=== PATIENT | male | born 1950 | race Caucasian/White ===

== ENCOUNTER 2017-01-09 08:24 | Inpatient (IN) | payer BC, MEDICARE ==
[~2017-01-09] VITALS: Ht 175.3 cm; Wt 58.2 kg
[2017-01-09] MEDS ORDERED: 0.9 % SODIUM CHLORIDE 10 ML DISP.SYRIN. IV PRN (08:45)
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
[2017-01-09] MEDS ORDERED: IV NORMAL SALINE 1000ML BAG 1,000 ML IV SCH (09:00)
[2017-01-09] MEDS ORDERED: FENTANYL PF 100 MCG/2 ML VIAL. IV ONE (09:00)
[2017-01-09] MEDS ORDERED: ONDANSETRON PF 4 MG/2 ML VIAL. IV ONE (09:00)
[2017-01-09 09:03] LABS: BASO # 0.1 x10^3/uL (0.0-0.2); BASO % 0 % (0-3); EOS % 0 % (0-3); HEMATOCRIT 41.6 % (39.0-53.0); LYMPH # 0.9 x10^3/uL (1.0-4.8); LYMPH % 4 % (24-48); MEAN CORPUSCULAR HEMOGLOBIN 28 pg (25-35); MEAN CORPUSCULAR HGB CONC 34 g/dL (31-37); MEAN CORPUSCULAR VOLUME 83 fL (79-100); MONO % 6 % (0-9); NEUT % 90 % (31-73); PLATELET COUNT 212 x10^3/uL (140-400); RED CELL DISTRIBUTION WIDTH 14.1 % (11.5-14.5); WHITE BLOOD COUNT 21.3 x10^3/uL (4.0-11.0)
[2017-01-09] MEDS ORDERED: CONTRAST GIVEN MC PRN (09:15)
[2017-01-09] MEDS ORDERED: IOHEXOL 300 MG/ML 75 ML VIAL IV ONE (09:15)
[2017-01-09 09:17] LABS: CALCIUM 9.3 mg/dL (8.5-10.1); CREATININE 0.8 mg/dL (0.7-1.3); GFR 96.7; INR 1.5 (0.8-1.1); POTASSIUM 3.8 mmol/L (3.5-5.1); PROTHROMBIN TIME PATIENT 16.8 SEC (11.7-14.0)
[2017-01-09 09:23] LABS: ALBUMIN 3.4 g/dL (3.4-5.0); ALBUMIN/GLOBULIN RATIO 0.8 (1.0-1.7); TOTAL BILIRUBIN 2.7 mg/dL (0.2-1.0); TOTAL PROTEIN 7.7 g/dL (6.4-8.2)
[2017-01-09 09:30] LABS: CKMB INDEX 0.7 % (0-4); CKMB MASS 1.6 ng/mL (0.0-3.6)
--- NOTE | 2017-01-09 10:06 | RAD ---
CT of the abdomen and pelvis with contrast, 01/09/2017: History: Pain, nausea and vomiting Multidetector CT imaging was performed following IV administration of contrast. There are mild streaky right basilar opacities compatible with scarring and/or atelectasis. There is a given history of previous right lung surgery. There is a small loculated appearing pleural fluid collection medially in the right base. A small 7 mm lymph node type densities noted in the epicardial fat on the right. No hepatic mass or bile duct dilatation is detected. The gallbladder is mildly distended. Its morales are slightly thickened. No radiopaque gallstones are seen. There is streaky increased density in the pericholecystic fat compatible with edema. This also surrounds a segment of the adjacent ascending colon with associated mural thickening. No discrete fluid collection is seen to suggest abscess. No pancreatic abnormality is detected. The spleen contains multiple calcified granulomas but is otherwise unremarkable. No renal abnormality is detected. There is mild calcific plaquing of the abdominal aorta and its branches without evidence of aneurysm. There are mildly prominent lymph nodes at the portacaval and celiac axis levels. The largest node at the portacaval level measures 13 mm in short axis dimension. No other abdominal or pelvic adenopathy is seen. The prostate gland is mildly enlarged and contains calcifications. Colonic diverticula are present primarily in the sigmoid region. No paracolonic inflammatory process is seen at that level. There is radiopaque material in the colonic lumen which may represent medication or contrast from a previous diagnostic study. The large and small bowel loops are not dilated. No free air is evident in the abdomen. There is a trace amount of free fluid in the pelvis. Moderate scattered degenerative changes are present in the spine. IMPRESSION: 1. Right upper quadrant pericholecystic inflammatory process also surrounding a segment of the adjacent ascending colon with associated mural thickening. A gallbladder origin is most likely. Focal colitis or colonic neoplasm with microperforation are less likely possibilities. 2. Trace amount of free fluid in the pelvis. 3. Minimal portacaval adenopathy which may be on a reactive basis. 4. Sigmoid diverticulosis. PQRS Compliance Statement: One or more of the following individualized dose reduction techniques were utilized for this examination: 1. Automated exposure control 2. Adjustment of the mA and/or kV according to patient size 3. Use of iterative reconstruction technique
--- NOTE | 2017-01-09 10:31 | EKG ---
[facility] [address] [place] [address] Test Date: 2017-01-09 Test Time: 08:53:45 Pat Name: PHILIP ABDULLAHI Department: Room: Gender: Delivery Driver/Supervisor: : [id number] Requested By: SUJEY BURNETT Order Number: [id number] Reading MD: Measurements Intervals [place] Rate: 95 P: 36 AR: 148 QRS: 48 QRSD: 90 T: 48 QT: 332 QTc: 420 Interpretive Statements SINUS RHYTHM ATRIAL PREMATURE COMPLEX(ES) QRS(T) CONTOUR ABNORMALITY CONSIDER ANTEROSEPTAL MYOCARDIAL DAMAGE CONSIDER INFERIOR MYOCARDIAL DAMAGE POSSIBLY ABNORMAL ECG RI6.01 No previous ECG available for comparison
[2017-01-09] MEDS ORDERED: PIPERACILLIN/TAZOBACTAM 3.375 GM in IV NORMAL SALINE 50ML 50 ML IV ONE (11:15)
[2017-01-09] MEDS ORDERED: PIP/TAZO PER PHARMACY MC PRN (11:15)
[2017-01-09] MEDS ORDERED: MORPHINE SULFATE 10 MG/ML VIAL. IV ONE (11:15)
[2017-01-09 11:46] LABS: BILIRUBIN,URINE NEGATIVE (NEG); GLUCOSE,URINE NEGATIVE (NEG); NITRITE,URINE NEGATIVE (NEG); PROTEIN,URINE 30 mg/dL (NEG-TRACE)
[2017-01-09 12:05] LABS: BACTERIA,URINE 0 /HPF (0-FEW); SQUAMOUS EPITHELIAL CELL,UR OCC /LPF; WBC,URINE 0 /HPF (0-4)
[2017-01-09 12:32] LABS: % BASOS 1 % (0-3); % EOS 1 % (0-5); PLT ESTIMATE ADEQUATE (ADEQUATE)
--- NOTE | 2017-01-09 14:27 | ACF ---
Admission Forms Criteria ABDOMINAL PAIN Clinical Indications for Admission to Inpatient Care (Place 'X' for any and all applicable criteria): Admission is indicated for ANY ONE of the following(1)(2)(3)(4)(5): [X]I. Inpatient admission required rather than observation care (Also use Abdominal Pain: Observation Care, as appropriate) because of ANY ONE of the following: [ ]a) Severe pain requiring acute inpatient management [X]b) Identification of etiology/finding that requires inpatient care (eg, aortic dissection, free air) [ ]c) Absent bowel sounds with complete ileus(6) [ ]d) Suspected toxic megacolon [ ]e) Severe electrolyte abnormalities requiring inpatient care [ ]f) High fever or infection requiring inpatient admission as indicated by ANY ONE of following(7)(8): [ ] i) Appropriate outpatient or observational care antimicrobial treatment unavailable, not effective, or not feasible [ ] ii) Documented bacteremia [ ] iii) Temperature > 104.9 degrees F (oral) [ ] iv) T >103.1 F (oral) or < 96.8 F(rectal) that does not respond to all emergency treatment measures [ ]g) Signs of intestinal obstruction [B] [ ]h) Hemodynamic instability [ ]i) IV fluid to replace significant ongoing losses (greater than 3 L/m2 per day) (12)(13) [ ]j) Percutaneous or open drainage (eg, abscess, biliary tract ) procedures [ ]k) Parenteral nutrition regimen that must be implemented on inpatient basis [ ]l) Other condition,treatment or monitoring requiring inpatient admission. [ ]II. Peritoneal signs present [ ]III. Surgery needed that cannot be performed on an ambulatory basis. [ ]IV. Evaluation requires patient to not eat or drink for extended period ( eg, more than 24 hours). [ ]V. Contraindications and/or Inappropriate clinical situations for Observational Care in patients with abdominal pain, when ANY ONE of the following is required: [ ]a) Thorough evaluation is required to prevent catastrophic events due to delays in diagnosing (e.g.Mesenteric ischemia) 1,3 [ ]b) Patient with severe pathology or with chronic symptoms unlikely to improve in the ED stay (3) [ ]. General contraindications and/or Inappropriate clinical situations for Observational Care in patients with abdominal pain, when ANY ONE of the following is required: [ ]a) Prediction of prolongation of LOS based on ANY ONE of the following may be considered as a contraindication for observational care 2, 3, 4, 5, 6, 7, 8, 9, 10, 11 [ ]i) Age > 65 yrs. [ ]ii) Patient arriving by ambulance [ ]iii) Patient with high acuity [ ]iv) Patient requiring vital sign monitoring [ ]v) Patient on IV medication [ ]b) Systolic blood pressures 180mmHg 3,12 [ ]c) Patient with altered mental status including delirium and other alteration of consciousness, (3) [ ]d) Patient whose discharge disposition will be to a prison home or rehabilitation home should not be managed in Emergency Department Observation Unit. CMS rule requires 3 days hospital stay before such placement.3,13 [ ]e) Patient with failure to thrive due to broad array of etiologies 3,16,17 [ ]f) Inability to ambulate 3,14 Extended stay beyond goal length of stay may be needed for(2)(3): [ ]a) Persistent abdominal pain with suspected intra-abdominal process [ ]b) Diagnosed condition requiring continued stay (e.g., pancreatitis, complicated diverticulitis) [ ]c) Surgery (e.g., colectomy) The original [facility] content created by [employer] has been revised. The portions of the content which have been revised are identified through the use of italic text or in bold, and [facility] has neither reviewed nor approved the modified material.All other unmodified content is copyright [employer]. Please see references footnoted in the original [facility] edition 2016 Admission Criteria Met?: Yes LEONARDA FERREIRA Jan 09, 2017 14:27
[2017-01-09 15:00] VITALS: BP 129/65
--- NOTE | 2017-01-09 15:31 | RAD ---
Right upper quadrant abdominal ultrasound, 01/09/2017: History: Abdominal pain, gallstones The gallbladder contains multiple echogenic foci with posterior acoustic shadowing. The appearance is that of cholelithiasis. The gallbladder morales are not clearly defined but appear to be at the upper limits of normal in thickness. The common hepatic duct measures 5 mm. No intrahepatic bile duct dilatation is seen. Limited views of the liver and right kidney show no abnormality. The pancreas was obscured by overlying bowel. IMPRESSION: Cholelithiasis
[2017-01-09] MEDS ORDERED: IPRA3AMP NEB (16:18)
[2017-01-09] MEDS ORDERED: ASPI81TA2 PO (16:18)
[2017-01-09] MEDS ORDERED: LISI1TAB3 PO (16:18)
[2017-01-09] MEDS ORDERED: MELO-156 PO (16:18)
[2017-01-09] MEDS ORDERED: CHOL10003 PO (16:18)
[2017-01-09] MEDS ORDERED: SENN1TAB70 PO (16:18)
[2017-01-09] MEDS ORDERED: MAGN250T5 PO (16:18)
[2017-01-09] MEDS ORDERED: TIZA4TAB PO (16:18)
[2017-01-09] MEDS: PIPERACILLIN/TAZOBACTAM 3.375 GM in IV NORMAL SALINE 50ML 50 ML IV SCH (17:35)
[2017-01-09] MEDS: IV NORMAL SALINE 1000ML BAG 1,000 ML IV SCH ×2 (17:36→21:04)
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
[2017-01-09 19:20] VITALS: BP 125/70
[2017-01-09] MEDS: IPRATRPIUM/ALBUTEROL 0.5/2.5MG 3 ML NEBU. NEB SCH (20:27)
[2017-01-09] MEDS ORDERED: ACETAMINOPHEN 325 MG TABLET. PO PRN (20:30)
[2017-01-09] MEDS: tiZANidine 4 MG TABLET. PO SCH (20:57)
[2017-01-09] MEDS: ONDANSETRON PF 4 MG/2 ML VIAL. IV PRN (20:58)
[2017-01-09] MEDS: MORPHINE SULFATE 10 MG/ML VIAL. IV PRN (21:01)
[2017-01-09 23:18] VITALS: BP 78/48
[2017-01-10] VITALS (11 sets, daily range): BP systolic 90–125; BP diastolic 55–74
[2017-01-10 05:13] LABS: BASO # 0.1 x10^3/uL (0.0-0.2); BASO % 1 % (0-3); EOS % 1 % (0-3); HEMATOCRIT 36.1 % (39.0-53.0); HEMOGLOBIN 11.6 g/dL (13.0-17.5); LYMPH # 1.4 x10^3/uL (1.0-4.8); LYMPH % 11 % (24-48); MEAN CORPUSCULAR HEMOGLOBIN 28 pg (25-35); MEAN CORPUSCULAR HGB CONC 32 g/dL (31-37); MEAN CORPUSCULAR VOLUME 86 fL (79-100); MONO % 8 % (0-9); NEUT % 79 % (31-73); PLATELET COUNT 166 x10^3/uL (140-400)
[2017-01-10] MEDS: IV NORMAL SALINE 1000ML BAG 1,000 ML IV SCH (05:25)
[2017-01-10] MEDS: PIPERACILLIN/TAZOBACTAM 3.375 GM in IV NORMAL SALINE 50ML 50 ML IV SCH ×6 (05:25→23:58)
[2017-01-10] MEDS: MORPHINE SULFATE 10 MG/ML VIAL. IV PRN ×3 (05:34→19:49)
[2017-01-10] MEDS: ONDANSETRON PF 4 MG/2 ML VIAL. IV PRN (05:36)
[2017-01-10] MEDS ORDERED: SURGICEL FIBRILLAR 1X2 EACH. ONE (07:12)
[2017-01-10] MEDS ORDERED: BUPIVACAINE-EPI 0.25%-1:200000 MPF 30 ML VIAL. ONE (07:12)
[2017-01-10] MEDS ORDERED: IOHEXOL 300 MG/ML 50 ML VIAL. ONE (07:12)
[2017-01-10] MEDS ORDERED: SURGICEL HEMOSTAT 4X8 EACH. ONE (07:13)
[2017-01-10] MEDS: IPRATRPIUM/ALBUTEROL 0.5/2.5MG 3 ML NEBU. NEB SCH ×5 (07:24→20:21)
[2017-01-10] MEDS ORDERED: LIDOCAINE 2% 100 MG/5 ML SYRINGE. ONE (07:25)
[2017-01-10] MEDS ORDERED: PROPOFOL 20 ML IV ONE (07:25)
[2017-01-10] MEDS ORDERED: ROCURONIUM 50 MG/5 ML VIAL. ONE (07:25)
[2017-01-10] MEDS ORDERED: DEXAMETHASONE SOD PHOS 20 MG/5 ML VIAL. ONE (07:25)
[2017-01-10] MEDS ORDERED: ONDANSETRON PF 4 MG/2 ML VIAL. ONE (07:25)
[2017-01-10] MEDS ORDERED: FENTANYL PF 250 MCG/5 ML VIAL. ONE (07:30)
[2017-01-10] MEDS ORDERED: SUCCINYLCHOLINE 200 MG/10 ML VIAL. ONE (07:49)
[2017-01-10] MEDS ORDERED: IV RINGERS,LACTATED 1000ML 1,000 ML IV ONE (08:00)
[2017-01-10] MEDS ORDERED: EPHEDRINE PF IN SALINE 50 MG/5 ML DISP.SYRIN. IV ONE (08:01)
[2017-01-10] MEDS ORDERED: NEOSTIGMINE METHYLSULFATE 5 MG/5 ML SYRINGE. ONE (08:28)
[2017-01-10] MEDS ORDERED: GLYCOPYRROLATE 1 MG/5 ML VIAL. ONE (08:28)
--- NOTE | 2017-01-10 08:41 | RAD ---
Intraoperative cholangiogram History: Cholecystectomy. Procedure: A total of 1 fluoroscopic images of the right upper quadrant were obtained. The cystic duct was cannulated with surgeon and contrast was injected. Total fluoroscopic time was 25 seconds. Findings: The common hepatic bile duct and common bile duct are patent, without evidence of intraluminal filling defect or obstruction. Contrast empties normally into the duodenum. Impression: Unremarkable intraoperative cholangiogram. No evidence of choledocholithiasis.
[2017-01-10] MEDS ORDERED: DESFLURANE 61 TO 120 MINUTES IH ONE (08:51)
[2017-01-10] MEDS ORDERED: HYDROCHLOROTHIAZIDE PO SCH (09:00)
[2017-01-10] MEDS ORDERED: [UNRECOGNIZED DRUG - OTHER] PO SCH (09:00)
[2017-01-10] MEDS ORDERED: LISINOPRIL PO SCH (09:00)
--- NOTE | 2017-01-10 09:04 | PDOC ---
BRIEF OPERATIVE NOTE Date: Jan 10, 2017 Pre-Op Diagnosis Cholecystitis Post-Op Diagnosis Same, omental masses Procedure Performed L/S Cholecystectomy with IOC and omental biopsy Surgeon Max Anesthesia Type: General Blood Loss 30ml Specimens Obtained Gallbladder and omental mass Findings as above Complications None ASCENCION SCOTT MD Jan 10, 2017 09:04
[2017-01-10] MEDS ORDERED: ESMOLOL 100 MG/10 ML VIAL. IV ONE (09:24)
[2017-01-10] MEDS ORDERED: FENTANYL PF 100 MCG/2 ML VIAL. ONE (09:27)
[2017-01-10] MEDS ORDERED: IV RINGERS,LACTATED 1000ML 1,000 ML IV SCH (09:28)
[2017-01-10] MEDS: FENTANYL PF 100 MCG/2 ML VIAL. IV PRN ×3 (09:29→09:41)
[2017-01-10] MEDS ORDERED: LIDOCAINE 1% 1 ML SYRINGE. ID PRN (09:30)
[2017-01-10] MEDS ORDERED: FENTANYL PF 100 MCG/2 ML VIAL. IV PRN (09:30)
[2017-01-10] MEDS ORDERED: PROCHLORPERAZINE 10 MG/2 ML VIAL. IV PRN (09:30)
[2017-01-10] MEDS ORDERED: ONDANSETRON PF 4 MG/2 ML VIAL. IV PRN (09:30)
[2017-01-10] MEDS: MORPHINE SULFATE 2 MG/ML DISP.SYRIN. IV PRN ×2 (09:38→09:48)
[2017-01-10] MEDS ORDERED: METOPROLOL TARTRATE 5 MG/5 ML VIAL. ONE (09:49)
[2017-01-10] MEDS ORDERED: ACETAMINOPHEN INTRAVENOUS 100 ML IV ONE ×2 (10:17→10:30)
[2017-01-10] MEDS: HYDROMORPHONE 2 MG/ML VIAL. IV PRN ×2 (10:33→10:44)
[2017-01-10] MEDS: MAGNESIUM OXIDE 400 MG TABLET PO SCH (12:35)
[2017-01-10] MEDS: LISINOPRIL 5 MG TABLET. PO SCH (12:35)
[2017-01-10] MEDS: HYDROCHLOROTHIAZIDE 25 MG TABLET PO SCH (12:35)
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
[2017-01-10] MEDS: OXYCODONE/APAP 5/325 TABLET. PO PRN ×2 (17:02→21:04)
[2017-01-10 19:31] LABS: ALBUMIN 2.6 g/dL (3.4-5.0); ALBUMIN/GLOBULIN RATIO 0.7 (1.0-1.7); CALCIUM 8.4 mg/dL (8.5-10.1); CREATININE 0.9 mg/dL (0.7-1.3); GFR 84.4; POTASSIUM 3.6 mmol/L (3.5-5.1); TOTAL BILIRUBIN 1.6 mg/dL (0.2-1.0); TOTAL PROTEIN 6.4 g/dL (6.4-8.2)
[2017-01-10] MEDS: tiZANidine 4 MG TABLET. PO SCH (21:04)
[2017-01-11] MEDS ORDERED: ALBUTEROL SULFATE 2.5 MG/3 ML NEBU. NEB PRN (00:30)
[2017-01-11] MEDS ORDERED: METOPROLOL TART IMMED RELEASE 25 MG TABLET. PO ONE (02:00)
[2017-01-11 03:00] VITALS: BP 96/63
[2017-01-11] MEDS: PIPERACILLIN/TAZOBACTAM 3.375 GM in IV NORMAL SALINE 50ML 50 ML IV SCH ×3 (05:30→17:37)
[2017-01-11 07:00] VITALS: BP 118/67
[2017-01-11] MEDS: IPRATRPIUM/ALBUTEROL 0.5/2.5MG 3 ML NEBU. NEB SCH ×4 (07:44→20:05)
[2017-01-11] MEDS: HYDROCHLOROTHIAZIDE 25 MG TABLET PO SCH (08:31)
[2017-01-11] MEDS: MAGNESIUM OXIDE 400 MG TABLET PO SCH (08:32)
[2017-01-11] MEDS: LISINOPRIL 5 MG TABLET. PO SCH (08:32)
[2017-01-11] MEDS: TAMSULOSIN 0.4 MG CAP.ER.24H. PO SCH (08:32)
[2017-01-11] MEDS: OXYCODONE/APAP 5/325 TABLET. PO PRN ×2 (08:34→17:37)
--- NOTE | 2017-01-11 09:52 | PDOC ---
SURGICAL PROGRESS NOTE Subjective Pt with c/o soreness, nikunj PO, on oxygen, required jones cath placement yesterday for urinary retention Vital Signs Vital Signs Date Time Temp Pulse Resp B/P Pulse Ox O2 Delivery O2 Flow Rate FiO2 01/11/17 08:34 Nasal Cannula 2.0 01/11/17 08:32 73 118/67 01/11/17 07:45 98 01/11/17 07:00 98.1 20 98.1 I&O Intake and Output 01/11/17 06:59 Intake Total 1100 ml Output Total 975 ml Balance 125 ml IV Total 1100 ml Output Urine Total 950 ml Estimated Blood Loss 25 ml # Voids 1 PATIENT HAS A JONES: Yes (urinary retention) Abdomen: Soft, No tenderness, No masses Labs Laboratory Tests Test 01/09/17 11:23 01/10/17 04:54 Urine Collection Type Unknown Urine Color Yellow Urine Clarity Clear Urine pH 6.0 Urine Specific [place] >=1.030 Urine Protein 30mg/dL (NEG-TRACE) Urine Glucose (UA) Negativemg/dL (NEG) Urine Ketones (Stick) >=80mg/dL (NEG) Urine Blood Moderate (NEG) Urine Nitrite Negative (NEG) Urine Bilirubin Negative (NEG) Urine Urobilinogen Dipstick 2.0mg/dL (0.2 mg/dL) Urine Leukocyte Esterase Negative (NEG) Urine RBC 3-5/HPF (0-2) Urine WBC 0/HPF (0-4) Urine Squamous Epithelial Cells Occ/LPF Urine Bacteria 0/HPF (0-FEW) White Blood Count 13.0x10^3/uL (4.0-11.0) Red Blood Count 4.20x10^6/uL (4.30-5.70) Hemoglobin 11.6g/dL (13.0-17.5) Hematocrit 36.1% (39.0-53.0) Mean Corpuscular Volume 86fL (79-100) Mean Corpuscular Hemoglobin 28pg (25-35) Mean Corpuscular Hemoglobin Concent 32g/dL (31-37) Red Cell Distribution Width 14.0% (11.5-14.5) Platelet Count 166x10^3/uL (140-400) Neutrophils (%) (Auto) 79% (31-73) Lymphocytes (%) (Auto) 11% (24-48) Monocytes (%) (Auto) 8% (0-9) Eosinophils (%) (Auto) 1% (0-3) Basophils (%) (Auto) 1% (0-3) Neutrophils # (Auto) 10.3x10^3uL (1.8-7.7) Lymphocytes # (Auto) 1.4x10^3/uL (1.0-4.8) Monocytes # (Auto) 1.1x10^3/uL (0.0-1.1) Eosinophils # (Auto) 0.1x10^3/uL (0.0-0.7) Basophils # (Auto) 0.1x10^3/uL (0.0-0.2) Sodium Level 140mmol/L (136-145) Potassium Level 3.6mmol/L (3.5-5.1) Chloride Level 106mmol/L (98-107) Carbon Dioxide Level 28mmol/L (21-32) Anion Gap 6 (6-14) Blood Urea Nitrogen 19mg/dL (8-26) Creatinine 0.9mg/dL (0.7-1.3) Estimated GFR (Cockcroft-Gault) 84.4 BUN/Creatinine Ratio 21 (6-20) Glucose Level 100mg/dL (70-99) Calcium Level 8.4mg/dL (8.5-10.1) Total Bilirubin 1.6mg/dL (0.2-1.0) Aspartate Amino Transf (AST/SGOT) 39U/L (15-37) Alanine Aminotransferase (ALT/SGPT) 62U/L (16-63) Alkaline Phosphatase 76U/L (46-116) Total Protein 6.4g/dL (6.4-8.2) Albumin 2.6g/dL (3.4-5.0) Albumin/Globulin Ratio 0.7 (1.0-1.7) Problem List Problems Medical Problems: (1) Abdominal pain Status: Acute (2) Cholecystitis Status: Acute Assessment/Plan s/p lap la nena ADAT wean oxygen urinary retention Problems: KATHY CARDENAS MD Jan 11, 2017 09:52
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
[2017-01-11 11:00] VITALS: BP 122/67
[2017-01-11] MEDS: MORPHINE SULFATE 10 MG/ML VIAL. IV PRN (11:40)
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
[2017-01-11 14:18] LABS: CALCIUM 8.3 mg/dL (8.5-10.1); CREATININE 0.8 mg/dL (0.7-1.3); GFR 96.7; MAGNESIUM 2.1 mg/dL (1.8-2.4); POTASSIUM 3.5 mmol/L (3.5-5.1)
[2017-01-11 15:00] VITALS: BP 119/61
[2017-01-11 19:00] VITALS: BP 136/70
[2017-01-11] MEDS: METOPROLOL TART IMMED RELEASE 25 MG TABLET. PO SCH (21:15)
[2017-01-11] MEDS: tiZANidine 4 MG TABLET. PO SCH (21:15)
[2017-01-11 23:00] VITALS: BP 126/62
[2017-01-12 03:00] VITALS: BP 104/65
[2017-01-12] MEDS: PIPERACILLIN/TAZOBACTAM 3.375 GM in IV NORMAL SALINE 50ML 50 ML IV SCH ×4 (05:43→12:00)
[2017-01-12] MEDS: OXYCODONE/APAP 5/325 TABLET. PO PRN ×3 (05:46→23:30)
[2017-01-12 07:00] VITALS: BP 112/68
[2017-01-12] MEDS: IPRATRPIUM/ALBUTEROL 0.5/2.5MG 3 ML NEBU. NEB SCH ×4 (07:36→19:39)
[2017-01-12] MEDS: METOPROLOL TART IMMED RELEASE 25 MG TABLET. PO SCH ×2 (08:19→20:44)
[2017-01-12] MEDS: TAMSULOSIN 0.4 MG CAP.ER.24H. PO SCH (09:21)
[2017-01-12] MEDS: MAGNESIUM OXIDE 400 MG TABLET PO SCH (09:21)
[2017-01-12] MEDS: ONDANSETRON ODT 4 MG TAB.RAPDIS. PO PRN (09:21)
[2017-01-12] MEDS: HYDROCHLOROTHIAZIDE 25 MG TABLET PO SCH (09:21)
[2017-01-12] MEDS: LISINOPRIL 5 MG TABLET. PO SCH (09:22)
[2017-01-12 11:00] VITALS: BP 120/73
--- NOTE | 2017-01-12 11:22 | PDOC ---
PROGRESS NOTES Subjective Subjective Feeling better, no new comp Objective Objective Vital Signs Date Time Temp Pulse Resp B/P Pulse Ox O2 Delivery O2 Flow Rate FiO2 01/12/17 09:22 74 112/68 01/12/17 08:10 Room Air 2.0 01/12/17 07:38 98 01/12/17 07:00 99.3 16 99.3 Intake and Output 01/12/17 07:00 Intake Total 250 ml Output Total 1550 ml Balance -1300 ml Intake Oral 200 ml IV Total 50 ml Output Urine Total 1550 ml Stool Total 0 ml Physical Exam Abdomen: Normal bowel sounds, Soft Heart: Normal S1, Normal S2, Other (no gallops clicks rubs or obvious murmurs) Extremities: No cyanosis, No edema, Normal pulses General: Alert, Oriented X3, Cooperative, No acute distress HEENT: Atraumatic, EOMI Lungs: Clear to auscultation Neuro: Normal speech, Other (left upper extremtiy weakness) Psych/Mental Status: Mental status NL, Mood NL Skin: No significant lesion Assessment Assessment 1. Cardiac arrhythmia: Tele showed few episodes of atrial tachycardia, few with aberrant conduction resulting in wide complexes. Mg level normal. Continue beta blockers. Check 2D echo to assess LV function. We will consider event monitor as outpatient 2. hypertension - controlled 3. s/p lap la nena - per surgical team Plan Plan of Care Problems Medical Problems: (1) Abdominal pain Status: Acute (2) Cholecystitis Status: Acute Comment Review of Relevant I have reviewed the following items sammie (where applicable) has been applied. Labs Laboratory Tests Test 01/11/17 13:50 Sodium Level 135mmol/L (136-145) Potassium Level 3.5mmol/L (3.5-5.1) Chloride Level 99mmol/L (98-107) Carbon Dioxide Level 29mmol/L (21-32) Anion Gap 7 (6-14) Blood Urea Nitrogen 21mg/dL (8-26) Creatinine 0.8mg/dL (0.7-1.3) Estimated GFR (Cockcroft-Gault) 96.7 Glucose Level 153mg/dL (70-99) Calcium Level 8.3mg/dL (8.5-10.1) Magnesium Level 2.1mg/dL (1.8-2.4) Medications Current Medications Metoprolol Tartrate (Lopressor) 12.5 mg BID PO Last administered on 01/12/17 08 :19; Start 01/11/17 at 21:00 Ondansetron HCl (Zofran Odt) 4 mg PRN Q4HRS PRN PO NAUSEA/VOMITING Last administered on 01/12/17 09:21; Start 01/12/17 at 09:15 Vitals/I & O Vital Sign - Last 24 Hours 01/11/17 01/11/17 01/11/17 01/11/17 11:40 12:24 15:00 17:37 Temp 98.3 98.3 Pulse 90 Resp 20 B/P 119/61 Pulse Ox 98 O2 Delivery Nasal Cannula Nasal Cannula Room Air Nasal Cannula O2 Flow Rate 2.0 2.0 2.0 01/11/17 01/11/17 01/11/17 01/11/17 18:46 19:00 20:00 20:07 Temp 98.1 98.1 Pulse 102 Resp 20 B/P 136/70 Pulse Ox 94 97 O2 Delivery Room Air Room Air Room Air O2 Flow Rate 2.0 3.0 01/11/17 01/11/17 01/12/17 01/12/17 21:15 23:00 03:00 05:46 Temp 98.4 98.4 98.4 98.4 Pulse 102 89 77 Resp 18 18 20 B/P 136/70 126/62 104/65 Pulse Ox 95 97 97 O2 Delivery Nasal Cannula Nasal Cannula Room Air O2 Flow Rate 2.0 2.0 01/12/17 01/12/17 01/12/17 01/12/17 06:46 07:00 07:38 08:10 Temp 99.3 99.3 Pulse 74 Resp 20 16 B/P 112/68 Pulse Ox 93 98 98 O2 Delivery BiPAP/CPAP Nasal Cannula Nasal Cannula Room Air O2 Flow Rate 2.0 2.0 2.0 01/12/17 01/12/17 08:19 09:22 Pulse 74 74 B/P 112/68 112/68 Intake and Output 01/11/17 01/11/17 01/12/17 15:00 23:00 07:00 Intake Total 50 ml 200 ml Output Total 1100 ml 450 ml Balance 50 ml -1100 ml -250 ml LILIAN MOSELEY MD Jan 12, 2017 11:22
--- NOTE | 2017-01-12 12:45 | PDOC ---
PROGRESS NOTES Subjective Subjective Patient with out new complaints. more episodes of svt noted cardiology started beta sukumar. Ayoub still in for urinary retention await urology eval possible voiding trial in AM and home if stable. Ayoub with leg bag and urology F/U if still in retention. Objective Objective Vital Signs Date Time Temp Pulse Resp B/P Pulse Ox O2 Delivery O2 Flow Rate FiO2 01/12/17 12:18 Nasal Cannula 2.0 01/12/17 11:00 98.1 83 20 120/73 96 98.1 Intake and Output 01/12/17 07:00 Intake Total 250 ml Output Total 1550 ml Balance -1300 ml Intake Oral 200 ml IV Total 50 ml Output Urine Total 1550 ml Stool Total 0 ml Physical Exam Abdomen: Normal bowel sounds Heart: Regular rate Extremities: No clubbing General: Alert Lungs: Clear to auscultation Assessment Assessment Problems Medical Problems: (1) Abdominal pain Status: Acute (2) Cholecystitis Status: Acute POD #2 lap cholecystectomy Urinary retention SVT with PAC and aberrant conduction Acute cholecystitis. Underlying chronic obstructive pulmonary disease. Hypertension. 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 Labs Laboratory Tests Test 01/11/17 13:50 Sodium Level 135mmol/L (136-145) Potassium Level 3.5mmol/L (3.5-5.1) Chloride Level 99mmol/L (98-107) Carbon Dioxide Level 29mmol/L (21-32) Anion Gap 7 (6-14) Blood Urea Nitrogen 21mg/dL (8-26) Creatinine 0.8mg/dL (0.7-1.3) Estimated GFR (Cockcroft-Gault) 96.7 Glucose Level 153mg/dL (70-99) Calcium Level 8.3mg/dL (8.5-10.1) Magnesium Level 2.1mg/dL (1.8-2.4) Laboratory Tests Test 01/11/17 13:50 Sodium Level 135mmol/L (136-145) Potassium Level 3.5mmol/L (3.5-5.1) Chloride Level 99mmol/L (98-107) Carbon Dioxide Level 29mmol/L (21-32) Anion Gap 7 (6-14) Blood Urea Nitrogen 21mg/dL (8-26) Creatinine 0.8mg/dL (0.7-1.3) Estimated GFR (Cockcroft-Gault) 96.7 Glucose Level 153mg/dL (70-99) Calcium Level 8.3mg/dL (8.5-10.1) Magnesium Level 2.1mg/dL (1.8-2.4) Medications Current Medications Sodium Chloride (Iv Sodium Chloride 0.9% 1000ml Bag) 1,000 ml @ 1,000 mls/hr Q1H IV Last administered on 01/09/17 09:53; Start 01/09/17 at 09:00; Stop at 09:59; Status DC Sodium Chloride (Normal Saline Flush) 10 ml QSHIFT PRN IV AFTER MEDS AND BLOOD DRAWS; Start 01/09/17 at 08:45; Stop 01/12/17 at 12:31; Status DC Fentanyl Citrate (Fentanyl 2ml Vial) 50 mcg 1X ONCE IV Last administered on 09:54; Start 01/09/17 at 09:00; Stop 01/09/17 at 09:01; Status DC Ondansetron HCl (Zofran) 4 mg 1X ONCE IV Last administered on 01/09/17 09:54; Start 01/09/17 at 09:00; Stop 01/09/17 at 09:01; Status DC Iohexol (Omnipaque 300 Mg/ml) 75 ml 1X ONCE IV Last administered on 01/09/17 09:26; Start 01/09/17 at 09:15; Stop 01/09/17 at 09:16; Status DC Info 1 each 1 each PRN DAILY PRN MC SEE COMMENTS; Start 01/09/17 at 09:15; Stop 01/11/17 at 09:14; Status DC Piperacillin Sod/ Tazobactam Sod/ Sodium Chloride (Zosyn/Iv Sodium Chloride 0.9 % 50ml) 50 ml @ 100 mls/hr 1X ONCE IV Last administered on 01/09/17 11:19; Start 01/09/17 at 11:15; Stop 01/09/17 at 11:44; Status DC Morphine Sulfate 5 mg 1X ONCE IV Last administered on 01/09/17 11:19; Start at 11:15; Stop 01/09/17 at 11:16; Status DC Ondansetron HCl 4 mg 4 mg PRN Q8HRS PRN IV NAUSEA/VOMITING Last administered on 01/10/17 05:36; Start 01/09/17 at 11:00; Stop 01/10/17 at 10:59; Status DC Sodium Chloride (Iv Sodium Chloride 0.9% 1000ml Bag) 1,000 ml @ 125 mls/hr Q8H IV Last administered on 01/10/17 05:25; Start 01/09/17 at 11:30; Stop 01/10/17 at 11:29; Status DC Morphine Sulfate 5 mg PRN Q4HRS PRN IV pain Last administered on 01/11/17 11:40 ; Start 01/09/17 at 11:00; Stop 01/12/17 at 12:31; Status DC Piperacillin Sod/ Tazobactam Sod 1 each 1 each PRN DAILY PRN MC SEE COMMENTS; Start 01/09/17 at 11:15; Stop 01/12/17 at 12:31; Status DC Piperacillin Sod/ Tazobactam Sod/ Sodium Chloride (Zosyn/Iv Sodium Chloride 0.9 % 50ml) 50 ml @ 100 mls/hr Q6HRS IV Last administered on 01/12/17 05:43; Start 01/09/17 at 18:00; Stop 01/12/17 at 12:31; Status DC Albuterol/ Ipratropium (Duoneb) 3 ml RTQID NEB Last administered on 01/12/17 12 :17; Start 01/09/17 at 20:00 Tizanidine HCl (Zanaflex) 4 mg QHS PO Last administered on 01/11/17 21:15; Start 01/09/17 at 21:00 Non-Formulary Medication 0.5 tab DAILY PO ; Start 01/10/17 at 09:00; Status UNV Magnesium Oxide (Magnesium Oxide) 200 mg DAILY PO Last administered on 09:21; Start 01/10/17 at 09:00 Lisinopril (Prinivil) 5 mg DAILY PO Last administered on 01/12/17 09:22; Start 01/10/17 at 09:00 Hydrochlorothiazide (Hydrodiuril) 6.25 mg DAILY PO Last administered on 09:21; Start 01/10/17 at 09:00; Stop 01/12/17 at 12:31; Status DC Acetaminophen (Tylenol) 650 mg PRN Q4HRS PRN PO MILD PAIN / TEMP Last administered on 01/09/17 20:57; Start 01/09/17 at 20:30 Cellulose 1 each STK-MED ONCE .ROUTE ; Start 01/10/17 at 07:12; Stop 01/10/17 at 07:13; Status DC Iohexol (Omnipaque 300 Mg/ml) 50 ml STK-MED ONCE .ROUTE Last administered on 08:07; Start 01/10/17 at 07:12; Stop 01/10/17 at 07:13; Status DC Bupivacaine HCl/ Epinephrine Bitart (Sensorcaine-Epi 0.25%-1:064998 Mpf) 30 ml STK-MED ONCE .ROUTE Last administered on 01/10/17 08:07; Start 01/10/17 at 07:12 ; Stop 01/10/17 at 07:13; Status DC Cellulose 1 each STK-MED ONCE .ROUTE ; Start 01/10/17 at 07:13; Stop 01/10/17 at 07:14; Status DC Dexamethasone Sodium Phosphate (Decadron) 20 mg STK-MED ONCE .ROUTE ; Start 01/10 at 07:25; Stop 01/10/17 at 07:26; Status DC Ondansetron HCl 4 mg 4 mg STK-MED ONCE .ROUTE ; Start 01/10/17 at 07:25; Stop 01/10/17 at 07:26; Status DC Propofol (Diprivan) 20 ml @ As Directed STK-MED ONCE IV ; Start 01/10/17 at 07:25 ; Stop 01/10/17 at 07:26; Status DC Lidocaine HCl (Lidocaine HCl 2% Abboject) 100 mg STK-MED ONCE .ROUTE ; Start 01/10/17 at 07:25; Stop 01/10/17 at 07:26; Status DC Rocuronium [place] (Zemuron) 50 mg STK-MED ONCE .ROUTE ; Start 01/10/17 at 07:25 ; Stop 01/10/17 at 07:26; Status DC Fentanyl Citrate (Fentanyl 5ml Vial) 250 mcg STK-MED ONCE .ROUTE ; Start at 07:30; Stop 01/10/17 at 07:31; Status DC Succinylcholine Chloride 200 mg 200 mg STK-MED ONCE .ROUTE ; Start 01/10/17 at 07 :49; Stop 01/10/17 at 07:50; Status DC Lactated Ringer's (Iv Lactated Ringers) 1,000 ml @ 75 mls/hr 1X ONCE IV Last administered on 01/10/17t 07:20; Start 01/10/17 at 08:00; Stop 01/10/17 at 21:19; Status DC Ephedrine Sulfate 50 mg STK-MED ONCE IV ; Start 01/10/17 at 08:01; Stop 01/10/17 at 08:02; Status DC Neostigmine Methylsulfate 5 mg STK-MED ONCE .ROUTE ; Start 01/10/17 at 08:28; Stop 01/10/17 at 08:29; Status DC Glycopyrrolate (Robinul) 1 mg STK-MED ONCE .ROUTE ; Start 01/10/17 at 08:28; Stop 01/10/17 at 08:29; Status DC Desflurane (Suprane) 60 ml STK-MED ONCE IH ; Start 01/10/17 at 08:51; Stop at 08:52; Status DC Oxycodone/ Acetaminophen (Percocet 5/325) 1 tab PRN Q4HRS PRN PO PAIN; Start at 09:15 Oxycodone/ Acetaminophen (Percocet 5/325) 2 tab PRN Q4HRS PRN PO PAIN Last administered on 01/12/17t 05:46; Start 01/10/17 at 09:15 Esmolol HCl (Brevibloc) 100 mg STK-MED ONCE IV ; Start 01/10/17 at 09:24; Stop at 09:25; Status DC Fentanyl Citrate (Fentanyl 2ml Vial) 100 mcg STK-MED ONCE .ROUTE ; Start at 09:27; Stop 01/10/17 at 09:28; Status DC Ondansetron HCl (Zofran) 4 mg PRN Q6HRS PRN IV NAUSEA/VOMITING; Start 01/10/17 at 09:30; Stop 01/11/17 at 09:29; Status DC Fentanyl Citrate (Fentanyl 2ml Vial) 25 mcg PRN Q5MIN PRN IV MILD PAIN Last administered on 01/10/17 09:41; Start 01/10/17 at 09:30; Stop 01/11/17 at 09:29; Status DC Fentanyl Citrate (Fentanyl 2ml Vial) 50 mcg PRN Q5MIN PRN IV MODERATE PAIN; Start 01/10/17 at 09:30; Stop 01/11/17 at 09:29; Status DC Morphine Sulfate 1 mg 1 mg PRN Q10MIN PRN IV SEVERE PAIN Last administered on 09:48; Start 01/10/17 at 09:30; Stop 01/11/17 at 09:29; Status DC Lactated Ringer's (Iv Lactated Ringers) 1,000 ml @ 0 mls/hr Q0M IV ; Start 01/10 at 09:28; Stop 01/10/17 at 21:27; Status DC Lidocaine HCl 2 ml PRN 1X PRN ID PRIOR TO IV START; Start 01/10/17 at 09:30; Stop 01/11/17 at 09:29; Status DC Hydromorphone HCl (Dilaudid) 0.5 mg PRN Q10MIN PRN IV SEV PAIN, Second choice Last administered on 01/10/17 10:44; Start 01/10/17 at 09:30; Stop 01/11/17 at 09: 29; Status DC Prochlorperazine Edisylate (Compazine) 5 mg PACU PRN PRN IV NAUSEA, MRX1; Start 01/10/17 at 09:30; Stop 01/11/17 at 09:29; Status DC Metoprolol Tartrate 5 mg 5 mg STK-MED ONCE .ROUTE ; Start 01/10/17 at 09:49; Stop 01/10/17 at 09:50; Status DC Acetaminophen 100 ml @ As Directed STK-MED ONCE IV ; Start 01/10/17 at 10:17; Stop 01/10/17 at 10:18; Status DC Acetaminophen (Ofirmev) 100 ml @ 400 mls/hr 1X ONCE IV Last administered on 10:21; Start 01/10/17 at 10:30; Stop 01/10/17 at 10:44; Status DC Albuterol Sulfate (Ventolin Neb Soln) 2.5 mg PRN QID PRN NEB SHORTNESS OF BREATH Last administered on 01/11/17 00:25; Start 01/11/17 at 00:30 Metoprolol Tartrate (Lopressor) 25 mg 1X ONCE PO Last administered on 02:15; Start 01/11/17 at 02:00; Stop 01/11/17 at 02:01; Status DC Tamsulosin HCl (Flomax) 0.4 mg DAILY PO Last administered on 01/12/17 09:21; Start 01/11/17 at 09:00 Metoprolol Tartrate (Lopressor) 12.5 mg BID PO Last administered on 01/12/17 08 :19; Start 01/11/17 at 21:00 Ondansetron HCl (Zofran Odt) 4 mg PRN Q4HRS PRN PO NAUSEA/VOMITING Last administered on 01/12/17 09:21; Start 01/12/17 at 09:15 Amoxicillin/ Clavulanate Potassium (Augmentin 875/ 125mg) 1 tab BID PO ; Start 01/12/17 at 21:00 Active Scripts Active Reported Aspirin 81 Mg Tab.chew 1 Tab PO DAILY Vitamin D3 (Cholecalciferol (Vitamin D3)) 1,000 Unit Tablet 1 Tab PO DAILY Magnesium (Magnesium Oxide) 250 Mg Tablet 250 Mg PO DAILY Stool Softener Tablet (Sennosides/Docusate Sodium) 1 Each Tablet 1 Each PO Meloxicam 7.5 Mg Tablet 1 Tab PO DAILY Tizanidine Hcl 4 Mg Tablet 1 Tab PO QHS Lisinopril-Hctz 10-12.5 Mg Tab (Lisinopril/Hydrochlorothiazide) 1 Each Tablet 0.5 Tab PO DAILY Duoneb 0.5-3(2.5) Mg/3 Ml (Albuterol/Ipratropium) 3 Ml Ampul.neb 3 Ml NEB QID Vitals/I & O Vital Sign - Last 24 Hours 01/11/17 01/11/17 01/11/17 01/11/17 15:00 17:37 18:46 19:00 Temp 98.3 98.1 98.3 98.1 Pulse 90 102 Resp 20 20 B/P 119/61 136/70 Pulse Ox 98 94 O2 Delivery Room Air Nasal Cannula Room Air O2 Flow Rate 2.0 2.0 01/11/17 01/11/17 01/11/17 01/11/17 20:00 20:07 21:15 23:00 Temp 98.4 98.4 Pulse 102 89 Resp 18 B/P 136/70 126/62 Pulse Ox 97 95 O2 Delivery Room Air Room Air Nasal Cannula O2 Flow Rate 3.0 2.0 01/12/17 01/12/17 01/12/17 01/12/17 03:00 05:46 06:46 07:00 Temp 98.4 99.3 98.4 99.3 Pulse 77 74 Resp 18 20 20 16 B/P 104/65 112/68 Pulse Ox 97 97 93 98 O2 Delivery Nasal Cannula Room Air BiPAP/CPAP Nasal Cannula O2 Flow Rate 2.0 2.0 01/12/17 01/12/17 01/12/17 01/12/17 07:38 08:10 08:19 09:22 Pulse 74 74 B/P 112/68 112/68 Pulse Ox 98 O2 Delivery Nasal Cannula Room Air O2 Flow Rate 2.0 2.0 01/12/17 01/12/17 11:00 12:18 Temp 98.1 98.1 Pulse 83 Resp 20 B/P 120/73 Pulse Ox 96 O2 Delivery Nasal Cannula Nasal Cannula O2 Flow Rate 2.0 2.0 Intake and Output 01/11/17 01/11/17 01/12/17 15:00 23:00 07:00 Intake Total 50 ml 200 ml Output Total 1100 ml 450 ml Balance 50 ml -1100 ml -250 ml JOSÉ MIGUEL RAINES MD Jan 12, 2017 12:44
--- NOTE | 2017-01-12 14:32 | PDOC ---
SURGICAL PROGRESS NOTE Subjective Pt reports feeling well from abd standpoint, nikunj diet, jones for retention Vital Signs Vital Signs Date Time Temp Pulse Resp B/P Pulse Ox O2 Delivery O2 Flow Rate FiO2 01/12/17 12:18 Nasal Cannula 2.0 01/12/17 11:00 98.1 83 20 120/73 96 98.1 I&O Intake and Output 01/12/17 07:00 Intake Total 250 ml Output Total 1550 ml Balance -1300 ml Intake Oral 200 ml IV Total 50 ml Output Urine Total 1550 ml Stool Total 0 ml General: Alert, Oriented X3, Cooperative, No acute distress Abdomen: Soft, No tenderness Labs Laboratory Tests Test 01/11/17 13:50 Sodium Level 135mmol/L (136-145) Potassium Level 3.5mmol/L (3.5-5.1) Chloride Level 99mmol/L (98-107) Carbon Dioxide Level 29mmol/L (21-32) Anion Gap 7 (6-14) Blood Urea Nitrogen 21mg/dL (8-26) Creatinine 0.8mg/dL (0.7-1.3) Estimated GFR (Cockcroft-Gault) 96.7 Glucose Level 153mg/dL (70-99) Calcium Level 8.3mg/dL (8.5-10.1) Magnesium Level 2.1mg/dL (1.8-2.4) Problem List Problems Medical Problems: (1) Abdominal pain Status: Acute (2) Cholecystitis Status: Acute Assessment/Plan s/p lap la nena jones per urology cards w/u ongoing ADAT wean oxygen Problems: KATHY CARDENAS MD Jan 12, 2017 14:32
[2017-01-12 15:00] VITALS: BP 137/83
[2017-01-12 19:00] VITALS: BP 115/43
[2017-01-12] MEDS: tiZANidine 4 MG TABLET. PO SCH (20:43)
[2017-01-12] MEDS: AMOXICILLIN/K CLAV 875/125MG TABLET. PO SCH (20:43)
[2017-01-12 23:26] VITALS: BP 100/51
[2017-01-13 03:00] VITALS: BP 100/59
[2017-01-13 07:00] VITALS: BP 135/66
[2017-01-13] MEDS: IPRATRPIUM/ALBUTEROL 0.5/2.5MG 3 ML NEBU. NEB SCH ×4 (07:13→20:38)
--- NOTE | 2017-01-13 08:37 | PDOC ---
PROGRESS NOTES Subjective Subjective Pt. with urinary retention Objective Objective Vital Signs Date Time Temp Pulse Resp B/P Pulse Ox O2 Delivery O2 Flow Rate FiO2 01/13/17 07:13 97 Nasal Cannula 3.0 01/13/17 03:00 99.0 74 18 100/59 99.0 Intake and Output 01/13/17 07:00 Intake Total 420 ml Output Total 2175 ml Balance -1755 ml Intake Oral 420 ml Output Urine Total 2175 ml # Voids 1 Physical Exam Physical Exam jones in place Assessment Assessment keep jones increase flomax to BID Follow up with urology PRESIDENT Reta Valdez in 1 week for voiding trial Problems Medical Problems: (1) Abdominal pain Status: Acute (2) Cholecystitis Status: Acute Comment Review of Relevant I have reviewed the following items sammie (where applicable) has been applied. Labs Laboratory Tests Test 01/11/17 13:50 01/13/17 03:08 Sodium Level 135mmol/L (136-145) Potassium Level 3.5mmol/L (3.5-5.1) Chloride Level 99mmol/L (98-107) Carbon Dioxide Level 29mmol/L (21-32) Anion Gap 7 (6-14) Blood Urea Nitrogen 21mg/dL (8-26) Creatinine 0.8mg/dL (0.7-1.3) Estimated GFR (Cockcroft-Gault) 96.7 Glucose Level 153mg/dL (70-99) Calcium Level 8.3mg/dL (8.5-10.1) Magnesium Level 2.1mg/dL (1.8-2.4) 1.9mg/dL (1.8-2.4) Laboratory Tests Test 01/13/17 03:08 Magnesium Level 1.9mg/dL (1.8-2.4) Medications Current Medications Sodium Chloride (Iv Sodium Chloride 0.9% 1000ml Bag) 1,000 ml @ 1,000 mls/hr Q1H IV Last administered on 01/09/17t 09:53; Start 01/09/17 at 09:00; Stop at 09:59; Status DC Sodium Chloride (Normal Saline Flush) 10 ml QSHIFT PRN IV AFTER MEDS AND BLOOD DRAWS; Start 01/09/17 at 08:45; Stop 01/12/17 at 12:31; Status DC Fentanyl Citrate (Fentanyl 2ml Vial) 50 mcg 1X ONCE IV Last administered on 09:54; Start 01/09/17 at 09:00; Stop 01/09/17 at 09:01; Status DC Ondansetron HCl (Zofran) 4 mg 1X ONCE IV Last administered on 01/09/17 09:54; Start 01/09/17 at 09:00; Stop 01/09/17 at 09:01; Status DC Iohexol (Omnipaque 300 Mg/ml) 75 ml 1X ONCE IV Last administered on 01/09/17 09:26; Start 01/09/17 at 09:15; Stop 01/09/17 at 09:16; Status DC Info 1 each 1 each PRN DAILY PRN MC SEE COMMENTS; Start 01/09/17 at 09:15; Stop 01/11/17 at 09:14; Status DC Piperacillin Sod/ Tazobactam Sod/ Sodium Chloride (Zosyn/Iv Sodium Chloride 0.9 % 50ml) 50 ml @ 100 mls/hr 1X ONCE IV Last administered on 01/09/17 11:19; Start 01/09/17 at 11:15; Stop 01/09/17 at 11:44; Status DC Morphine Sulfate 5 mg 1X ONCE IV Last administered on 01/09/17 11:19; Start at 11:15; Stop 01/09/17 at 11:16; Status DC Ondansetron HCl 4 mg 4 mg PRN Q8HRS PRN IV NAUSEA/VOMITING Last administered on 01/10/17 05:36; Start 01/09/17 at 11:00; Stop 01/10/17 at 10:59; Status DC Sodium Chloride (Iv Sodium Chloride 0.9% 1000ml Bag) 1,000 ml @ 125 mls/hr Q8H IV Last administered on 01/10/17 05:25; Start 01/09/17 at 11:30; Stop 01/10/17 at 11:29; Status DC Morphine Sulfate 5 mg PRN Q4HRS PRN IV pain Last administered on 01/11/17 11:40 ; Start 01/09/17 at 11:00; Stop 01/12/17 at 12:31; Status DC Piperacillin Sod/ Tazobactam Sod 1 each 1 each PRN DAILY PRN MC SEE COMMENTS; Start 01/09/17 at 11:15; Stop 01/12/17 at 12:31; Status DC Piperacillin Sod/ Tazobactam Sod/ Sodium Chloride (Zosyn/Iv Sodium Chloride 0.9 % 50ml) 50 ml @ 100 mls/hr Q6HRS IV Last administered on 01/12/17 05:43; Start 01/09/17 at 18:00; Stop 01/12/17 at 12:31; Status DC Albuterol/ Ipratropium (Duoneb) 3 ml RTQID NEB Last administered on 01/13/17 07:13; Start 01/09/17 at 20:00 Tizanidine HCl (Zanaflex) 4 mg QHS PO Last administered on 01/12/17 20:43; Start 01/09/17 at 21:00 Non-Formulary Medication 0.5 tab DAILY PO ; Start 01/10/17 at 09:00; Status UNV Magnesium Oxide (Magnesium Oxide) 200 mg DAILY PO Last administered on 09:21; Start 01/10/17 at 09:00 Lisinopril (Prinivil) 5 mg DAILY PO Last administered on 01/12/17 09:22; Start 01/10/17 at 09:00 Hydrochlorothiazide (Hydrodiuril) 6.25 mg DAILY PO Last administered on 09:21; Start 01/10/17 at 09:00; Stop 01/12/17 at 12:31; Status DC Acetaminophen (Tylenol) 650 mg PRN Q4HRS PRN PO MILD PAIN / TEMP Last administered on 01/09/17 20:57; Start 01/09/17 at 20:30 Cellulose 1 each STK-MED ONCE .ROUTE ; Start 01/10/17 at 07:12; Stop 01/10/17 at 07:13; Status DC Iohexol (Omnipaque 300 Mg/ml) 50 ml STK-MED ONCE .ROUTE Last administered on 08:07; Start 01/10/17 at 07:12; Stop 01/10/17 at 07:13; Status DC Bupivacaine HCl/ Epinephrine Bitart (Sensorcaine-Epi 0.25%-1:290667 Mpf) 30 ml STK-MED ONCE .ROUTE Last administered on 01/10/17 08:07; Start 01/10/17 at 07:12 ; Stop 01/10/17 at 07:13; Status DC Cellulose 1 each STK-MED ONCE .ROUTE ; Start 01/10/17 at 07:13; Stop 01/10/17 at 07:14; Status DC Dexamethasone Sodium Phosphate (Decadron) 20 mg STK-MED ONCE .ROUTE ; Start 01/10 at 07:25; Stop 01/10/17 at 07:26; Status DC Ondansetron HCl 4 mg 4 mg STK-MED ONCE .ROUTE ; Start 01/10/17 at 07:25; Stop 01/10/17 at 07:26; Status DC Propofol (Diprivan) 20 ml @ As Directed STK-MED ONCE IV ; Start 01/10/17 at 07:25 ; Stop 01/10/17 at 07:26; Status DC Lidocaine HCl (Lidocaine HCl 2% Abboject) 100 mg STK-MED ONCE .ROUTE ; Start 01/10/17 at 07:25; Stop 01/10/17 at 07:26; Status DC Rocuronium [place] (Zemuron) 50 mg STK-MED ONCE .ROUTE ; Start 01/10/17 at 07:25 ; Stop 01/10/17 at 07:26; Status DC Fentanyl Citrate (Fentanyl 5ml Vial) 250 mcg STK-MED ONCE .ROUTE ; Start at 07:30; Stop 01/10/17 at 07:31; Status DC Succinylcholine Chloride 200 mg 200 mg STK-MED ONCE .ROUTE ; Start 01/10/17 at 07 :49; Stop 01/10/17 at 07:50; Status DC Lactated Ringer's (Iv Lactated Ringers) 1,000 ml @ 75 mls/hr 1X ONCE IV Last administered on 01/10/17 07:20; Start 01/10/17 at 08:00; Stop 01/10/17 at 21:19; Status DC Ephedrine Sulfate 50 mg STK-MED ONCE IV ; Start 01/10/17 at 08:01; Stop 01/10/17 at 08:02; Status DC Neostigmine Methylsulfate 5 mg STK-MED ONCE .ROUTE ; Start 01/10/17 at 08:28; Stop 01/10/17 at 08:29; Status DC Glycopyrrolate (Robinul) 1 mg STK-MED ONCE .ROUTE ; Start 01/10/17 at 08:28; Stop 01/10/17 at 08:29; Status DC Desflurane (Suprane) 60 ml STK-MED ONCE IH ; Start 01/10/17 at 08:51; Stop at 08:52; Status DC Oxycodone/ Acetaminophen (Percocet 5/325) 1 tab PRN Q4HRS PRN PO PAIN Last administered on 01/12/17 23:30; Start 01/10/17 at 09:15 Oxycodone/ Acetaminophen (Percocet 5/325) 2 tab PRN Q4HRS PRN PO PAIN Last administered on 01/12/17 14:54; Start 01/10/17 at 09:15 Esmolol HCl (Brevibloc) 100 mg STK-MED ONCE IV ; Start 01/10/17 at 09:24; Stop at 09:25; Status DC Fentanyl Citrate (Fentanyl 2ml Vial) 100 mcg STK-MED ONCE .ROUTE ; Start at 09:27; Stop 01/10/17 at 09:28; Status DC Ondansetron HCl (Zofran) 4 mg PRN Q6HRS PRN IV NAUSEA/VOMITING; Start 01/10/17 at 09:30; Stop 01/11/17 at 09:29; Status DC Fentanyl Citrate (Fentanyl 2ml Vial) 25 mcg PRN Q5MIN PRN IV MILD PAIN Last administered on 01/10/17 09:41; Start 01/10/17 at 09:30; Stop 01/11/17 at 09:29; Status DC Fentanyl Citrate (Fentanyl 2ml Vial) 50 mcg PRN Q5MIN PRN IV MODERATE PAIN; Start 01/10/17 at 09:30; Stop 01/11/17 at 09:29; Status DC Morphine Sulfate 1 mg 1 mg PRN Q10MIN PRN IV SEVERE PAIN Last administered on 09:48; Start 01/10/17 at 09:30; Stop 01/11/17 at 09:29; Status DC Lactated Ringer's (Iv Lactated Ringers) 1,000 ml @ 0 mls/hr Q0M IV ; Start 01/10 at 09:28; Stop 01/10/17 at 21:27; Status DC Lidocaine HCl 2 ml PRN 1X PRN ID PRIOR TO IV START; Start 01/10/17 at 09:30; Stop 01/11/17 at 09:29; Status DC Hydromorphone HCl (Dilaudid) 0.5 mg PRN Q10MIN PRN IV SEV PAIN, Second choice Last administered on 01/10/17 10:44; Start 01/10/17 at 09:30; Stop 01/11/17 at 09: 29; Status DC Prochlorperazine Edisylate (Compazine) 5 mg PACU PRN PRN IV NAUSEA, MRX1; Start 01/10/17 at 09:30; Stop 01/11/17 at 09:29; Status DC Metoprolol Tartrate 5 mg 5 mg STK-MED ONCE .ROUTE ; Start 01/10/17 at 09:49; Stop 01/10/17 at 09:50; Status DC Acetaminophen 100 ml @ As Directed STK-MED ONCE IV ; Start 01/10/17 at 10:17; Stop 01/10/17 at 10:18; Status DC Acetaminophen (Ofirmev) 100 ml @ 400 mls/hr 1X ONCE IV Last administered on 10:21; Start 01/10/17 at 10:30; Stop 01/10/17 at 10:44; Status DC Albuterol Sulfate (Ventolin Neb Soln) 2.5 mg PRN QID PRN NEB SHORTNESS OF BREATH Last administered on 01/11/17 00:25; Start 01/11/17 at 00:30 Metoprolol Tartrate (Lopressor) 25 mg 1X ONCE PO Last administered on 02:15; Start 01/11/17 at 02:00; Stop 01/11/17 at 02:01; Status DC Tamsulosin HCl (Flomax) 0.4 mg DAILY PO Last administered on 01/12/17 09:21; Start 01/11/17 at 09:00 Metoprolol Tartrate (Lopressor) 12.5 mg BID PO Last administered on 01/12/17 20 :44; Start 01/11/17 at 21:00 Ondansetron HCl (Zofran Odt) 4 mg PRN Q4HRS PRN PO NAUSEA/VOMITING Last administered on 01/12/17 09:21; Start 01/12/17 at 09:15 Amoxicillin/ Clavulanate Potassium (Augmentin 875/ 125mg) 1 tab BID PO Last administered on 01/12/17 20:43; Start 01/12/17 at 21:00 Active Scripts Active Reported Aspirin 81 Mg Tab.chew 1 Tab PO DAILY Vitamin D3 (Cholecalciferol (Vitamin D3)) 1,000 Unit Tablet 1 Tab PO DAILY Magnesium (Magnesium Oxide) 250 Mg Tablet 250 Mg PO DAILY Stool Softener Tablet (Sennosides/Docusate Sodium) 1 Each Tablet 1 Each PO Meloxicam 7.5 Mg Tablet 1 Tab PO DAILY Tizanidine Hcl 4 Mg Tablet 1 Tab PO QHS Lisinopril-Hctz 10-12.5 Mg Tab (Lisinopril/Hydrochlorothiazide) 1 Each Tablet 0.5 Tab PO DAILY Duoneb 0.5-3(2.5) Mg/3 Ml (Albuterol/Ipratropium) 3 Ml Ampul.neb 3 Ml NEB QID Vitals/I & O Vital Sign - Last 24 Hours 01/12/17 01/12/17 01/12/17 01/12/17 09:22 11:00 12:18 14:54 Temp 98.1 98.1 Pulse 74 83 Resp 20 B/P 112/68 120/73 Pulse Ox 96 O2 Delivery Nasal Cannula Nasal Cannula Room Air O2 Flow Rate 2.0 2.0 01/12/17 01/12/17 01/12/17 01/12/17 15:00 15:50 15:58 19:00 Temp 99.3 98.0 99.3 98.0 Pulse 87 108 Resp 20 18 B/P 137/83 115/43 Pulse Ox 95 96 O2 Delivery Nasal Cannula Nasal Cannula Nasal Cannula Nasal Cannula O2 Flow Rate 2.0 2.0 2.0 2.0 01/12/17 01/12/17 01/12/17 01/12/17 19:39 20:00 20:44 23:26 Temp 99.6 99.6 Pulse 108 75 Resp 18 B/P 115/43 100/51 Pulse Ox 98 97 O2 Delivery Nasal Cannula Room Air Nasal Cannula O2 Flow Rate 3.0 2.0 2.0 4/9/17 4/10/17 4/10/17 4/10/17 23:30 00:30 03:00 07:13 Temp 99.0 99.0 Pulse 74 Resp 18 16 18 B/P 100/59 Pulse Ox 97 96 97 O2 Delivery Nasal Cannula Room Air Nasal Cannula Nasal Cannula O2 Flow Rate 2.0 2.0 3.0 Intake and Output 01/12/17 01/12/17 01/13/17 15:00 23:00 07:00 Intake Total 300 ml 120 ml Output Total 1650 ml 525 ml Balance -1350 ml -405 ml KAYLA SALAZAR MD Jan 13, 2017 08:37
[2017-01-13] MEDS: AMOXICILLIN/K CLAV 875/125MG TABLET. PO SCH ×2 (09:41→21:50)
[2017-01-13] MEDS: OXYCODONE/APAP 5/325 TABLET. PO PRN (09:41)
[2017-01-13] MEDS: MAGNESIUM OXIDE 400 MG TABLET PO SCH (09:41)
[2017-01-13] MEDS: TAMSULOSIN 0.4 MG CAP.ER.24H. PO SCH ×2 (09:41→21:51)
[2017-01-13] MEDS: LISINOPRIL 5 MG TABLET. PO SCH (09:42)
[2017-01-13] MEDS: METOPROLOL TART IMMED RELEASE 25 MG TABLET. PO SCH ×2 (09:42→21:51)
--- NOTE | 2017-01-13 10:08 | PDOC ---
CARDIO Progress Notes Date and Time Date of Service 01/13/17 Time of Evaluation 1025 Subjective Subjective: No Chest Pain, No shortness of breath, Other ("heart flutters sometimes" mild abdominal incisional tenderness) Vitals Vitals Vital Signs Date Time Temp Pulse Resp B/P Pulse Ox O2 Delivery O2 Flow Rate FiO2 01/13/17 09:42 88 135/66 01/13/17 09:41 Nasal Cannula 2.0 01/13/17 07:13 97 01/13/17 07:00 98.3 16 98.3 Weight Weight [ ] Input and Output Intake and Output Intake and Output 01/13/17 06:59 Intake Total 420 ml Output Total 2175 ml Balance -1755 ml Intake Oral 420 ml Output Urine Total 2175 ml # Voids 1 Laboratory Labs Laboratory Tests Test 01/13/17 03:08 Magnesium Level 1.9mg/dL (1.8-2.4) Physical Exam HEENT: Neck Supple W Full Motion Chest: Symmetric LUNGS: Clear to Auscultation Heart: S1S2, RRR, no murmurs Abdomen: Other (lap-la nena abdominal sites- tendernes ) Extremities: 2+ Dorsalis Pedis, No Edema, Other (RUE weakness ) Neurology: alert, oriented, follow commands Assessment Assessment 1. Cardiac arrhythmia: tele continues to show episodes of intermittent atrial tachycardia will increase BB for suppression. echo results pending. Check TSH discussed event monitor at discharge to note significance of arrhythmias- patient not interested. 2. hypertension well-controlled 3. s/p lap la nena continue post-op management per surgical team 4. urinary retention jones in place per urology LILLY OAKLEY APRN Jan 13, 2017 10:08
[2017-01-13 11:00] VITALS: BP 132/68
[2017-01-13] MEDS ORDERED: METOPROLOL TART IMMED RELEASE 25 MG TABLET. PO ONE (11:45)
[2017-01-13] MEDS ORDERED: TAMS0.4C97 PO (13:04)
[2017-01-13] MEDS ORDERED: LISI-338 PO (13:04)
[2017-01-13] MEDS ORDERED: METO25TA4 PO (13:04)
[2017-01-13] MEDS: ONDANSETRON ODT 4 MG TAB.RAPDIS. PO PRN (14:29)
[2017-01-13 15:00] VITALS: BP 129/69
--- NOTE | 2017-01-13 15:13 | PATHOLOGY ---
PATHOLOGY REPORT * * * * * * * * FINAL DIAGNOSIS: A. Gallbladder, laparoscopic cholecystectomy: - Cholelithiasis. - Acute necrotizing cholecystitis. B. Omentum biopsy: - Fibrinopurulent exudate and focal reactive mesothelial hyperplasia. (JPM:; d/t: 01/13/17) REPORT ELECTRONICALLY SIGNED BY: Williams Valdes M.D. DATE/TIME: 01/13/2017 15:12 * * * * * * * * GROSS PATHOLOGY: A. Received in formalin labeled "Philip Abdullahi, gallbladder and contents," is an 8.3 x 3.5 x 3.2 cm, previously punctured gallbladder with pink-joseph, shaggy serosal surfaces. Opening the gallbladder reveals a velvety, red-brown to smooth, light green mucosa and an average wall thickness of 0.1 cm. Calculi are present displaying a bright yellow and multinodular appearance, and no masses are noted grossly. Medical Records Field Technician sections from the body and fundus are submitted along with the proximal margin in cassette A1. B. The specimen is received in formalin labeled "Philip Hero, omentum biopsy". Received is a needle core of yellow-joseph soft tissue measuring 1.4 cm in length by 0.1 cm in diameter. The specimen is submitted entirely in cassette B1. (CAA; 01/10/2017) INITIAL CPT CODE(S): A; 65450 B; 73122 Professional services [place] [address] Technical services performed by [facility] at [address] [place] [address] [address] [address]. SPECIMEN(S) RECEIVED: A.Gallbladder and contents B.Omentum biopsy CLINICAL HISTORY: Cholecystitis PATIENT: PHILIP ABDULLAHI /AGE: 4 1950 (Age: 67) PATIENT #: [id number] ALT CASE #: SPECIMEN COLLECTION DATE: 01/10/2017 SPECIMEN RECEIVED DATE: 01/10/2017 [facility] - [address] [place] [address] - PHONE: [phone] * * * END OF REPORT * * *
--- NOTE | 2017-01-13 17:19 | CARD ---
APPROVED REPORT EXAM: Two-dimensional and M-mode echocardiogram with Doppler and color Doppler. Other Information Quality : GoodHR: 103bpm Rhythm : Tachycardia/Irregular INDICATION NSVT RISK FACTORS Hypertension Smoking 2D DIMENSIONS RVDd2.4 (2.9-3.5cm)Left Atrium(2D)2.4 (1.6-4.0cm) IVSd0.7 (0.7-1.1cm)Aortic Root(2D)3.4 (2.0-3.7cm) LVDd5.0 (3.9-5.9cm)LVOT Diameter2.2 (1.8-2.4cm) PWd0.7 (0.7-1.1cm)LVDs3.4 (2.5-4.0cm) FS (%) 32.4 %SV72.3 ml LVEF(%)60.4 (>50%) Aortic Valve AoV Peak Diogo.173.0cm/sAoV VTI31.6cm AO Peak GR.12.0mmHgLVOT Peak Diogo.128.3cm/s AO Mean GR.6mmHgAVA (VMAX)2.94cm2 Mitral Valve MV E Doerfpnh65.1cm/sMV E Peak Gr.4mmHg MV DECEL [id number] A Gaordwrh67.8cm/s E/A Ratio1.2MV A Pskbtums98tz Pulmonary Valve PV Peak Oircqmyr065.1cm/s Tricuspid Valve TR P. Hcuafhly318uq/sTR Peak Gr.52mmHg Pulmonary Vein S1 Xtwcflfv27.9cm/sD2 Yqjupsfe43.5cm/s PVa vlpceqhi40clxq LEFT VENTRICLE The left ventricle is normal size. There is normal left ventricular wall thickness. The left ventricu lar systolic function is normal and the ejection fraction is within normal range. The Ejection Fracti on is 60-65%. There is normal LV segmental wall motion. The left ventricular diastolic function and f illing is normal for age. RIGHT VENTRICLE The right ventricle is normal size. There is normal right ventricular wall thickness. The right ventr icular systolic function is normal. ATRIA The left atrium size is normal. The right atrium size is normal. The interatrial septum is intact wit h no evidence for an atrial septal defect or patent foramen ovale as noted on 2-D or Doppler imaging. AORTIC VALVE The aortic valve is mildly sclerotic. The aortic valve is trileaflet. Doppler and Color Flow revealed no significant aortic regurgitation. There is no significant aortic valvular stenosis. MITRAL VALVE The mitral valve leaflets are mildly thickened. There is no evidence of mitral valve prolapse. There is no mitral valve stenosis. Doppler and Color Flow revealed trace mitral regurgitation. TRICUSPID VALVE Doppler and Color Flow revealed mild tricuspid regurgitation. The pulmonary artery systolic pressure is estimated at 52 mmHg. PULMONIC VALVE The pulmonary valve is normal in structure and function. Doppler and Color Flow revealed no pulmonic valvular regurgitation. There is no pulmonic valvular stenosis. GREAT VESSELS The aortic root is normal in size. The ascending aorta is normal in size. The pulmonary is not well v isualized. The IVC is normal in size and collapses >50% with inspiration. PERICARDIAL EFFUSION There is no evidence of significant pericardial effusion. Critical Notification Critical Value: No <Conclusion> The left ventricle is normal size. The left ventricular systolic function is normal and the ejection fraction is within normal range. The Ejection Fraction is 60-65%. There is no significant aortic valvular stenosis. Doppler and Color Flow revealed no significant aortic regurgitation. Doppler and Color Flow revealed trace mitral regurgitation. Doppler and Color Flow revealed mild tricuspid regurgitation. The pulmonary artery systolic pressure is estimated at 52 mmHg.
[2017-01-13 19:15] VITALS: BP 133/64
[2017-01-13] MEDS: tiZANidine 4 MG TABLET. PO SCH (21:51)
[2017-01-13 23:10] VITALS: BP 128/68
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
[2017-01-14 02:56] VITALS: BP 119/70
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
[2017-01-14 07:00] VITALS: BP 141/86
[2017-01-14] MEDS: IPRATRPIUM/ALBUTEROL 0.5/2.5MG 3 ML NEBU. NEB SCH ×3 (07:24→15:47)
--- NOTE | 2017-01-14 09:13 | PDOC ---
PROGRESS NOTES Subjective Subjective Pt. feeling ok Objective Objective Vital Signs Date Time Temp Pulse Resp B/P Pulse Ox O2 Delivery O2 Flow Rate FiO2 01/14/17 07:00 97.5 85 18 141/86 90 Nasal Cannula 2.0 97.5 Intake and Output 01/14/17 07:00 Intake Total 480 ml Output Total 1230 ml Balance -750 ml Intake Oral 480 ml Output Urine Total 1230 ml # Bowel Movements 1 Physical Exam Physical Exam jones in place Assessment Assessment urine clear keep jones flomax f/u 1 week with urology EXERCISE SPECIALIST for voiding trial Problems Medical Problems: (1) Abdominal pain Status: Acute (2) Cholecystitis Status: Acute Comment Review of Relevant I have reviewed the following items sammie (where applicable) has been applied. Labs Laboratory Tests Test 01/13/17 03:08 Magnesium Level 1.9mg/dL (1.8-2.4) Thyroid Stimulating Hormone (TSH) 1.494uIU/mL (0.358-3.74) Medications Current Medications Sodium Chloride (Iv Sodium Chloride 0.9% 1000ml Bag) 1,000 ml @ 1,000 mls/hr Q1H IV Last administered on 01/09/17 09:53; Start 01/09/17 at 09:00; Stop at 09:59; Status DC Sodium Chloride (Normal Saline Flush) 10 ml QSHIFT PRN IV AFTER MEDS AND BLOOD DRAWS; Start 01/09/17 at 08:45; Stop 01/12/17 at 12:31; Status DC Fentanyl Citrate (Fentanyl 2ml Vial) 50 mcg 1X ONCE IV Last administered on 09:54; Start 01/09/17 at 09:00; Stop 01/09/17 at 09:01; Status DC Ondansetron HCl (Zofran) 4 mg 1X ONCE IV Last administered on 01/09/17 09:54; Start 01/09/17 at 09:00; Stop 01/09/17 at 09:01; Status DC Iohexol (Omnipaque 300 Mg/ml) 75 ml 1X ONCE IV Last administered on 01/09/17 09:26; Start 01/09/17 at 09:15; Stop 01/09/17 at 09:16; Status DC Info 1 each 1 each PRN DAILY PRN MC SEE COMMENTS; Start 01/09/17 at 09:15; Stop 01/11/17 at 09:14; Status DC Piperacillin Sod/ Tazobactam Sod/ Sodium Chloride (Zosyn/Iv Sodium Chloride 0.9 % 50ml) 50 ml @ 100 mls/hr 1X ONCE IV Last administered on 01/09/17 11:19; Start 01/09/17 at 11:15; Stop 01/09/17 at 11:44; Status DC Morphine Sulfate 5 mg 1X ONCE IV Last administered on 01/09/17 11:19; Start at 11:15; Stop 01/09/17 at 11:16; Status DC Ondansetron HCl 4 mg 4 mg PRN Q8HRS PRN IV NAUSEA/VOMITING Last administered on 01/10/17 05:36; Start 01/09/17 at 11:00; Stop 01/10/17 at 10:59; Status DC Sodium Chloride (Iv Sodium Chloride 0.9% 1000ml Bag) 1,000 ml @ 125 mls/hr Q8H IV Last administered on 01/10/17 05:25; Start 01/09/17 at 11:30; Stop 01/10/17 at 11:29; Status DC Morphine Sulfate 5 mg PRN Q4HRS PRN IV pain Last administered on 01/11/17 11:40 ; Start 01/09/17 at 11:00; Stop 01/12/17 at 12:31; Status DC Piperacillin Sod/ Tazobactam Sod 1 each 1 each PRN DAILY PRN MC SEE COMMENTS; Start 01/09/17 at 11:15; Stop 01/12/17 at 12:31; Status DC Piperacillin Sod/ Tazobactam Sod/ Sodium Chloride (Zosyn/Iv Sodium Chloride 0.9 % 50ml) 50 ml @ 100 mls/hr Q6HRS IV Last administered on 01/12/17 05:43; Start 01/09/17 at 18:00; Stop 01/12/17 at 12:31; Status DC Albuterol/ Ipratropium (Duoneb) 3 ml RTQID NEB Last administered on 01/14/17 07:24; Start 01/09/17 at 20:00 Tizanidine HCl (Zanaflex) 4 mg QHS PO Last administered on 01/13/17 21:51; Start 01/09/17 at 21:00 Non-Formulary Medication 0.5 tab DAILY PO ; Start 01/10/17 at 09:00; Status UNV Magnesium Oxide (Magnesium Oxide) 200 mg DAILY PO Last administered on 09:41; Start 01/10/17 at 09:00 Lisinopril (Prinivil) 5 mg DAILY PO Last administered on 01/13/17 09:42; Start 01/10/17 at 09:00 Hydrochlorothiazide (Hydrodiuril) 6.25 mg DAILY PO Last administered on 09:21; Start 01/10/17 at 09:00; Stop 01/12/17 at 12:31; Status DC Acetaminophen (Tylenol) 650 mg PRN Q4HRS PRN PO MILD PAIN / TEMP Last administered on 01/09/17 20:57; Start 01/09/17 at 20:30 Cellulose 1 each STK-MED ONCE .ROUTE ; Start 01/10/17 at 07:12; Stop 01/10/17 at 07:13; Status DC Iohexol (Omnipaque 300 Mg/ml) 50 ml STK-MED ONCE .ROUTE Last administered on 08:07; Start 01/10/17 at 07:12; Stop 01/10/17 at 07:13; Status DC Bupivacaine HCl/ Epinephrine Bitart (Sensorcaine-Epi 0.25%-1:449918 Mpf) 30 ml STK-MED ONCE .ROUTE Last administered on 01/10/17 08:07; Start 01/10/17 at 07:12 ; Stop 01/10/17 at 07:13; Status DC Cellulose 1 each STK-MED ONCE .ROUTE ; Start 01/10/17 at 07:13; Stop 01/10/17 at 07:14; Status DC Dexamethasone Sodium Phosphate (Decadron) 20 mg STK-MED ONCE .ROUTE ; Start 01/10 at 07:25; Stop 01/10/17 at 07:26; Status DC Ondansetron HCl 4 mg 4 mg STK-MED ONCE .ROUTE ; Start 01/10/17 at 07:25; Stop 01/10/17 at 07:26; Status DC Propofol (Diprivan) 20 ml @ As Directed STK-MED ONCE IV ; Start 01/10/17 at 07:25 ; Stop 01/10/17 at 07:26; Status DC Lidocaine HCl (Lidocaine HCl 2% Abboject) 100 mg STK-MED ONCE .ROUTE ; Start 01/10/17 at 07:25; Stop 01/10/17 at 07:26; Status DC Rocuronium [place] (Zemuron) 50 mg STK-MED ONCE .ROUTE ; Start 01/10/17 at 07:25 ; Stop 01/10/17 at 07:26; Status DC Fentanyl Citrate (Fentanyl 5ml Vial) 250 mcg STK-MED ONCE .ROUTE ; Start at 07:30; Stop 01/10/17 at 07:31; Status DC Succinylcholine Chloride 200 mg 200 mg STK-MED ONCE .ROUTE ; Start 01/10/17 at 07 :49; Stop 01/10/17 at 07:50; Status DC Lactated Ringer's (Iv Lactated Ringers) 1,000 ml @ 75 mls/hr 1X ONCE IV Last administered on 01/10/17 07:20; Start 01/10/17 at 08:00; Stop 01/10/17 at 21:19; Status DC Ephedrine Sulfate 50 mg STK-MED ONCE IV ; Start 01/10/17 at 08:01; Stop 01/10/17 at 08:02; Status DC Neostigmine Methylsulfate 5 mg STK-MED ONCE .ROUTE ; Start 01/10/17 at 08:28; Stop 01/10/17 at 08:29; Status DC Glycopyrrolate (Robinul) 1 mg STK-MED ONCE .ROUTE ; Start 01/10/17 at 08:28; Stop 01/10/17 at 08:29; Status DC Desflurane (Suprane) 60 ml STK-MED ONCE IH ; Start 01/10/17 at 08:51; Stop at 08:52; Status DC Oxycodone/ Acetaminophen (Percocet 5/325) 1 tab PRN Q4HRS PRN PO PAIN Last administered on 01/13/17 09:41; Start 01/10/17 at 09:15 Oxycodone/ Acetaminophen (Percocet 5/325) 2 tab PRN Q4HRS PRN PO PAIN Last administered on 01/12/17 14:54; Start 01/10/17 at 09:15 Esmolol HCl (Brevibloc) 100 mg STK-MED ONCE IV ; Start 01/10/17 at 09:24; Stop at 09:25; Status DC Fentanyl Citrate (Fentanyl 2ml Vial) 100 mcg STK-MED ONCE .ROUTE ; Start at 09:27; Stop 01/10/17 at 09:28; Status DC Ondansetron HCl (Zofran) 4 mg PRN Q6HRS PRN IV NAUSEA/VOMITING; Start 01/10/17 at 09:30; Stop 01/11/17 at 09:29; Status DC Fentanyl Citrate (Fentanyl 2ml Vial) 25 mcg PRN Q5MIN PRN IV MILD PAIN Last administered on 01/10/17 09:41; Start 01/10/17 at 09:30; Stop 01/11/17 at 09:29; Status DC Fentanyl Citrate (Fentanyl 2ml Vial) 50 mcg PRN Q5MIN PRN IV MODERATE PAIN; Start 01/10/17 at 09:30; Stop 01/11/17 at 09:29; Status DC Morphine Sulfate 1 mg 1 mg PRN Q10MIN PRN IV SEVERE PAIN Last administered on 09:48; Start 01/10/17 at 09:30; Stop 01/11/17 at 09:29; Status DC Lactated Ringer's (Iv Lactated Ringers) 1,000 ml @ 0 mls/hr Q0M IV ; Start 01/10 at 09:28; Stop 01/10/17 at 21:27; Status DC Lidocaine HCl 2 ml PRN 1X PRN ID PRIOR TO IV START; Start 01/10/17 at 09:30; Stop 01/11/17 at 09:29; Status DC Hydromorphone HCl (Dilaudid) 0.5 mg PRN Q10MIN PRN IV SEV PAIN, Second choice Last administered on 01/10/17 10:44; Start 01/10/17 at 09:30; Stop 01/11/17 at 09: 29; Status DC Prochlorperazine Edisylate (Compazine) 5 mg PACU PRN PRN IV NAUSEA, MRX1; Start 01/10/17 at 09:30; Stop 01/11/17 at 09:29; Status DC Metoprolol Tartrate 5 mg 5 mg STK-MED ONCE .ROUTE ; Start 01/10/17 at 09:49; Stop 01/10/17 at 09:50; Status DC Acetaminophen 100 ml @ As Directed STK-MED ONCE IV ; Start 01/10/17 at 10:17; Stop 01/10/17 at 10:18; Status DC Acetaminophen (Ofirmev) 100 ml @ 400 mls/hr 1X ONCE IV Last administered on 10:21; Start 01/10/17 at 10:30; Stop 01/10/17 at 10:44; Status DC Albuterol Sulfate (Ventolin Neb Soln) 2.5 mg PRN QID PRN NEB SHORTNESS OF BREATH Last administered on 01/11/17 00:25; Start 01/11/17 at 00:30 Metoprolol Tartrate (Lopressor) 25 mg 1X ONCE PO Last administered on 02:15; Start 01/11/17 at 02:00; Stop 01/11/17 at 02:01; Status DC Tamsulosin HCl (Flomax) 0.4 mg DAILY PO Last administered on 01/12/17 09:21; Start 01/11/17 at 09:00; Stop 01/13/17 at 08:36; Status DC Metoprolol Tartrate (Lopressor) 12.5 mg BID PO Last administered on 01/13/17 09:42; Start 01/11/17 at 21:00; Stop 01/13/17 at 10:56; Status DC Ondansetron HCl (Zofran Odt) 4 mg PRN Q4HRS PRN PO NAUSEA/VOMITING Last administered on 01/13/17 14:29; Start 01/12/17 at 09:15 Amoxicillin/ Clavulanate Potassium (Augmentin 875/ 125mg) 1 tab BID PO Last administered on 01/13/17 21:50; Start 01/12/17 at 21:00 Tamsulosin HCl (Flomax) 0.4 mg BID PO Last administered on 01/13/17 21:51; Start 01/13/17 at 09:00 Metoprolol Tartrate (Lopressor) 25 mg BID PO Last administered on 01/13/17 21: 51; Start 01/13/17 at 21:00 Metoprolol Tartrate (Lopressor) 12.5 mg 1X ONCE PO Last administered on 11:44; Start 01/13/17 at 11:45; Stop 01/13/17 at 11:46; Status DC Active Scripts Active Flomax (Tamsulosin Hcl) 0.4 Mg Cap.er.24h 0.4 Mg PO BID Lisinopril 5 Mg Tablet 5 Mg PO DAILY Metoprolol Tartrate 25 Mg Tablet 25 Mg PO BID Reported Aspirin 81 Mg Tab.chew 1 Tab PO DAILY Vitamin D3 (Cholecalciferol (Vitamin D3)) 1,000 Unit Tablet 1 Tab PO DAILY Magnesium (Magnesium Oxide) 250 Mg Tablet 250 Mg PO DAILY Stool Softener Tablet (Sennosides/Docusate Sodium) 1 Each Tablet 1 Each PO Meloxicam 7.5 Mg Tablet 1 Tab PO DAILY Tizanidine Hcl 4 Mg Tablet 1 Tab PO QHS Lisinopril-Hctz 10-12.5 Mg Tab (Lisinopril/Hydrochlorothiazide) 1 Each Tablet 0.5 Tab PO DAILY Duoneb 0.5-3(2.5) Mg/3 Ml (Albuterol/Ipratropium) 3 Ml Ampul.neb 3 Ml NEB QID Vitals/I & O Vital Sign - Last 24 Hours 01/13/17 01/13/17 01/13/17 01/13/17 09:41 09:42 09:42 10:45 Pulse 88 88 B/P 135/66 135/66 O2 Delivery Nasal Cannula Nasal Cannula O2 Flow Rate 2.0 2.0 01/13/17 01/13/17 01/13/17 01/13/17 11:00 11:11 11:44 15:00 Temp 98.6 97.4 98.6 97.4 Pulse 84 84 100 Resp 16 16 B/P 132/68 132/68 129/69 Pulse Ox 97 98 97 O2 Delivery Nasal Cannula Nasal Cannula Nasal Cannula O2 Flow Rate 2.0 3.0 2.0 01/13/17 01/13/17 01/13/17 01/13/17 15:30 19:15 20:00 20:39 Temp 98.2 98.2 Pulse 96 Resp 18 B/P 133/64 Pulse Ox 98 98 O2 Delivery Nasal Cannula Room Air Nasal Cannula Nasal Cannula O2 Flow Rate 3.0 3.0 2.0 3.0 01/13/17 01/13/17 01/14/17 01/14/17 21:51 23:10 02:56 07:00 Temp 99.7 98.0 97.5 99.7 98.0 97.5 Pulse 96 90 71 85 Resp 18 18 18 B/P 133/64 128/68 119/70 141/86 Pulse Ox 98 100 90 O2 Delivery Room Air Nasal Cannula Nasal Cannula O2 Flow Rate 2.0 1.0 2.0 Intake and Output 01/13/17 01/13/17 01/14/17 15:00 23:00 07:00 Intake Total 120 ml 360 ml Output Total 650 ml 580 ml Balance -530 ml -220 ml KAYLA SALAZAR MD Jan 14, 2017 09:13
[2017-01-14] MEDS: MAGNESIUM OXIDE 400 MG TABLET PO SCH (09:53)
[2017-01-14] MEDS: AMOXICILLIN/K CLAV 875/125MG TABLET. PO SCH (09:53)
[2017-01-14] MEDS: TAMSULOSIN 0.4 MG CAP.ER.24H. PO SCH (09:53)
[2017-01-14] MEDS: METOPROLOL TART IMMED RELEASE 25 MG TABLET. PO SCH (09:54)
[2017-01-14] MEDS: LISINOPRIL 5 MG TABLET. PO SCH (09:54)
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
--- NOTE | 2017-01-14 10:09 | OP ---
DATE OF SURGERY: 01/10/2017 PREOPERATIVE DIAGNOSIS: Cholecystitis. POSTOPERATIVE DIAGNOSES: Cholecystitis, omental mass. PROCEDURE: Laparoscopic cholecystectomy with intraoperative cholangiogram and omental biopsy. SURGEON: Schuyler Scott M.D. INDICATIONS: The patient is a 67-year-old gentleman who was admitted to the hospital with atypical chest pain, underwent cardiac workup, which was negative. He was also found to have gallstones and inflamed gallbladder. Procedure of laparoscopic cholecystectomy was explained to the patient in detail. Risks and benefits were also discussed including bleeding, infection, injury to intra-abdominal contents, possibility of sustaining further open operations, and alternatives of this procedure were also discussed with the patient who seemed to understand and gave verbal and written consent to have the procedure performed. DESCRIPTION OF PROCEDURE: The patient was taken to the operating room and placed in the supine position, general anesthesia was initiated. Once the patient was asleep and intubated, his abdomen was prepped and draped in usual sterile fashion using ChloraPrep. The area around the umbilicus was injected with 0.25% Marcaine with epinephrine. Incision was made with an 11 blade scalpel and a Veress needle was placed within the abdomen. Pneumoperitoneum was achieved. Once this was completed, an 11 mm port was placed and a 5 mm camera was placed within the abdomen. The abdomen was inspected. No other abnormalities were noted. It was noted that he had quite a bit of inflammation in and around the gallbladder. It was also noted that he had some small masses within the omentum and a few on the liver. These were suspicious in nature. At this point, three 5 mm ports were then placed under direct visualization, one in the epigastrium, 2 in the right upper quadrant. The dome of the gallbladder was grasped and retracted cephalad. The adherent omentum to the gallbladder was taken down with blunt dissection exposing the rest of the gallbladder. The infundibulum of the gallbladder was grasped and retracted laterally exposing the triangle of Calot. The adherent tissues of the triangle were taken down with blunt dissection exposing the cystic duct, which was clipped on the gallbladder side and it was partially opened with EndoShears scissors. The cholangiogram catheter was placed through a 14-gauge Angiocath through the anterior abdominal wall, placed within the cystic duct. This was clipped into place and a cholangiogram was shot, which showed good retrograde and antegrade flow of dye contrast material into the duodenum and into the hepatic radicles without any evidence of obstruction or stones within the biliary tree. At this point, the cholangiogram catheter was removed. The duct was doubly clipped and transected. The cystic artery was visualized, clipped, and then transected. The gallbladder was taken off the liver with hook electrocautery, placed in EndoCatch bag and removed from the umbilicus. Right upper quadrant was irrigated and suctioned dry. One of the small omental masses was biopsied with forceps biopsy and sent for pathology. Hemostasis seemed appropriate and the pneumoperitoneum was reduced. All ports were removed. Fascial defect at the umbilicus closed with [id number] 0 Vicryl suture and the skin was reapproximated at all port sites with 4-0 subcuticular Monocryl. Mastisol, Steri-Strips and Band-Aids were applied as dressings. The patient was awakened, extubated in the operating room, taken to recovery in stable condition. All sponge and instrument counts listed as correct. Estimated blood loss 20 mL. SCHUYLER SCOTT MD DR: ANGELO/demetrio JOB#: [id number] / [id number] JOSÉ MIGUEL Brooks MD
[2017-01-14] MEDS ORDERED: CONTRAST GIVEN MC PRN (10:30)
[2017-01-14] MEDS ORDERED: IOHEXOL 300 MG/ML 75 ML VIAL IV ONE (10:30)
[2017-01-14 10:53] VITALS: BP 115/59
--- NOTE | 2017-01-14 13:56 | PDOC ---
CARDIO Progress Notes Date and Time Date of Service 01/14/17 Time of Evaluation 1250 Subjective Subjective: No Chest Pain, Other (wanting to go home. mild SOA- on NC) Vitals Vitals Vital Signs Date Time Temp Pulse Resp B/P Pulse Ox O2 Delivery O2 Flow Rate FiO2 01/14/17 11:01 Nasal Cannula 2.0 01/14/17 10:53 97.9 84 18 115/59 94 97.9 Weight Weight [ ] Input and Output Intake and Output Intake and Output 01/14/17 07:00 Intake Total 480 ml Output Total 1230 ml Balance -750 ml Intake Oral 480 ml Output Urine Total 1230 ml # Bowel Movements 1 Physical Exam HEENT: Neck Supple W Full Motion Chest: Symmetric LUNGS: Clear to Auscultation Heart: S1S2, RRR, no murmurs Abdomen: Other (lap-la nena abdominal sites- tendernes ) Extremities: 2+ Dorsalis Pedis, No Edema, Other (RUE weakness ) Neurology: alert, oriented, follow commands Assessment Assessment 1. Cardiac arrhythmia: HR better controlled with increase to BB tele with few episodes of intermittent atrial tachycardia TSH WNL Echo with normal LV function again discussed event monitor at discharge to not arrhythmia burden- patient continues to decline. 2. hypertension well-controlled 3. s/p lap la nena continue post-op management per surgical team 4. urinary retention per urology LILLY OAKLEY APRN Jan 14, 2017 13:56
[2017-01-14 14:54] VITALS: BP 124/65
--- NOTE | 2017-01-14 16:35 | RAD ---
CTA of the chest with contrast, 01/14/2017: History: Shortness of breath, recent surgery Multidetector CT imaging was performed following an IV bolus injection of iodinated contrast material. Multiplanar reconstructions were produced including coronal MIP images. No filling defects are seen in the central pulmonary arteries to suggest pulmonary emboli. The thoracic aorta is of normal caliber. There are calcified mediastinal and right hilar lymph nodes compatible with old granulomatous disease. No mediastinal adenopathy is seen. There are moderate emphysematous changes in the lungs. There are scattered parenchymal scars. There is a coarse calcifications in the right upper lobe. There is moderate atelectasis posteriorly and inferiorly in the left lower lobe. There is a small amount of left-sided pleural fluid. There is a small amount of right-sided pleural fluid. Its configuration suggests partial loculation. There is mild underlying atelectasis in the right base. The scans include a portion of the upper abdomen. There are surgical clips in the gallbladder fossa. There is a partially visualized fluid collection in the gallbladder fossa measuring only 6.5 cm in diameter. There are mildly prominent lymph nodes in the celiac axis region, also noted on the 01/09/2017 exam. IMPRESSION: 1. No CT evidence of central pulmonary emboli. 2. Emphysema with parenchymal scarring. 3. Moderate left lower lobe atelectasis. 4. Small bilateral pleural effusions. 5. Postoperative fluid collection in the gallbladder fossa which could be a seroma or biloma, although abscess cannot be excluded. PQRS Compliance Statement: One or more of the following individualized dose reduction techniques were utilized for this examination: 1. Automated exposure control 2. Adjustment of the mA and/or kV according to patient size 3. Use of iterative reconstruction technique
--- NOTE | 2017-01-14 17:08 | PDOC ---
PULMONARY PROGRESS NOTES Vitals Vital Signs Date Time Temp Pulse Resp B/P Pulse Ox O2 Delivery O2 Flow Rate FiO2 01/14/17 15:47 98 Nasal Cannula 2.0 01/14/17 14:54 97.9 85 18 124/65 97.9 Labs Laboratory Tests Test 01/13/17 03:08 Magnesium Level 1.9mg/dL (1.8-2.4) Thyroid Stimulating Hormone (TSH) 1.494uIU/mL (0.358-3.74) Medications Active Scripts Medications Dose Route/Sig Days Date Category Flomax (Tamsulosin Hcl) 0.4 Mg Cap.er.24h 0.4 Mg PO BID 01/13/17 Rx Lisinopril 5 Mg Tablet 5 Mg PO DAILY 01/13/17 Rx Metoprolol Tartrate 25 Mg Tablet 25 Mg PO BID 01/13/17 Rx Aspirin 81 Mg Tab.chew 1 Tab PO DAILY 01/09/17 Reported Vitamin D3 (Cholecalciferol (Vitamin D3)) 1,000 Unit Tablet 1 Tab PO DAILY 01/09/17 Reported Magnesium (Magnesium Oxide) 250 Mg Tablet 250 Mg PO DAILY 01/09/17 Reported Stool Softener Tablet (Sennosides/Docusate Sodium) 1 Each Tablet 1 Each PO 01/09/17 Reported Meloxicam 7.5 Mg Tablet 1 Tab PO DAILY 01/09/17 Reported Tizanidine Hcl 4 Mg Tablet 1 Tab PO QHS 01/09/17 Reported Lisinopril-Hctz 10-12.5 Mg Tab (Lisinopril/Hydrochlorothiazide) 1 Each Tablet 0.5 Tab PO DAILY 01/09/17 Reported Duoneb 0.5-3(2.5) Mg/3 Ml (Albuterol/Ipratropium) 3 Ml Ampul.neb 3 Ml NEB QID 01/09/17 Reported Impression . FULL NOTE DICTATED NO PE ON CT OF CHEST, SOME ATELECTASIS COPD NEED 02 AT HOME WILL OBTAIN 6 MIN WALK D/C LATER FOLLOW UP IN MY OFFICE THANKS UNA SALCIDO MD Jan 14, 2017 17:08
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
== END 2017-01-14 19:07 | disposition home or self-care (01) | DRG 853 ==
LOC: ER 08:24 → ED HOLD 10:55 → 4 NORTH 12:40
PROVIDERS: ADMIT Family Medicine; ATTEND Family Medicine
PROC: BF121ZZ Fluoroscopy of Gallbladder using Low Osmolar Contrast (ICD-10-PCS; 2017-01-10)
PROC: 0DBS4ZX (ICD-10-PCS; 2017-01-10)
PROC: 0FT44ZZ Resection of Gallbladder, Percutaneous Endoscopic Approach (ICD-10-PCS; principal; 2017-01-10 08:00)
DX: A41.9 Sepsis, unspecified organism (principal); R65.21 Severe sepsis with septic shock; J96.21 Acute and chronic respiratory failure with hypoxia; K80.00 Calculus of gallbladder with acute cholecystitis without obstruction; I47.1 Supraventricular tachycardia; I47.2 Ventricular tachycardia; K83.0 Cholangitis; I10 Essential (primary) hypertension; J44.9 Chronic obstructive pulmonary disease, unspecified; K57.30 Diverticulosis of large intestine without perforation or abscess without bleeding; M17.0 Bilateral primary osteoarthritis of knee; N40.1 Benign prostatic hyperplasia with lower urinary tract symptoms; G83.9 Paralytic syndrome, unspecified; I49.3 Ventricular premature depolarization; R55 Syncope and collapse; M54.5 Low back pain; G58.9 Mononeuropathy, unspecified; R33.9 Retention of urine, unspecified; Z87.891 Personal history of nicotine dependence; Z80.42 Family history of malignant neoplasm of prostate; Z90.2 Acquired absence of lung [part of]
CPT/HCPCS: 36415; 71275; 74177; 74300; 76705; 80048; 80053; 81001; 82553; 83690; 83735; 84443; 84484; 85007; 85027; 85610; 88304; 88305; 93005; 93306; 94250; 94620; 94640; 94760; 96361; 96365; 96375; C1782; J0131; J0330; J1100; J1170; J2270; J2405; J2543; J2704; J2710; J3010; J3490; J7030; J7120; J7620; Q0162; Q9967; 97110; 97116; 97530; 99285-25

== ENCOUNTER 2017-01-22 11:06 | Inpatient (IN) | payer BC ==
[~2017-01-22] VITALS: Ht 175.3 cm; Wt 63.5 kg
[~2017-01-22 11:06] MED LIST: ASPI81TA2 PO; CHOL10003 PO; IPRA3AMP NEB; LISI-338 PO; LISI1TAB3 PO; MAGN250T5 PO; MELO-156 PO; METO25TA4 PO; SENN1TAB70 PO; TAMS0.4C97 PO; TIZA4TAB PO
[2017-01-22] MEDS ORDERED: IV NORMAL SALINE 1000ML BAG 1,000 ML IV SCH (12:20)
[2017-01-22 12:31] LABS: BILIRUBIN,URINE NEGATIVE (NEG); GLUCOSE,URINE NEGATIVE (NEG); NITRITE,URINE POSITIVE (NEG); PH,URINE 5.5; PROTEIN,URINE 100 mg/dL (NEG-TRACE); UROBILINOGEN,URINE 0.2 mg/dL (0.2 mg/dL)
[2017-01-22 12:41] LABS: RBC,URINE >40 /HPF (0-2); WBC,URINE TNTC /HPF (0-4)
[2017-01-22 12:42] LABS: BACTERIA,URINE MODERATE /HPF (0-FEW); BASO # 0.3 x10^3/uL (0.0-0.2); BASO % 1 % (0-3); EOS % 0 % (0-3); HEMATOCRIT 32.7 % (39.0-53.0); HEMOGLOBIN 10.9 g/dL (13.0-17.5); LYMPH # 1.3 x10^3/uL (1.0-4.8); LYMPH % 6 % (24-48); MEAN CORPUSCULAR HEMOGLOBIN 28 pg (25-35); MEAN CORPUSCULAR HGB CONC 33 g/dL (31-37); MEAN CORPUSCULAR VOLUME 83 fL (79-100); MONO % 9 % (0-9); NEUT % 83 % (31-73); PLATELET COUNT 517 x10^3/uL (140-400); RED BLOOD COUNT 3.93 x10^6/uL (4.30-5.70); RED CELL DISTRIBUTION WIDTH 14.1 % (11.5-14.5); SQUAMOUS EPITHELIAL CELL,UR MOD /LPF; WHITE BLOOD COUNT 20.7 x10^3/uL (4.0-11.0)
[2017-01-22 12:53] LABS: CREATININE 1.4 mg/dL (0.7-1.3); GFR 50.7; POTASSIUM 4.9 mmol/L (3.5-5.1)
[2017-01-22 12:58] LABS: ALBUMIN/GLOBULIN RATIO 0.6 (1.0-1.7); TOTAL BILIRUBIN 1.4 mg/dL (0.2-1.0); TOTAL PROTEIN 7.8 g/dL (6.4-8.2)
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
[2017-01-22] MEDS ORDERED: IPRATRPIUM/ALBUTEROL 0.5/2.5MG 3 ML NEBU. NEB ONE (14:00)
--- NOTE | 2017-01-22 14:23 | EKG ---
[facility] [address] [place] [address] Test Date: 2017-01-22 Test Time: 11:19:12 Pat Name: PHILIP ABDULLAHI Department: Room: Gender: M Payroll Services Analyst: : [id number] Requested By: AMADO BARBOZA Order Number: [id number] Reading MD: Iram Bautista Measurements Intervals [place] Rate: 77 P: 34 [place]: 174 QRS: 28 QRSD: 90 T: 36 QT: 358 QTc: 407 Interpretive Statements SINUS RHYTHM ATRIAL PREMATURE COMPLEX(ES) OTHERWISE NORMAL ECG RI6.01 No previous ECG available for comparison Electronically Signed On 01-26-2017 15:35:44 CDT by Iram Bautista
[2017-01-22] MEDS: IV NORMAL SALINE 1000ML BAG 1,000 ML IV SCH (14:28)
--- NOTE | 2017-01-22 15:14 | ACF ---
Admission Forms Criteria SEPSIS and OTHER FEBRILE ILLNESS, W/O FOCAL INFECTION Clinical Indications for Admission to Inpatient Care ( Place 'X' for any and all applicable criteria): Admission is indicated for ANY ONE of the following (1)(2)(3)(4): [ ] I. Bacteremia [X]II. Suspected or identified specific infection requiring hospitalization (eg, meningitis, endocarditis) [ ]III. Hemodynamic instability [ ]IV. Altered mental status [ ]V. Failure or unavailability of outpatient antimicrobial treatment [ ]. Hypoxemia [ ]VII. Seizures [ ]VIII. High-risk febrile neutropenia [ ]IX. Need for parenteral antibiotic in patient who is likely to abuse vascular access device (eg, injection drug user) [A](7) [ ]X. Temperature greater than 104.9 degrees F (40.5 degrees C) (oral) [ ]XI. Inpatient admission required rather than observation care because of ANY ONE of the following: [ ]1) Specific infection identified that is too severe for outpatient treatment or observation care trial [ ]2) Metabolic disorder (eg, hypoglycemia, hyperglycemia, metabolic acidosis) that is severe or persistent [ ]3) Temperature greater than 103.1 degrees F (39.5 degrees C) ( oral) that is not responsive to observation care treatment [ ]4) IV fluid to replace significant ongoing (eg, for over 24 hours) losses (> 3 L/m2 per day) [ ]5) Supplemental oxygen or respiratory treatments for over 24 hours that is performable only in acute inpatient setting [ ]6) Parenteral nutrition regimen need that must be implemented on inpatient basis [ ]7) Strict or protective (eg, laminar flow) isolation [ ]8) Other condition, treatment or monitoring requiring inpatient admission Extended stay beyond goal length of stay may be needed for(1)(3) [ ]a) Sepsis or septic shock(22) [ ]b) Positive blood cultures [ ]c) Insufficient oral intake [ ]d) High-risk febrile neutropenia(29)(30) [ ]e) Continued fever and clinical instability [ ]f) Clinically active comorbid illness (e.g,heart failure, renal failure , diabetes) The original [employer] content created by [employer] has been revised. The portions of the content which have been revised are identified through the use of italic text or in bold, and [employer] has neither reviewed nor approved the modified material. All other unmodified content is copyright [facility]. Please see references footnoted in the original [facility] edition 2016 Admission Criteria Met?: Yes LEONARDA FERREIRA Jan 22, 2017 15:14
[2017-01-22 16:00] VITALS: BP 106/41
[2017-01-22] MEDS ORDERED: IPRATRPIUM/ALBUTEROL 0.5/2.5MG 3 ML NEBU. NEB SCH (16:00)
[2017-01-22 19:00] VITALS: BP_SYST 106; BP_SYST 110; BP_DIAS 41; BP_DIAS 55
[2017-01-22] MEDS: IPRATRPIUM/ALBUTEROL 0.5/2.5MG 3 ML NEBU. NEB SCH (19:58)
[2017-01-22] MEDS: TAMSULOSIN 0.4 MG CAP.ER.24H. PO SCH (20:55)
[2017-01-22 23:00] VITALS: BP 130/85
[2017-01-23] MEDS: IV NORMAL SALINE 1000ML BAG 1,000 ML IV SCH ×2 (00:38→11:01)
[2017-01-23] MEDS ORDERED: ACETAMINOPHEN 325 MG TABLET. PO PRN (01:45)
[2017-01-23] MEDS ORDERED: CEFTRIAXONE SODIUM 1 GM in IV NORMAL SALINE 50ML 50 ML IV ONE (02:00)
[2017-01-23 03:00] VITALS: BP 115/52
[2017-01-23 03:43] LABS: BASO # 0.1 x10^3/uL (0.0-0.2); BASO % 1 % (0-3); EOS % 0 % (0-3); HEMATOCRIT 27.8 % (39.0-53.0); HEMOGLOBIN 9.2 g/dL (13.0-17.5); LYMPH % 7 % (24-48); MEAN CORPUSCULAR HEMOGLOBIN 28 pg (25-35); MEAN CORPUSCULAR HGB CONC 33 g/dL (31-37); MEAN CORPUSCULAR VOLUME 84 fL (79-100); MONO % 9 % (0-9); NEUT % 84 % (31-73); PLATELET COUNT 405 x10^3/uL (140-400); RED BLOOD COUNT 3.31 x10^6/uL (4.30-5.70); RED CELL DISTRIBUTION WIDTH 14.1 % (11.5-14.5)
[2017-01-23] MEDS: IPRATRPIUM/ALBUTEROL 0.5/2.5MG 3 ML NEBU. NEB SCH ×4 (06:07→19:38)
[2017-01-23 07:00] VITALS: BP 117/71
[2017-01-23] MEDS: MAGNESIUM OXIDE 400 MG TABLET PO SCH (08:17)
[2017-01-23] MEDS: TAMSULOSIN 0.4 MG CAP.ER.24H. PO SCH ×2 (08:17→20:55)
--- NOTE | 2017-01-23 09:18 | PDOC ---
PROGRESS NOTES Subjective Subjective Pt. with sepsis Objective Objective Vital Signs Date Time Temp Pulse Resp B/P Pulse Ox O2 Delivery O2 Flow Rate FiO2 01/23/17 08:19 Room Air 01/23/17 07:00 97.7 96 18 117/71 95 97.7 01/22/17 19:00 3.0 Intake and Output 01/23/17 07:00 Intake Total 1450 ml Output Total 650 ml Balance 800 ml Intake Oral 200 ml IV Total 1250 ml Output Urine Total 650 ml Physical Exam Physical Exam jones in place Assessment Assessment urine clear yellow Cr.-1.4 failed voiding trial will get CT non contrast Consult Gen surg and ID Problems Medical Problems: (1) Sepsis Status: Acute (2) UTI (urinary tract infection) Status: Acute Comment Review of Relevant I have reviewed the following items sammie (where applicable) has been applied. Labs Laboratory Tests Test 01/22/17 11:40 01/22/17 14:05 01/23/17 03:05 White Blood Count 20.7x10^3/uL (4.0-11.0) 15.0x10^3/uL (4.0-11.0) Red Blood Count 3.93x10^6/uL (4.30-5.70) 3.31x10^6/uL (4.30-5.70) Hemoglobin 10.9g/dL (13.0-17.5) 9.2g/dL (13.0-17.5) Hematocrit 32.7% (39.0-53.0) 27.8% (39.0-53.0) Mean Corpuscular Volume 83fL (79-100) 84fL (79-100) Mean Corpuscular Hemoglobin 28pg (25-35) 28pg (25-35) Mean Corpuscular Hemoglobin Concent 33g/dL (31-37) 33g/dL (31-37) Red Cell Distribution Width 14.1% (11.5-14.5) 14.1% (11.5-14.5) Platelet Count 517x10^3/uL (140-400) 405x10^3/uL (140-400) Neutrophils (%) (Auto) 83% (31-73) 84% (31-73) Lymphocytes (%) (Auto) 6% (24-48) 7% (24-48) Monocytes (%) (Auto) 9% (0-9) 9% (0-9) Eosinophils (%) (Auto) 0% (0-3) 0% (0-3) Basophils (%) (Auto) 1% (0-3) 1% (0-3) Neutrophils # (Auto) 17.2x10^3uL (1.8-7.7) 12.5x10^3uL (1.8-7.7) Lymphocytes # (Auto) 1.3x10^3/uL (1.0-4.8) 1.0x10^3/uL (1.0-4.8) Monocytes # (Auto) 1.9x10^3/uL (0.0-1.1) 1.4x10^3/uL (0.0-1.1) Eosinophils # (Auto) 0.0x10^3/uL (0.0-0.7) 0.0x10^3/uL (0.0-0.7) Basophils # (Auto) 0.3x10^3/uL (0.0-0.2) 0.1x10^3/uL (0.0-0.2) Urine Collection Type Unknown Urine Color Idania Urine Clarity Turbid Urine pH 5.5 Urine Specific [place] 1.020 Urine Protein 100mg/dL (NEG-TRACE) Urine Glucose (UA) Negativemg/dL (NEG) Urine Ketones (Stick) Negativemg/dL (NEG) Urine Blood Large (NEG) Urine Nitrite Positive (NEG) Urine Bilirubin Negative (NEG) Urine Urobilinogen Dipstick 0.2mg/dL (0.2 mg/dL) Urine Leukocyte Esterase Large (NEG) Urine RBC >40/HPF (0-2) Urine WBC Tntc/HPF (0-4) Urine Squamous Epithelial Cells Mod/LPF Urine Bacteria Moderate/HPF (0-FEW) Urine Mucus Slight/LPF Sodium Level 129mmol/L (136-145) Potassium Level 4.9mmol/L (3.5-5.1) Chloride Level 92mmol/L (98-107) Carbon Dioxide Level 29mmol/L (21-32) Anion Gap 8 (6-14) Blood Urea Nitrogen 19mg/dL (8-26) Creatinine 1.4mg/dL (0.7-1.3) Estimated GFR (Cockcroft-Gault) 50.7 BUN/Creatinine Ratio 14 (6-20) Glucose Level 100mg/dL (70-99) Calcium Level 9.0mg/dL (8.5-10.1) Total Bilirubin 1.4mg/dL (0.2-1.0) Aspartate Amino Transf (AST/SGOT) 50U/L (15-37) Alanine Aminotransferase (ALT/SGPT) 36U/L (16-63) Alkaline Phosphatase 87U/L (46-116) Total Protein 7.8g/dL (6.4-8.2) Albumin 3.0g/dL (3.4-5.0) Albumin/Globulin Ratio 0.6 (1.0-1.7) Lactic Acid Level 1.5mmol/L (0.4-2.0) Laboratory Tests Test 01/22/17 11:40 01/22/17 14:05 01/23/17 03:05 White Blood Count 20.7x10^3/uL (4.0-11.0) 15.0x10^3/uL (4.0-11.0) Red Blood Count 3.93x10^6/uL (4.30-5.70) 3.31x10^6/uL (4.30-5.70) Hemoglobin 10.9g/dL (13.0-17.5) 9.2g/dL (13.0-17.5) Hematocrit 32.7% (39.0-53.0) 27.8% (39.0-53.0) Mean Corpuscular Volume 83fL (79-100) 84fL (79-100) Mean Corpuscular Hemoglobin 28pg (25-35) 28pg (25-35) Mean Corpuscular Hemoglobin Concent 33g/dL (31-37) 33g/dL (31-37) Red Cell Distribution Width 14.1% (11.5-14.5) 14.1% (11.5-14.5) Platelet Count 517x10^3/uL (140-400) 405x10^3/uL (140-400) Neutrophils (%) (Auto) 83% (31-73) 84% (31-73) Lymphocytes (%) (Auto) 6% (24-48) 7% (24-48) Monocytes (%) (Auto) 9% (0-9) 9% (0-9) Eosinophils (%) (Auto) 0% (0-3) 0% (0-3) Basophils (%) (Auto) 1% (0-3) 1% (0-3) Neutrophils # (Auto) 17.2x10^3uL (1.8-7.7) 12.5x10^3uL (1.8-7.7) Lymphocytes # (Auto) 1.3x10^3/uL (1.0-4.8) 1.0x10^3/uL (1.0-4.8) Monocytes # (Auto) 1.9x10^3/uL (0.0-1.1) 1.4x10^3/uL (0.0-1.1) Eosinophils # (Auto) 0.0x10^3/uL (0.0-0.7) 0.0x10^3/uL (0.0-0.7) Basophils # (Auto) 0.3x10^3/uL (0.0-0.2) 0.1x10^3/uL (0.0-0.2) Urine Collection Type Unknown Urine Color Idania Urine Clarity Turbid Urine pH 5.5 Urine Specific [place] 1.020 Urine Protein 100mg/dL (NEG-TRACE) Urine Glucose (UA) Negativemg/dL (NEG) Urine Ketones (Stick) Negativemg/dL (NEG) Urine Blood Large (NEG) Urine Nitrite Positive (NEG) Urine Bilirubin Negative (NEG) Urine Urobilinogen Dipstick 0.2mg/dL (0.2 mg/dL) Urine Leukocyte Esterase Large (NEG) Urine RBC >40/HPF (0-2) Urine WBC Tntc/HPF (0-4) Urine Squamous Epithelial Cells Mod/LPF Urine Bacteria Moderate/HPF (0-FEW) Urine Mucus Slight/LPF Sodium Level 129mmol/L (136-145) Potassium Level 4.9mmol/L (3.5-5.1) Chloride Level 92mmol/L (98-107) Carbon Dioxide Level 29mmol/L (21-32) Anion Gap 8 (6-14) Blood Urea Nitrogen 19mg/dL (8-26) Creatinine 1.4mg/dL (0.7-1.3) Estimated GFR (Cockcroft-Gault) 50.7 BUN/Creatinine Ratio 14 (6-20) Glucose Level 100mg/dL (70-99) Calcium Level 9.0mg/dL (8.5-10.1) Total Bilirubin 1.4mg/dL (0.2-1.0) Aspartate Amino Transf (AST/SGOT) 50U/L (15-37) Alanine Aminotransferase (ALT/SGPT) 36U/L (16-63) Alkaline Phosphatase 87U/L (46-116) Total Protein 7.8g/dL (6.4-8.2) Albumin 3.0g/dL (3.4-5.0) Albumin/Globulin Ratio 0.6 (1.0-1.7) Lactic Acid Level 1.5mmol/L (0.4-2.0) Medications Current Medications Sodium Chloride (Iv Sodium Chloride 0.9% 1000ml Bag) 1,000 ml @ 1,000 mls/hr Q1H IV Last administered on 01/22/17 12:30; Start 01/22/17 at 12:20; Stop at 13:19; Status DC Albuterol/ Ipratropium 3 ml 3 ml 1X ONCE NEB Last administered on 01/22/17 13 :57; Start 01/22/17 at 14:00; Stop 01/22/17 at 14:01; Status DC Levofloxacin/ Dextrose 100 ml @ 100 mls/hr 1X ONCE IV Last administered on 14:29; Start 01/22/17 at 14:00; Stop 01/22/17 at 14:59; Status DC Sodium Chloride (Iv Sodium Chloride 0.9% 1000ml Bag) 1,000 ml @ 100 mls/hr Q10H IV Last administered on 01/23/17 00:38; Start 01/22/17 at 14:15; Stop at 14:14 Albuterol/ Ipratropium (Duoneb) 3 ml RTQID NEB Last administered on 01/22/17 16:11; Start 01/22/17 at 16:00; Stop 01/22/17 at 17:42; Status DC Albuterol/ Ipratropium (Duoneb) 3 ml RTQID NEB Last administered on 01/23/17 06:07; Start 01/22/17 at 21:00 Tamsulosin HCl (Flomax) 0.4 mg BID PO Last administered on 01/23/17 08:17; Start 01/22/17 at 21:00 Magnesium Oxide 400 mg 400 mg DAILY PO Last administered on 01/23/17 08:17; Start 01/23/17 at 09:00 Ceftriaxone Sodium/Sodium Chloride (Rocephin/Iv Sodium Chloride 0.9% 50ml) 50 ml @ 100 mls/hr Q24H IV ; Start 01/24/17 at 06:00 Acetaminophen 650 mg 650 mg PRN Q4HRS PRN PO MILD PAIN Last administered on 01:59; Start 01/23/17 at 01:45 Ceftriaxone Sodium/Sodium Chloride (Rocephin/Iv Sodium Chloride 0.9% 50ml) 50 ml @ 100 mls/hr ONCE ONCE IV Last administered on 01/23/17 02:00; Start at 02:00; Stop 01/23/17 at 02:30; Status DC Active Scripts Active Flomax (Tamsulosin Hcl) 0.4 Mg Cap.er.24h 0.4 Mg PO BID Lisinopril 5 Mg Tablet 5 Mg PO DAILY Metoprolol Tartrate 25 Mg Tablet 25 Mg PO BID Reported Aspirin 81 Mg Tab.chew 1 Tab PO DAILY Vitamin D3 (Cholecalciferol (Vitamin D3)) 1,000 Unit Tablet 1 Tab PO DAILY Magnesium (Magnesium Oxide) 250 Mg Tablet 250 Mg PO DAILY Stool Softener Tablet (Sennosides/Docusate Sodium) 1 Each Tablet 1 Each PO Meloxicam 7.5 Mg Tablet 1 Tab PO DAILY Tizanidine Hcl 4 Mg Tablet 1 Tab PO QHS Duoneb 0.5-3(2.5) Mg/3 Ml (Albuterol/Ipratropium) 3 Ml Ampul.neb 3 Ml NEB QID Vitals/I & O Vital Sign - Last 24 Hours 01/22/17 01/22/17 01/22/17 01/22/17 11:32 12:37 13:30 13:57 Temp 98.0 98.0 Pulse 79 80 104 Resp 16 16 16 B/P 98/57 103/59 131/63 Pulse Ox 96 94 98 92 O2 Delivery Room Air Room Air Room Air Room Air 01/22/17 01/22/17 01/22/17 01/22/17 14:30 15:30 16:00 16:00 Temp 97.0 97.0 97.0 97.0 Pulse 100 102 105 105 Resp 16 16 20 B/P 108/58 108/52 106/41 106/41 Pulse Ox 98 94 93 93 O2 Delivery Room Air Room Air Room Air 01/22/17 01/22/17 01/22/17 01/22/17 16:11 16:36 19:00 19:00 Temp 97.0 95.0 97.0 95.0 Pulse 105 83 Resp 18 B/P 106/41 110/55 Pulse Ox 93 O2 Delivery Room Air Room Air Room Air O2 Flow Rate 3.0 01/22/17 01/22/17 01/22/17 01/23/17 19:59 20:00 23:00 03:00 Temp 99.3 99.0 99.3 99.0 Pulse 90 89 Resp 18 18 B/P 130/85 115/52 Pulse Ox 94 90 95 O2 Delivery Room Air Room Air Room Air Room Air 01/23/17 01/23/17 01/23/17 06:08 07:00 08:19 Temp 97.7 97.7 Pulse 96 Resp 18 B/P 117/71 Pulse Ox 94 95 O2 Delivery Room Air Room Air Room Air Intake and Output 01/22/17 01/22/17 01/23/17 15:00 23:00 07:00 Intake Total 1150 ml 200 ml 100 ml Output Total 400 ml 250 ml Balance 1150 ml -200 ml -150 ml KAYLA SALAZAR MD Jan 23, 2017 09:18
[2017-01-23] MEDS ORDERED: IOHEXOL 240 MG/ML 50ML VIAL. PO ONE (09:30)
[2017-01-23] MEDS ORDERED: CONTRAST GIVEN MC PRN (09:45)
--- NOTE | 2017-01-23 10:00 | PDOC ---
Infectious Disease Note ROS ROS GEN: Denies fevers, chills, sweats HEENT: Denies blurred vision, sore throat CV: Denies chest pain RESP: Denies shortness of air, cough GI: Denies n/v/d NEURO: Denies confusion, dizziness MSK: Denies weakness, joint pain/swelling Vital Sign Vital Signs Vital Signs Date Time Temp Pulse Resp B/P Pulse Ox O2 Delivery O2 Flow Rate FiO2 01/23/17 08:19 Room Air 01/23/17 07:00 97.7 96 18 117/71 95 97.7 01/22/17 19:00 3.0 Physical Exam PHYSICAL EXAM GENERAL: NAD, Alert HEENT: PERRL, OC/OP NECK: Supple, no JVD, no LN LUNGS: Clear HEART: S1S2, no gallop, no murmur ABD: Soft, NT, no organomegaly, no rebound EXT: No edema, no cyanosis CLINICAL DOCUMENTATION SPECIALIST: Alert, oriented x 3, no focal neurologic deficit SKIN: No rash IV: ok Labs Lab Laboratory Tests Test 01/22/17 11:40 01/22/17 14:05 01/23/17 03:05 White Blood Count 20.7x10^3/uL (4.0-11.0) 15.0x10^3/uL (4.0-11.0) Red Blood Count 3.93x10^6/uL (4.30-5.70) 3.31x10^6/uL (4.30-5.70) Hemoglobin 10.9g/dL (13.0-17.5) 9.2g/dL (13.0-17.5) Hematocrit 32.7% (39.0-53.0) 27.8% (39.0-53.0) Mean Corpuscular Volume 83fL (79-100) 84fL (79-100) Mean Corpuscular Hemoglobin 28pg (25-35) 28pg (25-35) Mean Corpuscular Hemoglobin Concent 33g/dL (31-37) 33g/dL (31-37) Red Cell Distribution Width 14.1% (11.5-14.5) 14.1% (11.5-14.5) Platelet Count 517x10^3/uL (140-400) 405x10^3/uL (140-400) Neutrophils (%) (Auto) 83% (31-73) 84% (31-73) Lymphocytes (%) (Auto) 6% (24-48) 7% (24-48) Monocytes (%) (Auto) 9% (0-9) 9% (0-9) Eosinophils (%) (Auto) 0% (0-3) 0% (0-3) Basophils (%) (Auto) 1% (0-3) 1% (0-3) Neutrophils # (Auto) 17.2x10^3uL (1.8-7.7) 12.5x10^3uL (1.8-7.7) Lymphocytes # (Auto) 1.3x10^3/uL (1.0-4.8) 1.0x10^3/uL (1.0-4.8) Monocytes # (Auto) 1.9x10^3/uL (0.0-1.1) 1.4x10^3/uL (0.0-1.1) Eosinophils # (Auto) 0.0x10^3/uL (0.0-0.7) 0.0x10^3/uL (0.0-0.7) Basophils # (Auto) 0.3x10^3/uL (0.0-0.2) 0.1x10^3/uL (0.0-0.2) Urine Collection Type Unknown Urine Color Idania Urine Clarity Turbid Urine pH 5.5 Urine Specific [place] 1.020 Urine Protein 100mg/dL (NEG-TRACE) Urine Glucose (UA) Negativemg/dL (NEG) Urine Ketones (Stick) Negativemg/dL (NEG) Urine Blood Large (NEG) Urine Nitrite Positive (NEG) Urine Bilirubin Negative (NEG) Urine Urobilinogen Dipstick 0.2mg/dL (0.2 mg/dL) Urine Leukocyte Esterase Large (NEG) Urine RBC >40/HPF (0-2) Urine WBC Tntc/HPF (0-4) Urine Squamous Epithelial Cells Mod/LPF Urine Bacteria Moderate/HPF (0-FEW) Urine Mucus Slight/LPF Sodium Level 129mmol/L (136-145) Potassium Level 4.9mmol/L (3.5-5.1) Chloride Level 92mmol/L (98-107) Carbon Dioxide Level 29mmol/L (21-32) Anion Gap 8 (6-14) Blood Urea Nitrogen 19mg/dL (8-26) Creatinine 1.4mg/dL (0.7-1.3) Estimated GFR (Cockcroft-Gault) 50.7 BUN/Creatinine Ratio 14 (6-20) Glucose Level 100mg/dL (70-99) Calcium Level 9.0mg/dL (8.5-10.1) Total Bilirubin 1.4mg/dL (0.2-1.0) Aspartate Amino Transf (AST/SGOT) 50U/L (15-37) Alanine Aminotransferase (ALT/SGPT) 36U/L (16-63) Alkaline Phosphatase 87U/L (46-116) Total Protein 7.8g/dL (6.4-8.2) Albumin 3.0g/dL (3.4-5.0) Albumin/Globulin Ratio 0.6 (1.0-1.7) Lactic Acid Level 1.5mmol/L (0.4-2.0) Objective Assessment ? sepsis - hypotension/Leukocytosis/RANDA ? UTI- POA s/p urinary retention and jones removal/replacement 01/21 Leukocytosis RANDA Plan Plan of Care Change to Zosyn BMP/Procalcitonin add on F/u labs and cults F/u CT scan D/w Dr. Higgins Thank you # [id number] TALA JUAREZ MD Jan 23, 2017 09:59
[2017-01-23 10:10] LABS: CALCIUM 8.3 mg/dL (8.5-10.1); CREATININE 0.9 mg/dL (0.7-1.3); GFR 84.4; POTASSIUM 4.1 mmol/L (3.5-5.1)
--- NOTE | 2017-01-23 10:44 | PDOC2 ---
EDILMA PRYOR Shelby CHILD DEVELOPMENT PROFESSOR 01/23/17 1044: CONSULT Date of Consult Date of Consult DATE: 01/23/17 TIME: 10:38 Reason for Consult Reason for Consult: s/p herlinda deutsch Referring Physician Referring Physician: Dr Higgins Identification/Chief Complaint Chief Complaint hypotension Source Source: Chart review, Patient History of Present Illness Reason for Visit: Admitted after found to have hypotension, lightheadedness, had sepsis findings in ER Herlinda deutsch with Dr chavez 01/10/17, normal IOC, denies any abdominal pain, n/v, difficulty eating Multiple issues last admission including urinary retention, cardiac arrhythmia Past Medical History Cardiovascular: No pertinent hx Pulmonary: Other GI: No pertinent hx Heme/Onc: No pertinent hx Hepatobiliary: No pertinent hx Psych: No pertinent hx Musculoskeletal: Stiffness Rheumatologic: No pertinent hx Infectious disease: No pertinent hx Renal/: No pertinent hx Endocrine: No pertinent hx Past Surgical History Past Surgical History: Cholecystectomy, Tonsillectomy Family History Family History: No Significant Social History Quit ALCOHOL: rare Drugs: None Lives: with Family Current Problem List Problem List Problems Medical Problems: (1) Sepsis Status: Acute (2) UTI (urinary tract infection) Status: Acute Current Medications Current Medications Current Medications Sodium Chloride (Iv Sodium Chloride 0.9% 1000ml Bag) 1,000 ml @ 1,000 mls/hr Q1H IV Last administered on 01/22/17 12:30; Start 01/22/17 at 12:20; Stop at 13:19; Status DC Albuterol/ Ipratropium 3 ml 3 ml 1X ONCE NEB Last administered on 01/22/17 13 :57; Start 01/22/17 at 14:00; Stop 01/22/17 at 14:01; Status DC Levofloxacin/ Dextrose 100 ml @ 100 mls/hr 1X ONCE IV Last administered on 14:29; Start 01/22/17 at 14:00; Stop 01/22/17 at 14:59; Status DC Sodium Chloride (Iv Sodium Chloride 0.9% 1000ml Bag) 1,000 ml @ 100 mls/hr Q10H IV Last administered on 01/23/17 00:38; Start 01/22/17 at 14:15; Stop at 14:14 Albuterol/ Ipratropium (Duoneb) 3 ml RTQID NEB Last administered on 01/22/17 16:11; Start 01/22/17 at 16:00; Stop 01/22/17 at 17:42; Status DC Albuterol/ Ipratropium (Duoneb) 3 ml RTQID NEB Last administered on 01/23/17 06:07; Start 01/22/17 at 21:00 Tamsulosin HCl (Flomax) 0.4 mg BID PO Last administered on 01/23/17 08:17; Start 01/22/17 at 21:00 Magnesium Oxide 400 mg 400 mg DAILY PO Last administered on 01/23/17 08:17; Start 01/23/17 at 09:00 Ceftriaxone Sodium/Sodium Chloride (Rocephin/Iv Sodium Chloride 0.9% 50ml) 50 ml @ 100 mls/hr Q24H IV ; Start 01/24/17 at 06:00; Stop 01/24/17 at 06:00; Status DC Acetaminophen 650 mg 650 mg PRN Q4HRS PRN PO MILD PAIN Last administered on 01:59; Start 01/23/17 at 01:45 Ceftriaxone Sodium/Sodium Chloride (Rocephin/Iv Sodium Chloride 0.9% 50ml) 50 ml @ 100 mls/hr ONCE ONCE IV Last administered on 01/23/17 02:00; Start at 02:00; Stop 01/23/17 at 02:30; Status DC Iohexol (Omnipaque 240 Mg/ml) 30 ml 1X ONCE PO ; Start 01/23/17 at 09:30; Stop 01/23/17 at 09:31; Status DC Info 1 each 1 each PRN DAILY PRN MC SEE COMMENTS; Start 01/23/17 at 09:45; Stop 01/25/17 at 09:44 Piperacillin Sod/ Tazobactam Sod/ Sodium Chloride (Zosyn/Iv Sodium Chloride 0.9 % 50ml) 50 ml @ 100 mls/hr Q6HRS IV ; Start 01/23/17 at 11:00 Active Scripts Active Flomax (Tamsulosin Hcl) 0.4 Mg Cap.er.24h 0.4 Mg PO BID Lisinopril 5 Mg Tablet 5 Mg PO DAILY Metoprolol Tartrate 25 Mg Tablet 25 Mg PO BID Reported Aspirin 81 Mg Tab.chew 1 Tab PO DAILY Vitamin D3 (Cholecalciferol (Vitamin D3)) 1,000 Unit Tablet 1 Tab PO DAILY Magnesium (Magnesium Oxide) 250 Mg Tablet 250 Mg PO DAILY Stool Softener Tablet (Sennosides/Docusate Sodium) 1 Each Tablet 1 Each PO Meloxicam 7.5 Mg Tablet 1 Tab PO DAILY Tizanidine Hcl 4 Mg Tablet 1 Tab PO QHS Duoneb 0.5-3(2.5) Mg/3 Ml (Albuterol/Ipratropium) 3 Ml Ampul.neb 3 Ml NEB QID Allergies Allergies: Coded Allergies: No Known Drug Allergies (Unverified , 01/10/17) ROS General: No: Chills, Other (fevers) PSYCHOLOGICAL ROS: No: Anxiety, Depression Eyes: No Blurry vision, No Decreased vision HEENT: No: Heacaches, Sore Throat Hematological and Lymphatic: No: Bleeding Problems, Blood Clots Respiratory: No: Cough, Shortness of breath Cardiovascular: No Chest Pain, No Palpitations Gastrointestinal: Yes Other (see hpi) Genitourinary: YES Hematuria, YES Retention Neurological: Yes Impaired Coord/balance, No Numbness/Tingling Skin: No Pruritus, No Rash Physical Exam General: Alert, Oriented X3, Cooperative, No acute distress HEENT: PERRLA, Mucous membr. moist/pink Lungs: Clear to auscultation, Normal air movement Heart: Regular rate, Normal S1, Normal S2 Abdomen: Soft, No tenderness Extremities: No clubbing, No cyanosis Skin: No rashes, No breakdown Neuro: Normal speech, Sensation intact Psych/Mental Status: Mental status NL, Mood NL MUSCULOSKELETAL: No deformity, No swelling Vitals VITALS Vital Signs Date Time Temp Pulse Resp B/P Pulse Ox O2 Delivery O2 Flow Rate FiO2 01/23/17 08:19 Room Air 01/23/17 07:00 97.7 96 18 117/71 95 97.7 01/22/17 19:00 3.0 Labs Labs Laboratory Tests Test 01/22/17 11:40 01/22/17 14:05 01/23/17 03:05 White Blood Count 20.7x10^3/uL (4.0-11.0) 15.0x10^3/uL (4.0-11.0) Red Blood Count 3.93x10^6/uL (4.30-5.70) 3.31x10^6/uL (4.30-5.70) Hemoglobin 10.9g/dL (13.0-17.5) 9.2g/dL (13.0-17.5) Hematocrit 32.7% (39.0-53.0) 27.8% (39.0-53.0) Mean Corpuscular Volume 83fL (79-100) 84fL (79-100) Mean Corpuscular Hemoglobin 28pg (25-35) 28pg (25-35) Mean Corpuscular Hemoglobin Concent 33g/dL (31-37) 33g/dL (31-37) Red Cell Distribution Width 14.1% (11.5-14.5) 14.1% (11.5-14.5) Platelet Count 517x10^3/uL (140-400) 405x10^3/uL (140-400) Neutrophils (%) (Auto) 83% (31-73) 84% (31-73) Lymphocytes (%) (Auto) 6% (24-48) 7% (24-48) Monocytes (%) (Auto) 9% (0-9) 9% (0-9) Eosinophils (%) (Auto) 0% (0-3) 0% (0-3) Basophils (%) (Auto) 1% (0-3) 1% (0-3) Neutrophils # (Auto) 17.2x10^3uL (1.8-7.7) 12.5x10^3uL (1.8-7.7) Lymphocytes # (Auto) 1.3x10^3/uL (1.0-4.8) 1.0x10^3/uL (1.0-4.8) Monocytes # (Auto) 1.9x10^3/uL (0.0-1.1) 1.4x10^3/uL (0.0-1.1) Eosinophils # (Auto) 0.0x10^3/uL (0.0-0.7) 0.0x10^3/uL (0.0-0.7) Basophils # (Auto) 0.3x10^3/uL (0.0-0.2) 0.1x10^3/uL (0.0-0.2) Urine Collection Type Unknown Urine Color Idania Urine Clarity Turbid Urine pH 5.5 Urine Specific [place] 1.020 Urine Protein 100mg/dL (NEG-TRACE) Urine Glucose (UA) Negativemg/dL (NEG) Urine Ketones (Stick) Negativemg/dL (NEG) Urine Blood Large (NEG) Urine Nitrite Positive (NEG) Urine Bilirubin Negative (NEG) Urine Urobilinogen Dipstick 0.2mg/dL (0.2 mg/dL) Urine Leukocyte Esterase Large (NEG) Urine RBC >40/HPF (0-2) Urine WBC Tntc/HPF (0-4) Urine Squamous Epithelial Cells Mod/LPF Urine Bacteria Moderate/HPF (0-FEW) Urine Mucus Slight/LPF Sodium Level 129mmol/L (136-145) 132mmol/L (136-145) Potassium Level 4.9mmol/L (3.5-5.1) 4.1mmol/L (3.5-5.1) Chloride Level 92mmol/L (98-107) 98mmol/L (98-107) Carbon Dioxide Level 29mmol/L (21-32) 25mmol/L (21-32) Anion Gap 8 (6-14) 9 (6-14) Blood Urea Nitrogen 19mg/dL (8-26) 12mg/dL (8-26) Creatinine 1.4mg/dL (0.7-1.3) 0.9mg/dL (0.7-1.3) Estimated GFR (Cockcroft-Gault) 50.7 84.4 BUN/Creatinine Ratio 14 (6-20) Glucose Level 100mg/dL (70-99) 112mg/dL (70-99) Calcium Level 9.0mg/dL (8.5-10.1) 8.3mg/dL (8.5-10.1) Total Bilirubin 1.4mg/dL (0.2-1.0) Aspartate Amino Transf (AST/SGOT) 50U/L (15-37) Alanine Aminotransferase (ALT/SGPT) 36U/L (16-63) Alkaline Phosphatase 87U/L (46-116) Total Protein 7.8g/dL (6.4-8.2) Albumin 3.0g/dL (3.4-5.0) Albumin/Globulin Ratio 0.6 (1.0-1.7) Lactic Acid Level 1.5mmol/L (0.4-2.0) Laboratory Tests Test 01/22/17 11:40 01/22/17 14:05 01/23/17 03:05 White Blood Count 20.7x10^3/uL (4.0-11.0) 15.0x10^3/uL (4.0-11.0) Red Blood Count 3.93x10^6/uL (4.30-5.70) 3.31x10^6/uL (4.30-5.70) Hemoglobin 10.9g/dL (13.0-17.5) 9.2g/dL (13.0-17.5) Hematocrit 32.7% (39.0-53.0) 27.8% (39.0-53.0) Mean Corpuscular Volume 83fL (79-100) 84fL (79-100) Mean Corpuscular Hemoglobin 28pg (25-35) 28pg (25-35) Mean Corpuscular Hemoglobin Concent 33g/dL (31-37) 33g/dL (31-37) Red Cell Distribution Width 14.1% (11.5-14.5) 14.1% (11.5-14.5) Platelet Count 517x10^3/uL (140-400) 405x10^3/uL (140-400) Neutrophils (%) (Auto) 83% (31-73) 84% (31-73) Lymphocytes (%) (Auto) 6% (24-48) 7% (24-48) Monocytes (%) (Auto) 9% (0-9) 9% (0-9) Eosinophils (%) (Auto) 0% (0-3) 0% (0-3) Basophils (%) (Auto) 1% (0-3) 1% (0-3) Neutrophils # (Auto) 17.2x10^3uL (1.8-7.7) 12.5x10^3uL (1.8-7.7) Lymphocytes # (Auto) 1.3x10^3/uL (1.0-4.8) 1.0x10^3/uL (1.0-4.8) Monocytes # (Auto) 1.9x10^3/uL (0.0-1.1) 1.4x10^3/uL (0.0-1.1) Eosinophils # (Auto) 0.0x10^3/uL (0.0-0.7) 0.0x10^3/uL (0.0-0.7) Basophils # (Auto) 0.3x10^3/uL (0.0-0.2) 0.1x10^3/uL (0.0-0.2) Urine Collection Type Unknown Urine Color Idania Urine Clarity Turbid Urine pH 5.5 Urine Specific [place] 1.020 Urine Protein 100mg/dL (NEG-TRACE) Urine Glucose (UA) Negativemg/dL (NEG) Urine Ketones (Stick) Negativemg/dL (NEG) Urine Blood Large (NEG) Urine Nitrite Positive (NEG) Urine Bilirubin Negative (NEG) Urine Urobilinogen Dipstick 0.2mg/dL (0.2 mg/dL) Urine Leukocyte Esterase Large (NEG) Urine RBC >40/HPF (0-2) Urine WBC Tntc/HPF (0-4) Urine Squamous Epithelial Cells Mod/LPF Urine Bacteria Moderate/HPF (0-FEW) Urine Mucus Slight/LPF Sodium Level 129mmol/L (136-145) 132mmol/L (136-145) Potassium Level 4.9mmol/L (3.5-5.1) 4.1mmol/L (3.5-5.1) Chloride Level 92mmol/L (98-107) 98mmol/L (98-107) Carbon Dioxide Level 29mmol/L (21-32) 25mmol/L (21-32) Anion Gap 8 (6-14) 9 (6-14) Blood Urea Nitrogen 19mg/dL (8-26) 12mg/dL (8-26) Creatinine 1.4mg/dL (0.7-1.3) 0.9mg/dL (0.7-1.3) Estimated GFR (Cockcroft-Gault) 50.7 84.4 BUN/Creatinine Ratio 14 (6-20) Glucose Level 100mg/dL (70-99) 112mg/dL (70-99) Calcium Level 9.0mg/dL (8.5-10.1) 8.3mg/dL (8.5-10.1) Total Bilirubin 1.4mg/dL (0.2-1.0) Aspartate Amino Transf (AST/SGOT) 50U/L (15-37) Alanine Aminotransferase (ALT/SGPT) 36U/L (16-63) Alkaline Phosphatase 87U/L (46-116) Total Protein 7.8g/dL (6.4-8.2) Albumin 3.0g/dL (3.4-5.0) Albumin/Globulin Ratio 0.6 (1.0-1.7) Lactic Acid Level 1.5mmol/L (0.4-2.0) Assessment/Plan Assessment/Plan leukocytosis, sepsis on admission hypotension hyponatremia RANDA, cr 1.4 t bili 1.4, on discharge bili was 1.7 urinary retention, indwelling jones abdominal exam benign--CT planned, will FU on results ASCENCION CHAVEZ MD 01/23/17 1215: CONSULT Allergies Allergies: Coded Allergies: No Known Drug Allergies (Unverified , 01/10/17) Assessment/Plan Assessment/Plan Patient seen and examined by me. Sitting comfortably in a chair. Denies any abdominal pain or nausea. CT scan shows fluid collection in the gallbladder fossa without inflammation. Likely seroma, normal postop finding. Elevated TBili likely from dehydration. Urinary issues per urology will follow along. Agree with Julián's assessment and plan. EDILMA PRYOR APRN Jan 23, 2017 10:44 ASCENCION CHAVEZ MD Jan 23, 2017 12:15
[2017-01-23 11:00] VITALS: BP 119/66
[2017-01-23 11:36] LABS: PROCALCITONIN 0.95 ng/mL (0.00-0.10)
--- NOTE | 2017-01-23 11:41 | RAD ---
Indication Sepsis. Assess for underlying occult infection. . Axial images through the abdomen and pelvis were obtained. Oral contrast was administered. IV contrast was not. Note is made of a previous examination 01/09/2017. Note is made of the cholecystectomy procedure performed January 10, 2017 There is some minimal volume loss at the right lung base likely reflecting atelectasis. A definite consolidated pneumonia at either lung base is not seen. Ayoub catheter is noted in the urinary bladder. The liver appears unremarkable. Fluid collection is noted in the gallbladder fossa similar to slightly larger than on the examination 01/14/2017. The finding may represent a hematoma or seroma. Underlying infection, abscess, again is not entirely excluded. The pancreas adrenal glands and kidneys appear normal. Significant central or retroperitoneal adenopathy is not seen. The pelvis is unremarkable with regards to any acute finding. Diverticular disease, most pronounced in the sigmoid colon is noted. IMPRESSION: Fluid collection measuring approximately 7.8 x 4.6 cm in the gallbladder fossa is noted similar to minimally larger than on the examination 01/14/2017. It may represent a seroma or hematoma. Abscess is not entirely excluded. PQRS Compliance Statement: One or more of the following individualized dose reduction techniques were utilized for this examination: 1. Automated exposure control 2. Adjustment of the mA and/or kV according to patient size 3. Use of iterative reconstruction technique
[2017-01-23] MEDS: PIPERACILLIN/TAZOBACTAM 3.375 GM in IV NORMAL SALINE 50ML 50 ML IV SCH ×2 (12:02→18:32)
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
[2017-01-23 15:00] VITALS: BP 129/71
[2017-01-23 18:59] LABS: ALBUMIN 2.5 g/dL (3.4-5.0); ALBUMIN/GLOBULIN RATIO 0.6 (1.0-1.7); CALCIUM 8.5 mg/dL (8.5-10.1); CREATININE 0.9 mg/dL (0.7-1.3); GFR 84.4; POTASSIUM 3.7 mmol/L (3.5-5.1); TOTAL BILIRUBIN 0.5 mg/dL (0.2-1.0)
[2017-01-23 19:00] VITALS: BP 138/69
[2017-01-23 22:29] VITALS: BP 139/72
[2017-01-24] MEDS: PIPERACILLIN/TAZOBACTAM 3.375 GM in IV NORMAL SALINE 50ML 50 ML IV SCH ×4 (00:09→17:21)
--- NOTE | 2017-01-24 01:55 | CONS ---
DATE OF CONSULTATION: 01/23/2017 PATIENT'S ROOM: 654. HISTORY OF PRESENT ILLNESS: The patient is a very pleasant 67-year-old white male who was admitted with sepsis. The patient had failed a voiding trial in the past week and therefore, he did have the Ayoub catheter replaced. The patient was feeling poorly, so he was seen in his primary care physician's office yesterday morning, found to be hypotensive and admitted to the hospital with an elevated white count of 20.7, now down to 15.0. Creatinine on admission was 1.4. The patient has a Ayoub catheter to gravity drainage. Urine in the they Ayoub had come back as greater than 40 red cells, too numerous to count white cells, moderate bacteria, nitrite positive, but it was from a catheterized specimen. The patient has been on Flomax. He has never had any urologic operations. Testes are descended bilaterally. Phallus is within normal limits. He has Ayoub catheter to gravity drainage and the urine is grossly clear, yellow, urine output 1200 mL since yesterday. The patient had a recent cholecystectomy also earlier this month by . ____. PLAN: The plan will be to get a CT abdomen and pelvis without contrast right now to rule out any intraabdominal processes and also will consult General Surgery and ID for the patient's sepsis, rule out any other sources and then proceed accordingly. I certainly appreciate being allowed to participate in this patient's care. KAYLA SALAZAR MD DR: KATRINA/demetrio JOB#: [id number] / [id number]
--- NOTE | 2017-01-24 02:20 | CONS ---
DATE OF CONSULTATION: 01/23/2017 LOCATION: The patient's room 654. REQUESTING PHYSICIAN: Dr. Higgins. REASON FOR CONSULTATION: Sepsis. HISTORY OF PRESENT ILLNESS: The patient is a pleasant 67-year-old gentleman recently admitted to [facility] for cholecystitis and an omental mass. On 01/10/2017, he underwent laparoscopic cholecystectomy and intraoperative Doppler cholangiogram with omental biopsy. Prior to discharge, he developed a little shortness of air and some weakness and had persistent urinary retention. He was subsequently discharged home with a catheter in place. He did not take any antimicrobials, did discharge per his report. He followed up with Urology on the and had this Ayoub removed, but then had complications with ongoing retention and subsequently had a Ayoub replaced later that afternoon. Yesterday at home, he apparently had developed some hypotension, per report, his diastolic was as low as 37. He had sweats and chills and felt weak. At that time, he was brought to [facility], had a white count of 20.7. Creatinine was 1.4. Urinalysis was obtained, had moderate bacteria with also moderate amount of squamous, but too numerous to count white blood cells, greater than 40 rbc's, positive nitrite, large leukocyte esterase. He has not had any imaging performed. He was admitted to the hospital. He was given one dose of levofloxacin and started on Rocephin as well. Currently, he is lying in bed. He feels tired. Denies any gross headaches, sinus tissue, sore throat or cough. He states the chills have improved a little bit. Denies any nausea, vomiting, diarrhea, no cramps or gross constipation, no falls or trauma. PAST MEDICAL HISTORY: Positive for COPD with emphysema, hypertension, osteoarthritis of the knees, neuropathy, BPH as well as the acute cholecystitis. History of urinary retention and also a right arm nerve palsy. PAST SURGICAL HISTORY: Positive for partial pneumonectomy and kneecap removal as well as the above-mentioned cholecystectomy. REVIEW OF SYSTEMS: Otherwise negative except for mentioned above. ALLERGIES: No known drug allergies. SOCIAL HISTORY: He is a former smoker. He is . No alcohol. FAMILY HISTORY: Mother at age 24 with complications of surgery. Father had prostate cancer. CURRENT MEDICATIONS: Include Rocephin. He did receive a dose of levofloxacin. He is on Tylenol, albuterol, Atrovent, Flomax. Other meds are available and reviewed in the chart. PHYSICAL EXAMINATION: VITAL SIGNS: T-max has been 99.3, currently is 97.7, pulse 96, respirations 18, blood pressure 117/71, satting 95% on room air, blood pressure on arrival 98/57. CONSTITUTIONAL: He is lying in bed. He is cooperative. He is in no acute distress, but he does look tired. He is thin. HEENT: Pupils are equal and reactive with normal conjunctivae. Oral cavity, pharynx is clear. NECK: Supple, no JVD. LUNGS: Decreased at bases. HEART: S1, S2. ABDOMEN: Soft, nontender, nondistended, positive bowel sounds. Ayoub is in place. EXTREMITIES: Without clubbing or cyanosis. No gross edema. SKIN: Warm to touch without signs of rash. NEUROLOGIC: He moved all extremities. PSYCHIATRIC: affect was somewhat flat. IV sites are clean. LABORATORY DATA: Today, white count 15, hemoglobin 9.2, platelets of 405 with 84% neutrophils. Creatinine was 1.4, glucose of 100. Total bilirubin ____, AST 50. Urinalysis reviewed in history of present illness. There is no imaging. IMPRESSION: 1. Questionable sepsis with hypotension, leukocytosis and acute kidney injury. 2. Questionable urinary tract infection present on admission, status post urinary retention and Ayoub removal and replacement as mentioned above. 3. Leukocytosis. 4. Acute kidney injury. RECOMMENDATIONS: For now, given his recent hospital exposure, we will change to Zosyn. ____ Enterococcus somewhat better. Obtain a BNP and procalcitonin this morning. Follow up labs, cultures, CT scan has been ordered by Dr. Higgins and will follow up on those results. I did discuss with Dr. Higgins. Thank you for allowing me to participate in the patient's care. If you have any questions, please do not hesitate to contact me. TALA JUAREZ MD DR: NANCY/demetrio JOB#: [id number] / [id number]
[2017-01-24 03:00] VITALS: BP 136/65
[2017-01-24] MEDS ORDERED: CEFTRIAXONE SODIUM 1 GM in IV NORMAL SALINE 50ML 50 ML IV SCH (06:00)
[2017-01-24 06:02] LABS: BASO # 0.1 x10^3/uL (0.0-0.2); BASO % 1 % (0-3); EOS % 1 % (0-3); HEMATOCRIT 27.9 % (39.0-53.0); HEMOGLOBIN 9.3 g/dL (13.0-17.5); LYMPH # 0.8 x10^3/uL (1.0-4.8); LYMPH % 8 % (24-48); MEAN CORPUSCULAR HEMOGLOBIN 28 pg (25-35); MEAN CORPUSCULAR HGB CONC 33 g/dL (31-37); MEAN CORPUSCULAR VOLUME 84 fL (79-100); MONO % 7 % (0-9); NEUT % 84 % (31-73); PLATELET COUNT 453 x10^3/uL (140-400); RED BLOOD COUNT 3.33 x10^6/uL (4.30-5.70); RED CELL DISTRIBUTION WIDTH 14.1 % (11.5-14.5); WHITE BLOOD COUNT 10.3 x10^3/uL (4.0-11.0)
[2017-01-24 07:00] VITALS: BP 136/73
[2017-01-24] MEDS: MAGNESIUM OXIDE 400 MG TABLET PO SCH (08:07)
[2017-01-24] MEDS: TAMSULOSIN 0.4 MG CAP.ER.24H. PO SCH ×2 (08:08→20:29)
--- NOTE | 2017-01-24 08:08 | PDOC ---
Infectious Disease Note Subjective Subjective Better. + BM and appetite improving ROS ROS GEN: Denies fevers, chills, sweats HEENT: Denies blurred vision, sore throat CV: Denies chest pain RESP: Denies shortness of air, cough GI: Denies n/v/d NEURO: Denies confusion, dizziness MSK: Denies weakness, joint pain/swelling Vital Sign Vital Signs Vital Signs Date Time Temp Pulse Resp B/P Pulse Ox O2 Delivery O2 Flow Rate FiO2 01/24/17 03:00 99.0 92 19 136/65 95 Room Air 99.0 Physical Exam PHYSICAL EXAM GENERAL: NAD, Alert, in chair HEENT: PERRL, OC/OP - clear NECK: Supple, no JVD, no LN LUNGS: Clear HEART: S1S2, no gallop, no murmur ABD: Soft, NT, no organomegaly, no rebound EXT: No edema, no cyanosis BOLT LABELER: Alert, oriented x 3, weakness right UE SKIN: No rash IV: ok Labs Lab Laboratory Tests Test 01/23/17 18:20 01/24/17 05:30 Sodium Level 135mmol/L (136-145) Potassium Level 3.7mmol/L (3.5-5.1) Chloride Level 99mmol/L (98-107) Carbon Dioxide Level 28mmol/L (21-32) Anion Gap 8 (6-14) Blood Urea Nitrogen 11mg/dL (8-26) Creatinine 0.9mg/dL (0.7-1.3) Estimated GFR (Cockcroft-Gault) 84.4 BUN/Creatinine Ratio 12 (6-20) Glucose Level 133mg/dL (70-99) Calcium Level 8.5mg/dL (8.5-10.1) Total Bilirubin 0.5mg/dL (0.2-1.0) Aspartate Amino Transf (AST/SGOT) 43U/L (15-37) Alanine Aminotransferase (ALT/SGPT) 37U/L (16-63) Alkaline Phosphatase 80U/L (46-116) Total Protein 7.0g/dL (6.4-8.2) Albumin 2.5g/dL (3.4-5.0) Albumin/Globulin Ratio 0.6 (1.0-1.7) White Blood Count 10.3x10^3/uL (4.0-11.0) Red Blood Count 3.33x10^6/uL (4.30-5.70) Hemoglobin 9.3g/dL (13.0-17.5) Hematocrit 27.9% (39.0-53.0) Mean Corpuscular Volume 84fL (79-100) Mean Corpuscular Hemoglobin 28pg (25-35) Mean Corpuscular Hemoglobin Concent 33g/dL (31-37) Red Cell Distribution Width 14.1% (11.5-14.5) Platelet Count 453x10^3/uL (140-400) Neutrophils (%) (Auto) 84% (31-73) Lymphocytes (%) (Auto) 8% (24-48) Monocytes (%) (Auto) 7% (0-9) Eosinophils (%) (Auto) 1% (0-3) Basophils (%) (Auto) 1% (0-3) Neutrophils # (Auto) 8.7x10^3uL (1.8-7.7) Lymphocytes # (Auto) 0.8x10^3/uL (1.0-4.8) Monocytes # (Auto) 0.7x10^3/uL (0.0-1.1) Eosinophils # (Auto) 0.1x10^3/uL (0.0-0.7) Basophils # (Auto) 0.1x10^3/uL (0.0-0.2) Micro CT IMPRESSION: Fluid collection measuring approximately 7.8 x 4.6 cm in the gallbladder fossa is noted similar to minimally larger than on the examination 01/14/2017. It may represent a seroma or hematoma. Abscess is not entirely excluded. Objective Assessment ? sepsis - hypotension/Leukocytosis/RANDA - better GNR UTI- POA s/p urinary retention and jones removal/replacement 01/21 Leukocytosis RANDA Fluid collection in GB fossa. ? seroma. S/p Lap la nena 01/10 Plan Plan of Care Cont Zosyn F/u labs and cults Await surgical follow - up TALA JUAREZ MD Jan 24, 2017 08:08
--- NOTE | 2017-01-24 08:33 | PDOC ---
EDILMA PRYOR [employer] 01/24/17 8:32am: SURGICAL PROGRESS NOTE Subjective tolerating diet no abdominal pain no nausea Vital Signs Vital Signs Date Time Temp Pulse Resp B/P Pulse Ox O2 Delivery O2 Flow Rate FiO2 01/24/17 08:00 Room Air 01/24/17 03:00 99.0 92 19 136/65 95 99.0 I&O Intake and Output 01/24/17 07:00 Intake Total 2440 ml Output Total 3300 ml Balance -860 ml Intake Oral 2440 ml Output Urine Total 3300 ml General: Alert, Oriented X3, Cooperative, No acute distress Abdomen: Soft, No tenderness Labs Laboratory Tests Test 01/22/17 11:40 01/22/17 14:05 01/23/17 03:05 01/23/17 18:20 White Blood Count 20.7x10^3/uL (4.0-11.0) 15.0x10^3/uL (4.0-11.0) Red Blood Count 3.93x10^6/uL (4.30-5.70) 3.31x10^6/uL (4.30-5.70) Hemoglobin 10.9g/dL (13.0-17.5) 9.2g/dL (13.0-17.5) Hematocrit 32.7% (39.0-53.0) 27.8% (39.0-53.0) Mean Corpuscular Volume 83fL (79-100) 84fL (79-100) Mean Corpuscular Hemoglobin 28pg (25-35) 28pg (25-35) Mean Corpuscular Hemoglobin Concent 33g/dL (31-37) 33g/dL (31-37) Red Cell Distribution Width 14.1% (11.5-14.5) 14.1% (11.5-14.5) Platelet Count 517x10^3/uL (140-400) 405x10^3/uL (140-400) Neutrophils (%) (Auto) 83% (31-73) 84% (31-73) Lymphocytes (%) (Auto) 6% (24-48) 7% (24-48) Monocytes (%) (Auto) 9% (0-9) 9% (0-9) Eosinophils (%) (Auto) 0% (0-3) 0% (0-3) Basophils (%) (Auto) 1% (0-3) 1% (0-3) Neutrophils # (Auto) 17.2x10^3uL (1.8-7.7) 12.5x10^3uL (1.8-7.7) Lymphocytes # (Auto) 1.3x10^3/uL (1.0-4.8) 1.0x10^3/uL (1.0-4.8) Monocytes # (Auto) 1.9x10^3/uL (0.0-1.1) 1.4x10^3/uL (0.0-1.1) Eosinophils # (Auto) 0.0x10^3/uL (0.0-0.7) 0.0x10^3/uL (0.0-0.7) Basophils # (Auto) 0.3x10^3/uL (0.0-0.2) 0.1x10^3/uL (0.0-0.2) Urine Collection Type Unknown Urine Color Idania Urine Clarity Turbid Urine pH 5.5 Urine Specific [place] 1.020 Urine Protein 100mg/dL (NEG-TRACE) Urine Glucose (UA) Negativemg/dL (NEG) Urine Ketones (Stick) Negativemg/dL (NEG) Urine Blood Large (NEG) Urine Nitrite Positive (NEG) Urine Bilirubin Negative (NEG) Urine Urobilinogen Dipstick 0.2mg/dL (0.2 mg/dL) Urine Leukocyte Esterase Large (NEG) Urine RBC >40/HPF (0-2) Urine WBC Tntc/HPF (0-4) Urine Squamous Epithelial Cells Mod/LPF Urine Bacteria Moderate/HPF (0-FEW) Urine Mucus Slight/LPF Sodium Level 129mmol/L (136-145) 132mmol/L (136-145) 135mmol/L (136-145) Potassium Level 4.9mmol/L (3.5-5.1) 4.1mmol/L (3.5-5.1) 3.7mmol/L (3.5-5.1) Chloride Level 92mmol/L (98-107) 98mmol/L (98-107) 99mmol/L (98-107) Carbon Dioxide Level 29mmol/L (21-32) 25mmol/L (21-32) 28mmol/L (21-32) Anion Gap 8 (6-14) 9 (6-14) 8 (6-14) Blood Urea Nitrogen 19mg/dL (8-26) 12mg/dL (8-26) 11mg/dL (8-26) Creatinine 1.4mg/dL (0.7-1.3) 0.9mg/dL (0.7-1.3) 0.9mg/dL (0.7-1.3) Estimated GFR (Cockcroft-Gault) 50.7 84.4 84.4 BUN/Creatinine Ratio 14 (6-20) 12 (6-20) Glucose Level 100mg/dL (70-99) 112mg/dL (70-99) 133mg/dL (70-99) Calcium Level 9.0mg/dL (8.5-10.1) 8.3mg/dL (8.5-10.1) 8.5mg/dL (8.5-10.1) Total Bilirubin 1.4mg/dL (0.2-1.0) 0.5mg/dL (0.2-1.0) Aspartate Amino Transf (AST/SGOT) 50U/L (15-37) 43U/L (15-37) Alanine Aminotransferase (ALT/SGPT) 36U/L (16-63) 37U/L (16-63) Alkaline Phosphatase 87U/L (46-116) 80U/L (46-116) Total Protein 7.8g/dL (6.4-8.2) 7.0g/dL (6.4-8.2) Albumin 3.0g/dL (3.4-5.0) 2.5g/dL (3.4-5.0) Albumin/Globulin Ratio 0.6 (1.0-1.7) 0.6 (1.0-1.7) Lactic Acid Level 1.5mmol/L (0.4-2.0) Procalcitonin 0.95ng/mL (0.00-0.10) Test 01/24/17 05:30 White Blood Count 10.3x10^3/uL (4.0-11.0) Red Blood Count 3.33x10^6/uL (4.30-5.70) Hemoglobin 9.3g/dL (13.0-17.5) Hematocrit 27.9% (39.0-53.0) Mean Corpuscular Volume 84fL (79-100) Mean Corpuscular Hemoglobin 28pg (25-35) Mean Corpuscular Hemoglobin Concent 33g/dL (31-37) Red Cell Distribution Width 14.1% (11.5-14.5) Platelet Count 453x10^3/uL (140-400) Neutrophils (%) (Auto) 84% (31-73) Lymphocytes (%) (Auto) 8% (24-48) Monocytes (%) (Auto) 7% (0-9) Eosinophils (%) (Auto) 1% (0-3) Basophils (%) (Auto) 1% (0-3) Neutrophils # (Auto) 8.7x10^3uL (1.8-7.7) Lymphocytes # (Auto) 0.8x10^3/uL (1.0-4.8) Monocytes # (Auto) 0.7x10^3/uL (0.0-1.1) Eosinophils # (Auto) 0.1x10^3/uL (0.0-0.7) Basophils # (Auto) 0.1x10^3/uL (0.0-0.2) Laboratory Tests Test 01/23/17 18:20 01/24/17 05:30 Sodium Level 135mmol/L (136-145) Potassium Level 3.7mmol/L (3.5-5.1) Chloride Level 99mmol/L (98-107) Carbon Dioxide Level 28mmol/L (21-32) Anion Gap 8 (6-14) Blood Urea Nitrogen 11mg/dL (8-26) Creatinine 0.9mg/dL (0.7-1.3) Estimated GFR (Cockcroft-Gault) 84.4 BUN/Creatinine Ratio 12 (6-20) Glucose Level 133mg/dL (70-99) Calcium Level 8.5mg/dL (8.5-10.1) Total Bilirubin 0.5mg/dL (0.2-1.0) Aspartate Amino Transf (AST/SGOT) 43U/L (15-37) Alanine Aminotransferase (ALT/SGPT) 37U/L (16-63) Alkaline Phosphatase 80U/L (46-116) Total Protein 7.0g/dL (6.4-8.2) Albumin 2.5g/dL (3.4-5.0) Albumin/Globulin Ratio 0.6 (1.0-1.7) White Blood Count 10.3x10^3/uL (4.0-11.0) Red Blood Count 3.33x10^6/uL (4.30-5.70) Hemoglobin 9.3g/dL (13.0-17.5) Hematocrit 27.9% (39.0-53.0) Mean Corpuscular Volume 84fL (79-100) Mean Corpuscular Hemoglobin 28pg (25-35) Mean Corpuscular Hemoglobin Concent 33g/dL (31-37) Red Cell Distribution Width 14.1% (11.5-14.5) Platelet Count 453x10^3/uL (140-400) Neutrophils (%) (Auto) 84% (31-73) Lymphocytes (%) (Auto) 8% (24-48) Monocytes (%) (Auto) 7% (0-9) Eosinophils (%) (Auto) 1% (0-3) Basophils (%) (Auto) 1% (0-3) Neutrophils # (Auto) 8.7x10^3uL (1.8-7.7) Lymphocytes # (Auto) 0.8x10^3/uL (1.0-4.8) Monocytes # (Auto) 0.7x10^3/uL (0.0-1.1) Eosinophils # (Auto) 0.1x10^3/uL (0.0-0.7) Basophils # (Auto) 0.1x10^3/uL (0.0-0.2) Problem List Problems Medical Problems: (1) Sepsis Status: Acute (2) UTI (urinary tract infection) Status: Acute Assessment/Plan no acute problems post cholecystectomy, postop seroma will sign off, please FU in clinic 1-2 weeks Problems: ASCENCION SCOTT MD 01/24/17 9:07am: SURGICAL PROGRESS NOTE Assessment/Plan Agree with Julián's assessment and plan. Problems: EDILMA PRYOR [employer] Jan 24, 2017 8:32 am ASCENCION SCOTT MD Jan 24, 2017 9:07 am
--- NOTE | 2017-01-24 08:54 | PDOC ---
PROGRESS NOTES Subjective Subjective Pt. feeling better Objective Objective Vital Signs Date Time Temp Pulse Resp B/P Pulse Ox O2 Delivery O2 Flow Rate FiO2 01/24/17 08:00 Room Air 01/24/17 07:00 97.8 87 18 136/73 95 97.8 01/22/17 19:00 3.0 Intake and Output 01/24/17 07:00 Intake Total 2440 ml Output Total 3300 ml Balance -860 ml Intake Oral 2440 ml Output Urine Total 3300 ml Physical Exam Physical Exam jones in place urine clear Assessment Assessment PSA in 2014 was 2.6 keep jones stay on flomax bid add proscar f/u urology office in 3-4 weeks for voiding trial Abs per ID Problems Medical Problems: (1) Sepsis Status: Acute (2) UTI (urinary tract infection) Status: Acute Comment Review of Relevant I have reviewed the following items sammie (where applicable) has been applied. Labs Laboratory Tests Test 01/22/17 11:40 01/22/17 14:05 01/23/17 03:05 01/23/17 18:20 White Blood Count 20.7x10^3/uL (4.0-11.0) 15.0x10^3/uL (4.0-11.0) Red Blood Count 3.93x10^6/uL (4.30-5.70) 3.31x10^6/uL (4.30-5.70) Hemoglobin 10.9g/dL (13.0-17.5) 9.2g/dL (13.0-17.5) Hematocrit 32.7% (39.0-53.0) 27.8% (39.0-53.0) Mean Corpuscular Volume 83fL (79-100) 84fL (79-100) Mean Corpuscular Hemoglobin 28pg (25-35) 28pg (25-35) Mean Corpuscular Hemoglobin Concent 33g/dL (31-37) 33g/dL (31-37) Red Cell Distribution Width 14.1% (11.5-14.5) 14.1% (11.5-14.5) Platelet Count 517x10^3/uL (140-400) 405x10^3/uL (140-400) Neutrophils (%) (Auto) 83% (31-73) 84% (31-73) Lymphocytes (%) (Auto) 6% (24-48) 7% (24-48) Monocytes (%) (Auto) 9% (0-9) 9% (0-9) Eosinophils (%) (Auto) 0% (0-3) 0% (0-3) Basophils (%) (Auto) 1% (0-3) 1% (0-3) Neutrophils # (Auto) 17.2x10^3uL (1.8-7.7) 12.5x10^3uL (1.8-7.7) Lymphocytes # (Auto) 1.3x10^3/uL (1.0-4.8) 1.0x10^3/uL (1.0-4.8) Monocytes # (Auto) 1.9x10^3/uL (0.0-1.1) 1.4x10^3/uL (0.0-1.1) Eosinophils # (Auto) 0.0x10^3/uL (0.0-0.7) 0.0x10^3/uL (0.0-0.7) Basophils # (Auto) 0.3x10^3/uL (0.0-0.2) 0.1x10^3/uL (0.0-0.2) Urine Collection Type Unknown Urine Color Idania Urine Clarity Turbid Urine pH 5.5 Urine Specific [place] 1.020 Urine Protein 100mg/dL (NEG-TRACE) Urine Glucose (UA) Negativemg/dL (NEG) Urine Ketones (Stick) Negativemg/dL (NEG) Urine Blood Large (NEG) Urine Nitrite Positive (NEG) Urine Bilirubin Negative (NEG) Urine Urobilinogen Dipstick 0.2mg/dL (0.2 mg/dL) Urine Leukocyte Esterase Large (NEG) Urine RBC >40/HPF (0-2) Urine WBC Tntc/HPF (0-4) Urine Squamous Epithelial Cells Mod/LPF Urine Bacteria Moderate/HPF (0-FEW) Urine Mucus Slight/LPF Sodium Level 129mmol/L (136-145) 132mmol/L (136-145) 135mmol/L (136-145) Potassium Level 4.9mmol/L (3.5-5.1) 4.1mmol/L (3.5-5.1) 3.7mmol/L (3.5-5.1) Chloride Level 92mmol/L (98-107) 98mmol/L (98-107) 99mmol/L (98-107) Carbon Dioxide Level 29mmol/L (21-32) 25mmol/L (21-32) 28mmol/L (21-32) Anion Gap 8 (6-14) 9 (6-14) 8 (6-14) Blood Urea Nitrogen 19mg/dL (8-26) 12mg/dL (8-26) 11mg/dL (8-26) Creatinine 1.4mg/dL (0.7-1.3) 0.9mg/dL (0.7-1.3) 0.9mg/dL (0.7-1.3) Estimated GFR (Cockcroft-Gault) 50.7 84.4 84.4 BUN/Creatinine Ratio 14 (6-20) 12 (6-20) Glucose Level 100mg/dL (70-99) 112mg/dL (70-99) 133mg/dL (70-99) Calcium Level 9.0mg/dL (8.5-10.1) 8.3mg/dL (8.5-10.1) 8.5mg/dL (8.5-10.1) Total Bilirubin 1.4mg/dL (0.2-1.0) 0.5mg/dL (0.2-1.0) Aspartate Amino Transf (AST/SGOT) 50U/L (15-37) 43U/L (15-37) Alanine Aminotransferase (ALT/SGPT) 36U/L (16-63) 37U/L (16-63) Alkaline Phosphatase 87U/L (46-116) 80U/L (46-116) Total Protein 7.8g/dL (6.4-8.2) 7.0g/dL (6.4-8.2) Albumin 3.0g/dL (3.4-5.0) 2.5g/dL (3.4-5.0) Albumin/Globulin Ratio 0.6 (1.0-1.7) 0.6 (1.0-1.7) Lactic Acid Level 1.5mmol/L (0.4-2.0) Procalcitonin 0.95ng/mL (0.00-0.10) Test 01/24/17 05:30 White Blood Count 10.3x10^3/uL (4.0-11.0) Red Blood Count 3.33x10^6/uL (4.30-5.70) Hemoglobin 9.3g/dL (13.0-17.5) Hematocrit 27.9% (39.0-53.0) Mean Corpuscular Volume 84fL (79-100) Mean Corpuscular Hemoglobin 28pg (25-35) Mean Corpuscular Hemoglobin Concent 33g/dL (31-37) Red Cell Distribution Width 14.1% (11.5-14.5) Platelet Count 453x10^3/uL (140-400) Neutrophils (%) (Auto) 84% (31-73) Lymphocytes (%) (Auto) 8% (24-48) Monocytes (%) (Auto) 7% (0-9) Eosinophils (%) (Auto) 1% (0-3) Basophils (%) (Auto) 1% (0-3) Neutrophils # (Auto) 8.7x10^3uL (1.8-7.7) Lymphocytes # (Auto) 0.8x10^3/uL (1.0-4.8) Monocytes # (Auto) 0.7x10^3/uL (0.0-1.1) Eosinophils # (Auto) 0.1x10^3/uL (0.0-0.7) Basophils # (Auto) 0.1x10^3/uL (0.0-0.2) Laboratory Tests Test 01/23/17 18:20 01/24/17 05:30 Sodium Level 135mmol/L (136-145) Potassium Level 3.7mmol/L (3.5-5.1) Chloride Level 99mmol/L (98-107) Carbon Dioxide Level 28mmol/L (21-32) Anion Gap 8 (6-14) Blood Urea Nitrogen 11mg/dL (8-26) Creatinine 0.9mg/dL (0.7-1.3) Estimated GFR (Cockcroft-Gault) 84.4 BUN/Creatinine Ratio 12 (6-20) Glucose Level 133mg/dL (70-99) Calcium Level 8.5mg/dL (8.5-10.1) Total Bilirubin 0.5mg/dL (0.2-1.0) Aspartate Amino Transf (AST/SGOT) 43U/L (15-37) Alanine Aminotransferase (ALT/SGPT) 37U/L (16-63) Alkaline Phosphatase 80U/L (46-116) Total Protein 7.0g/dL (6.4-8.2) Albumin 2.5g/dL (3.4-5.0) Albumin/Globulin Ratio 0.6 (1.0-1.7) White Blood Count 10.3x10^3/uL (4.0-11.0) Red Blood Count 3.33x10^6/uL (4.30-5.70) Hemoglobin 9.3g/dL (13.0-17.5) Hematocrit 27.9% (39.0-53.0) Mean Corpuscular Volume 84fL (79-100) Mean Corpuscular Hemoglobin 28pg (25-35) Mean Corpuscular Hemoglobin Concent 33g/dL (31-37) Red Cell Distribution Width 14.1% (11.5-14.5) Platelet Count 453x10^3/uL (140-400) Neutrophils (%) (Auto) 84% (31-73) Lymphocytes (%) (Auto) 8% (24-48) Monocytes (%) (Auto) 7% (0-9) Eosinophils (%) (Auto) 1% (0-3) Basophils (%) (Auto) 1% (0-3) Neutrophils # (Auto) 8.7x10^3uL (1.8-7.7) Lymphocytes # (Auto) 0.8x10^3/uL (1.0-4.8) Monocytes # (Auto) 0.7x10^3/uL (0.0-1.1) Eosinophils # (Auto) 0.1x10^3/uL (0.0-0.7) Basophils # (Auto) 0.1x10^3/uL (0.0-0.2) Microbiology 01/22/17 Urine Culture - Preliminary, Resulted 01/22/17 Urine Culture Result 1 (RYLAN) - Preliminary, Resulted Medications Current Medications Sodium Chloride (Iv Sodium Chloride 0.9% 1000ml Bag) 1,000 ml @ 1,000 mls/hr Q1H IV Last administered on 01/22/17 12:30; Start 01/22/17 at 12:20; Stop at 13:19; Status DC Albuterol/ Ipratropium 3 ml 3 ml 1X ONCE NEB Last administered on 01/22/17 13 :57; Start 01/22/17 at 14:00; Stop 01/22/17 at 14:01; Status DC Levofloxacin/ Dextrose 100 ml @ 100 mls/hr 1X ONCE IV Last administered on 14:29; Start 01/22/17 at 14:00; Stop 01/22/17 at 14:59; Status DC Sodium Chloride (Iv Sodium Chloride 0.9% 1000ml Bag) 1,000 ml @ 100 mls/hr Q10H IV Last administered on 01/23/17 11:01; Start 01/22/17 at 14:15; Stop at 14:14; Status DC Albuterol/ Ipratropium (Duoneb) 3 ml RTQID NEB Last administered on 01/22/17 16:11; Start 01/22/17 at 16:00; Stop 01/22/17 at 17:42; Status DC Albuterol/ Ipratropium (Duoneb) 3 ml RTQID NEB Last administered on 01/23/17 19:38; Start 01/22/17 at 21:00 Tamsulosin HCl (Flomax) 0.4 mg BID PO Last administered on 01/24/17 08:08; Start 01/22/17 at 21:00 Magnesium Oxide 400 mg 400 mg DAILY PO Last administered on 01/24/17 08:07; Start 01/23/17 at 09:00 Ceftriaxone Sodium/Sodium Chloride (Rocephin/Iv Sodium Chloride 0.9% 50ml) 50 ml @ 100 mls/hr Q24H IV ; Start 01/24/17 at 06:00; Stop 01/24/17 at 06:00; Status DC Acetaminophen 650 mg 650 mg PRN Q4HRS PRN PO MILD PAIN Last administered on 01:59; Start 01/23/17 at 01:45 Ceftriaxone Sodium/Sodium Chloride (Rocephin/Iv Sodium Chloride 0.9% 50ml) 50 ml @ 100 mls/hr ONCE ONCE IV Last administered on 01/23/17 02:00; Start at 02:00; Stop 01/23/17 at 02:30; Status DC Iohexol (Omnipaque 240 Mg/ml) 30 ml 1X ONCE PO Last administered on 01/23/17 09:30; Start 01/23/17 at 09:30; Stop 01/23/17 at 09:31; Status DC Info 1 each 1 each PRN DAILY PRN MC SEE COMMENTS; Start 01/23/17 at 09:45; Stop 01/25/17 at 09:44 Piperacillin Sod/ Tazobactam Sod/ Sodium Chloride (Zosyn/Iv Sodium Chloride 0.9 % 50ml) 50 ml @ 100 mls/hr Q6HRS IV Last administered on 01/24/17 05:43; Start 01/23/17 at 11:00 Active Scripts Active Flomax (Tamsulosin Hcl) 0.4 Mg Cap.er.24h 0.4 Mg PO BID Lisinopril 5 Mg Tablet 5 Mg PO DAILY Metoprolol Tartrate 25 Mg Tablet 25 Mg PO BID Reported Aspirin 81 Mg Tab.chew 1 Tab PO DAILY Vitamin D3 (Cholecalciferol (Vitamin D3)) 1,000 Unit Tablet 1 Tab PO DAILY Magnesium (Magnesium Oxide) 250 Mg Tablet 250 Mg PO DAILY Stool Softener Tablet (Sennosides/Docusate Sodium) 1 Each Tablet 1 Each PO Meloxicam 7.5 Mg Tablet 1 Tab PO DAILY Tizanidine Hcl 4 Mg Tablet 1 Tab PO QHS Duoneb 0.5-3(2.5) Mg/3 Ml (Albuterol/Ipratropium) 3 Ml Ampul.neb 3 Ml NEB QID Vitals/I & O Vital Sign - Last 24 Hours 01/23/17 01/23/17 01/23/17 01/23/17 11:00 12:13 15:00 15:54 Temp 97.8 97.6 97.8 97.6 Pulse 86 88 Resp 18 18 B/P 119/66 129/71 Pulse Ox 95 96 98 O2 Delivery Room Air Room Air Room Air Room Air 01/23/17 01/23/17 01/23/17 01/23/17 19:00 19:39 20:00 22:29 Temp 98.6 98.8 98.6 98.8 Pulse 71 98 Resp 19 B/P 138/69 139/72 Pulse Ox 97 98 96 O2 Delivery Room Air Room Air Room Air Room Air 01/24/17 01/24/17 01/24/17 03:00 07:00 08:00 Temp 99.0 97.8 99.0 97.8 Pulse 92 87 Resp 18 B/P 136/65 136/73 Pulse Ox 95 95 O2 Delivery Room Air Room Air Room Air Intake and Output 01/23/17 01/23/17 01/24/17 15:00 23:00 07:00 Intake Total 420 ml 1020 ml 1000 ml Output Total 1200 ml 1000 ml 1100 ml Balance -780 ml 20 ml -100 ml KAYLA SALAZAR MD Jan 24, 2017 08:53
[2017-01-24] MEDS: IPRATRPIUM/ALBUTEROL 0.5/2.5MG 3 ML NEBU. NEB SCH ×4 (09:21→19:47)
[2017-01-24 11:13] VITALS: BP 132/68
[2017-01-24] MEDS: FINASTERIDE 5 MG TABLET. PO SCH (11:23)
[2017-01-24 15:24] VITALS: BP 125/67
--- NOTE | 2017-01-24 17:44 | PDOC ---
PROGRESS NOTES Subjective Subjective Patient feeling better. Urine culture growing gram-negative rods ID and sensitivities pending. Episode of SVT noted. Objective Objective Vital Signs Date Time Temp Pulse Resp B/P Pulse Ox O2 Delivery O2 Flow Rate FiO2 01/24/17 16:42 Room Air 01/24/17 15:24 98.3 94 18 125/67 96 98.3 01/22/17 19:00 3.0 Intake and Output 01/24/17 06:59 Intake Total 2440 ml Output Total 3300 ml Balance -860 ml Intake Oral 2440 ml Output Urine Total 3300 ml Physical Exam Abdomen: Normal bowel sounds Heart: Regular rate Extremities: No edema General: Alert Lungs: Clear to auscultation Assessment Assessment Problems Medical Problems: (1) Sepsis Status: Acute (2) UTI (urinary tract infection) Status: Acute 1. Sepsis. 2. Hypotension consistent with septic shock-improved 3. Urinary retention. 4. Urinary tract infection. 5. Chronic obstructive pulmonary disease 6. SVT Plan Plan of Care Await ID and sensitivities of urine infection. Switch to by mouth medication when okay with infectious disease Outpatient evaluation of SVT once stable. Restart beta blockers once blood pressure is improved Comment Review of Relevant I have reviewed the following items sammie (where applicable) has been applied. Labs Laboratory Tests Test 01/23/17 03:05 01/23/17 18:20 01/24/17 05:30 White Blood Count 15.0x10^3/uL (4.0-11.0) 10.3x10^3/uL (4.0-11.0) Red Blood Count 3.31x10^6/uL (4.30-5.70) 3.33x10^6/uL (4.30-5.70) Hemoglobin 9.2g/dL (13.0-17.5) 9.3g/dL (13.0-17.5) Hematocrit 27.8% (39.0-53.0) 27.9% (39.0-53.0) Mean Corpuscular Volume 84fL (79-100) 84fL (79-100) Mean Corpuscular Hemoglobin 28pg (25-35) 28pg (25-35) Mean Corpuscular Hemoglobin Concent 33g/dL (31-37) 33g/dL (31-37) Red Cell Distribution Width 14.1% (11.5-14.5) 14.1% (11.5-14.5) Platelet Count 405x10^3/uL (140-400) 453x10^3/uL (140-400) Neutrophils (%) (Auto) 84% (31-73) 84% (31-73) Lymphocytes (%) (Auto) 7% (24-48) 8% (24-48) Monocytes (%) (Auto) 9% (0-9) 7% (0-9) Eosinophils (%) (Auto) 0% (0-3) 1% (0-3) Basophils (%) (Auto) 1% (0-3) 1% (0-3) Neutrophils # (Auto) 12.5x10^3uL (1.8-7.7) 8.7x10^3uL (1.8-7.7) Lymphocytes # (Auto) 1.0x10^3/uL (1.0-4.8) 0.8x10^3/uL (1.0-4.8) Monocytes # (Auto) 1.4x10^3/uL (0.0-1.1) 0.7x10^3/uL (0.0-1.1) Eosinophils # (Auto) 0.0x10^3/uL (0.0-0.7) 0.1x10^3/uL (0.0-0.7) Basophils # (Auto) 0.1x10^3/uL (0.0-0.2) 0.1x10^3/uL (0.0-0.2) Sodium Level 132mmol/L (136-145) 135mmol/L (136-145) Potassium Level 4.1mmol/L (3.5-5.1) 3.7mmol/L (3.5-5.1) Chloride Level 98mmol/L (98-107) 99mmol/L (98-107) Carbon Dioxide Level 25mmol/L (21-32) 28mmol/L (21-32) Anion Gap 9 (6-14) 8 (6-14) Blood Urea Nitrogen 12mg/dL (8-26) 11mg/dL (8-26) Creatinine 0.9mg/dL (0.7-1.3) 0.9mg/dL (0.7-1.3) Estimated GFR (Cockcroft-Gault) 84.4 84.4 Glucose Level 112mg/dL (70-99) 133mg/dL (70-99) Calcium Level 8.3mg/dL (8.5-10.1) 8.5mg/dL (8.5-10.1) Procalcitonin 0.95ng/mL (0.00-0.10) BUN/Creatinine Ratio 12 (6-20) Total Bilirubin 0.5mg/dL (0.2-1.0) Aspartate Amino Transf (AST/SGOT) 43U/L (15-37) Alanine Aminotransferase (ALT/SGPT) 37U/L (16-63) Alkaline Phosphatase 80U/L (46-116) Total Protein 7.0g/dL (6.4-8.2) Albumin 2.5g/dL (3.4-5.0) Albumin/Globulin Ratio 0.6 (1.0-1.7) Laboratory Tests Test 01/23/17 18:20 01/24/17 05:30 Sodium Level 135mmol/L (136-145) Potassium Level 3.7mmol/L (3.5-5.1) Chloride Level 99mmol/L (98-107) Carbon Dioxide Level 28mmol/L (21-32) Anion Gap 8 (6-14) Blood Urea Nitrogen 11mg/dL (8-26) Creatinine 0.9mg/dL (0.7-1.3) Estimated GFR (Cockcroft-Gault) 84.4 BUN/Creatinine Ratio 12 (6-20) Glucose Level 133mg/dL (70-99) Calcium Level 8.5mg/dL (8.5-10.1) Total Bilirubin 0.5mg/dL (0.2-1.0) Aspartate Amino Transf (AST/SGOT) 43U/L (15-37) Alanine Aminotransferase (ALT/SGPT) 37U/L (16-63) Alkaline Phosphatase 80U/L (46-116) Total Protein 7.0g/dL (6.4-8.2) Albumin 2.5g/dL (3.4-5.0) Albumin/Globulin Ratio 0.6 (1.0-1.7) White Blood Count 10.3x10^3/uL (4.0-11.0) Red Blood Count 3.33x10^6/uL (4.30-5.70) Hemoglobin 9.3g/dL (13.0-17.5) Hematocrit 27.9% (39.0-53.0) Mean Corpuscular Volume 84fL (79-100) Mean Corpuscular Hemoglobin 28pg (25-35) Mean Corpuscular Hemoglobin Concent 33g/dL (31-37) Red Cell Distribution Width 14.1% (11.5-14.5) Platelet Count 453x10^3/uL (140-400) Neutrophils (%) (Auto) 84% (31-73) Lymphocytes (%) (Auto) 8% (24-48) Monocytes (%) (Auto) 7% (0-9) Eosinophils (%) (Auto) 1% (0-3) Basophils (%) (Auto) 1% (0-3) Neutrophils # (Auto) 8.7x10^3uL (1.8-7.7) Lymphocytes # (Auto) 0.8x10^3/uL (1.0-4.8) Monocytes # (Auto) 0.7x10^3/uL (0.0-1.1) Eosinophils # (Auto) 0.1x10^3/uL (0.0-0.7) Basophils # (Auto) 0.1x10^3/uL (0.0-0.2) Microbiology 01/23/17 Urine Culture - Preliminary, Resulted 01/23/17 Urine Culture Result 1 (RYLAN) - Preliminary, Resulted Medications Current Medications Sodium Chloride (Iv Sodium Chloride 0.9% 1000ml Bag) 1,000 ml @ 1,000 mls/hr Q1H IV Last administered on 01/22/17 12:30; Start 01/22/17 at 12:20; Stop at 13:19; Status DC Albuterol/ Ipratropium 3 ml 3 ml 1X ONCE NEB Last administered on 01/22/17 13 :57; Start 01/22/17 at 14:00; Stop 01/22/17 at 14:01; Status DC Levofloxacin/ Dextrose 100 ml @ 100 mls/hr 1X ONCE IV Last administered on 14:29; Start 01/22/17 at 14:00; Stop 01/22/17 at 14:59; Status DC Sodium Chloride (Iv Sodium Chloride 0.9% 1000ml Bag) 1,000 ml @ 100 mls/hr Q10H IV Last administered on 01/23/17 11:01; Start 01/22/17 at 14:15; Stop at 14:14; Status DC Albuterol/ Ipratropium (Duoneb) 3 ml RTQID NEB Last administered on 01/22/17 16:11; Start 01/22/17 at 16:00; Stop 01/22/17 at 17:42; Status DC Albuterol/ Ipratropium (Duoneb) 3 ml RTQID NEB Last administered on 01/24/17 16:42; Start 01/22/17 at 21:00 Tamsulosin HCl (Flomax) 0.4 mg BID PO Last administered on 01/24/17 08:08; Start 01/22/17 at 21:00 Magnesium Oxide 400 mg 400 mg DAILY PO Last administered on 01/24/17 08:07; Start 01/23/17 at 09:00 Ceftriaxone Sodium/Sodium Chloride (Rocephin/Iv Sodium Chloride 0.9% 50ml) 50 ml @ 100 mls/hr Q24H IV ; Start 01/24/17 at 06:00; Stop 01/24/17 at 06:00; Status DC Acetaminophen 650 mg 650 mg PRN Q4HRS PRN PO MILD PAIN Last administered on 01:59; Start 01/23/17 at 01:45 Ceftriaxone Sodium/Sodium Chloride (Rocephin/Iv Sodium Chloride 0.9% 50ml) 50 ml @ 100 mls/hr ONCE ONCE IV Last administered on 01/23/17 02:00; Start at 02:00; Stop 01/23/17 at 02:30; Status DC Iohexol (Omnipaque 240 Mg/ml) 30 ml 1X ONCE PO Last administered on 01/23/17 09:30; Start 01/23/17 at 09:30; Stop 01/23/17 at 09:31; Status DC Info 1 each 1 each PRN DAILY PRN MC SEE COMMENTS; Start 01/23/17 at 09:45; Stop 01/25/17 at 09:44 Piperacillin Sod/ Tazobactam Sod/ Sodium Chloride (Zosyn/Iv Sodium Chloride 0.9 % 50ml) 50 ml @ 100 mls/hr Q6HRS IV Last administered on 01/24/17 17:21; Start 01/23/17 at 11:00 Finasteride (Proscar) 5 mg DAILY PO Last administered on 01/24/17 11:23; Start 01/24/17 at 09:00 Active Scripts Active Flomax (Tamsulosin Hcl) 0.4 Mg Cap.er.24h 0.4 Mg PO BID Lisinopril 5 Mg Tablet 5 Mg PO DAILY Metoprolol Tartrate 25 Mg Tablet 25 Mg PO BID Reported Aspirin 81 Mg Tab.chew 1 Tab PO DAILY Vitamin D3 (Cholecalciferol (Vitamin D3)) 1,000 Unit Tablet 1 Tab PO DAILY Magnesium (Magnesium Oxide) 250 Mg Tablet 250 Mg PO DAILY Stool Softener Tablet (Sennosides/Docusate Sodium) 1 Each Tablet 1 Each PO Meloxicam 7.5 Mg Tablet 1 Tab PO DAILY Tizanidine Hcl 4 Mg Tablet 1 Tab PO QHS Duoneb 0.5-3(2.5) Mg/3 Ml (Albuterol/Ipratropium) 3 Ml Ampul.neb 3 Ml NEB QID Vitals/I & O Vital Sign - Last 24 Hours 01/23/17 01/23/17 01/23/17 01/23/17 19:00 19:39 20:00 22:29 Temp 98.6 98.8 98.6 98.8 Pulse 71 98 Resp 20 19 B/P 138/69 139/72 Pulse Ox 97 98 96 O2 Delivery Room Air Room Air Room Air Room Air 01/24/17 01/24/17 01/24/17 01/24/17 03:00 07:00 08:00 09:21 Temp 99.0 97.8 99.0 97.8 Pulse 92 87 Resp 19 18 B/P 136/65 136/73 Pulse Ox 95 95 98 O2 Delivery Room Air Room Air Room Air Room Air 01/24/17 01/24/17 01/24/17 01/24/17 11:13 12:50 15:24 16:42 Temp 98.4 98.3 98.4 98.3 Pulse 92 94 Resp 18 18 B/P 132/68 125/67 Pulse Ox 96 98 96 O2 Delivery Room Air Room Air Room Air Room Air Intake and Output 01/23/17 01/23/17 01/24/17 14:59 22:59 06:59 Intake Total 420 ml 1020 ml 1000 ml Output Total 1200 ml 1000 ml 1100 ml Balance -780 ml 20 ml -100 ml JOSÉ MIGUEL RAINES MD Jan 24, 2017 17:44
[2017-01-24 19:10] VITALS: BP 139/66
[2017-01-24 23:10] VITALS: BP 111/49
[2017-01-25] MEDS: PIPERACILLIN/TAZOBACTAM 3.375 GM in IV NORMAL SALINE 50ML 50 ML IV SCH ×5 (00:47→22:52)
[2017-01-25 03:10] VITALS: BP 120/69
[2017-01-25] MEDS: IPRATRPIUM/ALBUTEROL 0.5/2.5MG 3 ML NEBU. NEB SCH ×4 (06:03→20:30)
[2017-01-25 07:45] VITALS: BP 149/68
[2017-01-25] MEDS: FINASTERIDE 5 MG TABLET. PO SCH (08:50)
[2017-01-25] MEDS: TAMSULOSIN 0.4 MG CAP.ER.24H. PO SCH ×2 (08:50→20:35)
[2017-01-25] MEDS: MAGNESIUM OXIDE 400 MG TABLET PO SCH (08:50)
[2017-01-25 10:47] VITALS: BP 141/74
--- NOTE | 2017-01-25 12:40 | PDOC ---
PROGRESS NOTES Subjective Subjective Patient without complaint, does feel better. Objective Objective Vital Signs Date Time Temp Pulse Resp B/P Pulse Ox O2 Delivery O2 Flow Rate FiO2 01/25/17 11:22 95 Room Air 01/25/17 10:47 97.7 75 18 141/74 97.7 01/22/17 19:00 3.0 Intake and Output 01/25/17 07:00 Intake Total 2275 ml Output Total 1850 ml Balance 425 ml Intake Oral 2225 ml IV Total 50 ml Output Urine Total 1850 ml # Bowel Movements 2 Physical Exam Abdomen: Normal bowel sounds, Soft, No tenderness Heart: Regular rate Extremities: No edema General: Alert, Oriented X3, No acute distress Lungs: Clear to auscultation Assessment Assessment Problems Medical Problems: (1) Sepsis Status: Acute (2) UTI (urinary tract infection) Status: Acute Plan Plan of Care 1. Sepsis due to UTI - much improved, hypotension resolved. Urine culture shows Enterobacter. Defer to ID as to change of abx. 2. SVT - intermittent. Resume his Metoprolol and follow on telemetry. 3. urinary retention - stable, continue Ayoub and meds per Urology. 4. COPD - stable. Comment Review of Relevant I have reviewed the following items sammie (where applicable) has been applied. Labs Laboratory Tests Test 01/23/17 18:20 01/24/17 05:30 Sodium Level 135mmol/L (136-145) Potassium Level 3.7mmol/L (3.5-5.1) Chloride Level 99mmol/L (98-107) Carbon Dioxide Level 28mmol/L (21-32) Anion Gap 8 (6-14) Blood Urea Nitrogen 11mg/dL (8-26) Creatinine 0.9mg/dL (0.7-1.3) Estimated GFR (Cockcroft-Gault) 84.4 BUN/Creatinine Ratio 12 (6-20) Glucose Level 133mg/dL (70-99) Calcium Level 8.5mg/dL (8.5-10.1) Total Bilirubin 0.5mg/dL (0.2-1.0) Aspartate Amino Transf (AST/SGOT) 43U/L (15-37) Alanine Aminotransferase (ALT/SGPT) 37U/L (16-63) Alkaline Phosphatase 80U/L (46-116) Total Protein 7.0g/dL (6.4-8.2) Albumin 2.5g/dL (3.4-5.0) Albumin/Globulin Ratio 0.6 (1.0-1.7) White Blood Count 10.3x10^3/uL (4.0-11.0) Red Blood Count 3.33x10^6/uL (4.30-5.70) Hemoglobin 9.3g/dL (13.0-17.5) Hematocrit 27.9% (39.0-53.0) Mean Corpuscular Volume 84fL (79-100) Mean Corpuscular Hemoglobin 28pg (25-35) Mean Corpuscular Hemoglobin Concent 33g/dL (31-37) Red Cell Distribution Width 14.1% (11.5-14.5) Platelet Count 453x10^3/uL (140-400) Neutrophils (%) (Auto) 84% (31-73) Lymphocytes (%) (Auto) 8% (24-48) Monocytes (%) (Auto) 7% (0-9) Eosinophils (%) (Auto) 1% (0-3) Basophils (%) (Auto) 1% (0-3) Neutrophils # (Auto) 8.7x10^3uL (1.8-7.7) Lymphocytes # (Auto) 0.8x10^3/uL (1.0-4.8) Monocytes # (Auto) 0.7x10^3/uL (0.0-1.1) Eosinophils # (Auto) 0.1x10^3/uL (0.0-0.7) Basophils # (Auto) 0.1x10^3/uL (0.0-0.2) Microbiology 01/23/17 Urine Culture - Preliminary, Resulted 01/23/17 Urine Culture Result 1 (RYLAN) - Preliminary, Resulted Medications Current Medications Sodium Chloride (Iv Sodium Chloride 0.9% 1000ml Bag) 1,000 ml @ 1,000 mls/hr Q1H IV Last administered on 01/22/17t 12:30; Start 01/22/17 at 12:20; Stop at 13:19; Status DC Albuterol/ Ipratropium 3 ml 3 ml 1X ONCE NEB Last administered on 01/22/17t 13 :57; Start 01/22/17 at 14:00; Stop 01/22/17 at 14:01; Status DC Levofloxacin/ Dextrose 100 ml @ 100 mls/hr 1X ONCE IV Last administered on 14:29; Start 01/22/17 at 14:00; Stop 01/22/17 at 14:59; Status DC Sodium Chloride (Iv Sodium Chloride 0.9% 1000ml Bag) 1,000 ml @ 100 mls/hr Q10H IV Last administered on 01/23/17 11:01; Start 01/22/17 at 14:15; Stop at 14:14; Status DC Albuterol/ Ipratropium (Duoneb) 3 ml RTQID NEB Last administered on 01/22/17 16:11; Start 01/22/17 at 16:00; Stop 01/22/17 at 17:42; Status DC Albuterol/ Ipratropium (Duoneb) 3 ml RTQID NEB Last administered on 01/25/17 11:21; Start 01/22/17 at 21:00 Tamsulosin HCl (Flomax) 0.4 mg BID PO Last administered on 01/25/17 08:50; Start 01/22/17 at 21:00 Magnesium Oxide 400 mg 400 mg DAILY PO Last administered on 01/25/17 08:50; Start 01/23/17 at 09:00 Ceftriaxone Sodium/Sodium Chloride (Rocephin/Iv Sodium Chloride 0.9% 50ml) 50 ml @ 100 mls/hr Q24H IV ; Start 01/24/17 at 06:00; Stop 01/24/17 at 06:00; Status DC Acetaminophen 650 mg 650 mg PRN Q4HRS PRN PO MILD PAIN Last administered on 01:59; Start 01/23/17 at 01:45 Ceftriaxone Sodium/Sodium Chloride (Rocephin/Iv Sodium Chloride 0.9% 50ml) 50 ml @ 100 mls/hr ONCE ONCE IV Last administered on 01/23/17 02:00; Start at 02:00; Stop 01/23/17 at 02:30; Status DC Iohexol (Omnipaque 240 Mg/ml) 30 ml 1X ONCE PO Last administered on 01/23/17 09:30; Start 01/23/17 at 09:30; Stop 01/23/17 at 09:31; Status DC Info 1 each 1 each PRN DAILY PRN MC SEE COMMENTS; Start 01/23/17 at 09:45; Stop 01/25/17 at 09:44; Status DC Piperacillin Sod/ Tazobactam Sod/ Sodium Chloride (Zosyn/Iv Sodium Chloride 0.9 % 50ml) 50 ml @ 100 mls/hr Q6HRS IV Last administered on 01/25/17 12:04; Start 01/23/17 at 11:00 Finasteride (Proscar) 5 mg DAILY PO Last administered on 01/25/17 08:50; Start 01/24/17 at 09:00 Active Scripts Active Flomax (Tamsulosin Hcl) 0.4 Mg Cap.er.24h 0.4 Mg PO BID Lisinopril 5 Mg Tablet 5 Mg PO DAILY Metoprolol Tartrate 25 Mg Tablet 25 Mg PO BID Reported Aspirin 81 Mg Tab.chew 1 Tab PO DAILY Vitamin D3 (Cholecalciferol (Vitamin D3)) 1,000 Unit Tablet 1 Tab PO DAILY Magnesium (Magnesium Oxide) 250 Mg Tablet 250 Mg PO DAILY Stool Softener Tablet (Sennosides/Docusate Sodium) 1 Each Tablet 1 Each PO Meloxicam 7.5 Mg Tablet 1 Tab PO DAILY Tizanidine Hcl 4 Mg Tablet 1 Tab PO QHS Duoneb 0.5-3(2.5) Mg/3 Ml (Albuterol/Ipratropium) 3 Ml Ampul.neb 3 Ml NEB QID Vitals/I & O Vital Sign - Last 24 Hours 01/24/17 01/24/17 01/24/17 01/24/17 12:50 15:24 16:42 19:10 Temp 98.3 97.5 98.3 97.5 Pulse 94 94 Resp 18 18 B/P 125/67 139/66 Pulse Ox 98 96 98 O2 Delivery Room Air Room Air Room Air Room Air 01/24/17 01/24/17 01/24/17 01/25/17 19:46 20:15 23:10 03:10 Temp 98.4 97.9 98.4 97.9 Pulse 83 85 Resp 18 18 B/P 111/49 120/69 Pulse Ox 96 95 95 O2 Delivery Room Air Room Air Room Air Room Air 01/25/17 01/25/17 01/25/17 01/25/17 06:03 07:45 08:00 10:47 Temp 97.7 97.7 97.7 97.7 Pulse 84 75 Resp 18 18 B/P 149/68 141/74 Pulse Ox 98 95 95 O2 Delivery Room Air Room Air Room Air Room Air 01/25/17 11:22 Pulse Ox 95 O2 Delivery Room Air Intake and Output 01/24/17 01/24/17 01/25/17 15:00 23:00 07:00 Intake Total 400 ml 1325 ml 550 ml Output Total 1350 ml 500 ml Balance 400 ml -25 ml 50 ml ASTRID GRAY MD Jan 25, 2017 12:40
--- NOTE | 2017-01-25 12:40 | PDOC ---
Infectious Disease Note Subjective Subjective Comfortable, denies pain Hoping to go home soon + BM ROS ROS GEN: Denies fevers, chills, sweats HEENT: Denies sore throat CV: Denies chest pain RESP: Denies shortness of air, cough GI: Denies n/v/d Vital Sign Vital Signs Vital Signs Date Time Temp Pulse Resp B/P Pulse Ox O2 Delivery O2 Flow Rate FiO2 01/25/17 11:22 95 Room Air 01/25/17 10:47 97.7 75 18 141/74 97.7 Physical Exam PHYSICAL EXAM GENERAL: Alert, relaxed appearance, in chair HEENT: OC/OP clear, edentulous LUNGS: Clear HEART: S1S2 : Ayoub ABD: Soft, NT : Ayoub EXT: No edema, no cyanosis MEDICAL INSURANCE CLAIMS SPECIALIST: Alert, oriented x 3. RUE weakness SKIN: No rash IV: ok Labs Micro URINE CULTURE RES 1 Final Comment Enterobacter cloacae complex Greater than 100,000 colony forming units per mL ANTIMICROBIAL SUSCEPTIBILITY Final Comment S = Susceptible; I = Intermediate; R = Resistant P = Positive; N = Negative MICS are expressed in micrograms per mL Antibiotic RSLT#1 RSLT#2 RSLT#3 RSLT#4 Amoxicillin/Clavulanic Acid R Cefazolin R Cefepime S Ceftriaxone S Cefuroxime R Cephalothin R Ciprofloxacin S Ertapenem S Gentamicin S Imipenem S Levofloxacin S Nitrofurantoin S Piperacillin S Tetracycline S Tobramycin S Trimethoprim/Sulfa S Objective Assessment ? sepsis - hypotension/Leukocytosis/RANDA - better GNR UTI- POA s/p urinary retention and Ayoub removal/replacement 01/21. Enterobacter Leukocytosis, improved RANDA, improved Fluid collection in GB fossa. ? seroma. S/p Lap la nena 01/10 Plan Plan of Care Cont Zosyn for now supportive care Patient seen and examined. Chart reviewed in detail. Case discussed with JUMPBASTING [employer]ING BASTER. WBC normalized. Agree with above plan GLEN HINDS APRN Jan 25, 2017 12:39 BRENDAN MALIK MD Jan 25, 2017 15:33
[2017-01-25] MEDS: METOPROLOL TART IMMED RELEASE 25 MG TABLET. PO SCH ×2 (12:45→20:37)
[2017-01-25 14:54] VITALS: BP 136/85
[2017-01-25 19:37] VITALS: BP 133/73
[2017-01-25 22:51] VITALS: BP 132/73
[2017-01-26 03:59] LABS: BASO # 0.1 x10^3/uL (0.0-0.2); BASO % 1 % (0-3); EOS % 2 % (0-3); HEMATOCRIT 26.9 % (39.0-53.0); HEMOGLOBIN 9.3 g/dL (13.0-17.5); LYMPH # 1.4 x10^3/uL (1.0-4.8); LYMPH % 19 % (24-48); MEAN CORPUSCULAR HEMOGLOBIN 28 pg (25-35); MEAN CORPUSCULAR HGB CONC 34 g/dL (31-37); MEAN CORPUSCULAR VOLUME 82 fL (79-100); MONO % 8 % (0-9); NEUT % 69 % (31-73); PLATELET COUNT 535 x10^3/uL (140-400); RED BLOOD COUNT 3.26 x10^6/uL (4.30-5.70); RED CELL DISTRIBUTION WIDTH 14.3 % (11.5-14.5); WHITE BLOOD COUNT 7.2 x10^3/uL (4.0-11.0)
[2017-01-26] MEDS: IPRATRPIUM/ALBUTEROL 0.5/2.5MG 3 ML NEBU. NEB SCH ×4 (06:15→19:12)
[2017-01-26] MEDS: PIPERACILLIN/TAZOBACTAM 3.375 GM in IV NORMAL SALINE 50ML 50 ML IV SCH ×3 (06:16→17:58)
[2017-01-26 07:39] VITALS: BP 138/70
[2017-01-26] MEDS: METOPROLOL TART IMMED RELEASE 25 MG TABLET. PO SCH (08:17)
[2017-01-26] MEDS: TAMSULOSIN 0.4 MG CAP.ER.24H. PO SCH ×2 (08:17→20:17)
[2017-01-26] MEDS: MAGNESIUM OXIDE 400 MG TABLET PO SCH (08:17)
[2017-01-26] MEDS: FINASTERIDE 5 MG TABLET. PO SCH (08:17)
--- NOTE | 2017-01-26 09:34 | PDOC ---
Infectious Disease Note Subjective Subjective Comfortable, denies pain Hoping to go home soon ROS ROS GEN: Denies fevers, chills, sweats HEENT: Denies sore throat CV: Denies chest pain RESP: Denies shortness of air, cough GI: Denies n/v/d Vital Sign Vital Signs Vital Signs Date Time Temp Pulse Resp B/P Pulse Ox O2 Delivery O2 Flow Rate FiO2 01/26/17 08:17 84 138/70 01/26/17 07:39 97.6 18 94 Room Air 97.6 Physical Exam PHYSICAL EXAM GENERAL: Alert, relaxed appearance, in chair HEENT: OC/OP clear, edentulous LUNGS: Clear HEART: S1S2 : Ayoub ABD: Soft, NT : Ayoub EXT: No edema, no cyanosis LOPPER: Alert, oriented x 3. RUE weakness SKIN: No rash IV: ok Labs Lab Laboratory Tests Test 01/26/17 03:09 White Blood Count 7.2x10^3/uL (4.0-11.0) Red Blood Count 3.26x10^6/uL (4.30-5.70) Hemoglobin 9.3g/dL (13.0-17.5) Hematocrit 26.9% (39.0-53.0) Mean Corpuscular Volume 82fL (79-100) Mean Corpuscular Hemoglobin 28pg (25-35) Mean Corpuscular Hemoglobin Concent 34g/dL (31-37) Red Cell Distribution Width 14.3% (11.5-14.5) Platelet Count 535x10^3/uL (140-400) Neutrophils (%) (Auto) 69% (31-73) Lymphocytes (%) (Auto) 19% (24-48) Monocytes (%) (Auto) 8% (0-9) Eosinophils (%) (Auto) 2% (0-3) Basophils (%) (Auto) 1% (0-3) Neutrophils # (Auto) 5.0x10^3uL (1.8-7.7) Lymphocytes # (Auto) 1.4x10^3/uL (1.0-4.8) Monocytes # (Auto) 0.6x10^3/uL (0.0-1.1) Eosinophils # (Auto) 0.1x10^3/uL (0.0-0.7) Basophils # (Auto) 0.1x10^3/uL (0.0-0.2) C-Reactive Protein, Quantitative 85.8mg/L (0-3.3) Objective Assessment ? sepsis - hypotension/Leukocytosis/RANDA - better GNR UTI- POA s/p urinary retention and Ayoub removal/replacement 01/21. Enterobacter Leukocytosis, improved RANDA, improved Fluid collection in GB fossa. ? seroma. S/p Lap la nena 01/10 Plan Plan of Care Cont Zosyn for now CRP 85.8 Supportive care Patient seen and examined. Chart reviewed. Case d/w SUPERVISOR MILL. Agree with above plan GLEN HINDS FORKLIFT PICKER Jan 26, 2017 09:34 BRENDAN MALIK MD Jan 26, 2017 16:00
--- NOTE | 2017-01-26 11:04 | PDOC ---
PROGRESS NOTES Subjective Subjective Patient without complaint, wants to go home. Objective Objective Vital Signs Date Time Temp Pulse Resp B/P Pulse Ox O2 Delivery O2 Flow Rate FiO2 01/26/17 08:17 84 138/70 01/26/17 08:00 Room Air 01/26/17 07:39 97.6 18 94 97.6 01/22/17 19:00 3.0 Intake and Output 01/26/17 07:00 Intake Total 1020 ml Output Total 1050 ml Balance -30 ml Intake Oral 1020 ml Output Urine Total 1050 ml Physical Exam Abdomen: Normal bowel sounds, Soft, No tenderness Heart: Regular rate Extremities: No edema General: Alert, Oriented X3, No acute distress Lungs: Clear to auscultation Assessment Assessment Problems Medical Problems: (1) Sepsis Status: Acute (2) UTI (urinary tract infection) Status: Acute Plan Plan of Care 1. Sepsis with UTI - Enterobacter, continue Zosyn per ID. Hypotension resolved. 2. SVT - Metoprolol 25mg BID resumed yesterday, still having episodes of tachycardia. Will try increased dose today, continue to follow on Telemetry. 3. urinary retention - continue Ayoub, Proscar and Flomax per Urology. 4. COPD - stable. 5. debility - PT and OT ordered, patient reports he has only been walking short distances in his room. Comment Review of Relevant I have reviewed the following items sammie (where applicable) has been applied. Labs Laboratory Tests Test 01/26/17 03:09 White Blood Count 7.2x10^3/uL (4.0-11.0) Red Blood Count 3.26x10^6/uL (4.30-5.70) Hemoglobin 9.3g/dL (13.0-17.5) Hematocrit 26.9% (39.0-53.0) Mean Corpuscular Volume 82fL (79-100) Mean Corpuscular Hemoglobin 28pg (25-35) Mean Corpuscular Hemoglobin Concent 34g/dL (31-37) Red Cell Distribution Width 14.3% (11.5-14.5) Platelet Count 535x10^3/uL (140-400) Neutrophils (%) (Auto) 69% (31-73) Lymphocytes (%) (Auto) 19% (24-48) Monocytes (%) (Auto) 8% (0-9) Eosinophils (%) (Auto) 2% (0-3) Basophils (%) (Auto) 1% (0-3) Neutrophils # (Auto) 5.0x10^3uL (1.8-7.7) Lymphocytes # (Auto) 1.4x10^3/uL (1.0-4.8) Monocytes # (Auto) 0.6x10^3/uL (0.0-1.1) Eosinophils # (Auto) 0.1x10^3/uL (0.0-0.7) Basophils # (Auto) 0.1x10^3/uL (0.0-0.2) C-Reactive Protein, Quantitative 85.8mg/L (0-3.3) Laboratory Tests Test 01/26/17 03:09 White Blood Count 7.2x10^3/uL (4.0-11.0) Red Blood Count 3.26x10^6/uL (4.30-5.70) Hemoglobin 9.3g/dL (13.0-17.5) Hematocrit 26.9% (39.0-53.0) Mean Corpuscular Volume 82fL (79-100) Mean Corpuscular Hemoglobin 28pg (25-35) Mean Corpuscular Hemoglobin Concent 34g/dL (31-37) Red Cell Distribution Width 14.3% (11.5-14.5) Platelet Count 535x10^3/uL (140-400) Neutrophils (%) (Auto) 69% (31-73) Lymphocytes (%) (Auto) 19% (24-48) Monocytes (%) (Auto) 8% (0-9) Eosinophils (%) (Auto) 2% (0-3) Basophils (%) (Auto) 1% (0-3) Neutrophils # (Auto) 5.0x10^3uL (1.8-7.7) Lymphocytes # (Auto) 1.4x10^3/uL (1.0-4.8) Monocytes # (Auto) 0.6x10^3/uL (0.0-1.1) Eosinophils # (Auto) 0.1x10^3/uL (0.0-0.7) Basophils # (Auto) 0.1x10^3/uL (0.0-0.2) C-Reactive Protein, Quantitative 85.8mg/L (0-3.3) Microbiology 01/23/17 Urine Culture - Final, Complete 01/23/17 Urine Culture Result 1 (RYLAN) - Final, Complete Medications Current Medications Sodium Chloride (Iv Sodium Chloride 0.9% 1000ml Bag) 1,000 ml @ 1,000 mls/hr Q1H IV Last administered on 01/22/17 12:30; Start 01/22/17 at 12:20; Stop at 13:19; Status DC Albuterol/ Ipratropium 3 ml 3 ml 1X ONCE NEB Last administered on 01/22/17 13 :57; Start 01/22/17 at 14:00; Stop 01/22/17 at 14:01; Status DC Levofloxacin/ Dextrose 100 ml @ 100 mls/hr 1X ONCE IV Last administered on 14:29; Start 01/22/17 at 14:00; Stop 01/22/17 at 14:59; Status DC Sodium Chloride (Iv Sodium Chloride 0.9% 1000ml Bag) 1,000 ml @ 100 mls/hr Q10H IV Last administered on 01/23/17 11:01; Start 01/22/17 at 14:15; Stop at 14:14; Status DC Albuterol/ Ipratropium (Duoneb) 3 ml RTQID NEB Last administered on 01/22/17 16:11; Start 01/22/17 at 16:00; Stop 01/22/17 at 17:42; Status DC Albuterol/ Ipratropium (Duoneb) 3 ml RTQID NEB Last administered on 01/26/17 06:15; Start 01/22/17 at 21:00 Tamsulosin HCl (Flomax) 0.4 mg BID PO Last administered on 01/26/17 08:17; Start 01/22/17 at 21:00 Magnesium Oxide 400 mg 400 mg DAILY PO Last administered on 01/26/17 08:17; Start 01/23/17 at 09:00 Ceftriaxone Sodium/Sodium Chloride (Rocephin/Iv Sodium Chloride 0.9% 50ml) 50 ml @ 100 mls/hr Q24H IV ; Start 01/24/17 at 06:00; Stop 01/24/17 at 06:00; Status DC Acetaminophen 650 mg 650 mg PRN Q4HRS PRN PO MILD PAIN Last administered on 01:59; Start 01/23/17 at 01:45 Ceftriaxone Sodium/Sodium Chloride (Rocephin/Iv Sodium Chloride 0.9% 50ml) 50 ml @ 100 mls/hr ONCE ONCE IV Last administered on 01/23/17 02:00; Start at 02:00; Stop 01/23/17 at 02:30; Status DC Iohexol (Omnipaque 240 Mg/ml) 30 ml 1X ONCE PO Last administered on 01/23/17 09:30; Start 01/23/17 at 09:30; Stop 01/23/17 at 09:31; Status DC Info 1 each 1 each PRN DAILY PRN MC SEE COMMENTS; Start 01/23/17 at 09:45; Stop 01/25/17 at 09:44; Status DC Piperacillin Sod/ Tazobactam Sod/ Sodium Chloride (Zosyn/Iv Sodium Chloride 0.9 % 50ml) 50 ml @ 100 mls/hr Q6HRS IV Last administered on 01/26/17 06:16; Start 01/23/17 at 11:00 Finasteride (Proscar) 5 mg DAILY PO Last administered on 01/26/17 08:17; Start 01/24/17 at 09:00 Metoprolol Tartrate (Lopressor) 25 mg BID PO Last administered on 01/26/17 08: 17; Start 01/25/17 at 12:45 Active Scripts Active Flomax (Tamsulosin Hcl) 0.4 Mg Cap.er.24h 0.4 Mg PO BID Lisinopril 5 Mg Tablet 5 Mg PO DAILY Metoprolol Tartrate 25 Mg Tablet 25 Mg PO BID Reported Aspirin 81 Mg Tab.chew 1 Tab PO DAILY Vitamin D3 (Cholecalciferol (Vitamin D3)) 1,000 Unit Tablet 1 Tab PO DAILY Magnesium (Magnesium Oxide) 250 Mg Tablet 250 Mg PO DAILY Stool Softener Tablet (Sennosides/Docusate Sodium) 1 Each Tablet 1 Each PO Meloxicam 7.5 Mg Tablet 1 Tab PO DAILY Tizanidine Hcl 4 Mg Tablet 1 Tab PO QHS Duoneb 0.5-3(2.5) Mg/3 Ml (Albuterol/Ipratropium) 3 Ml Ampul.neb 3 Ml NEB QID Vitals/I & O Vital Sign - Last 24 Hours 01/25/17 01/25/17 01/25/17 01/25/17 11:22 12:45 14:40 14:54 Temp 97.9 97.9 Pulse 75 77 Resp 18 B/P 141/74 136/85 Pulse Ox 95 95 99 O2 Delivery Room Air Room Air Room Air 01/25/17 01/25/17 01/25/17 01/25/17 19:37 20:00 20:31 20:37 Temp 97.9 97.9 Pulse 76 76 Resp 20 B/P 133/73 133/73 Pulse Ox 97 97 O2 Delivery Room Air Room Air Room Air 01/25/17 01/26/17 01/26/17 01/26/17 22:51 06:15 07:39 08:00 Temp 98.2 97.6 98.2 97.6 Pulse 78 84 Resp 18 18 B/P 132/73 138/70 Pulse Ox 95 98 94 O2 Delivery Room Air Room Air Room Air Room Air 01/26/17 08:17 Pulse 84 B/P 138/70 Intake and Output 01/25/17 01/25/17 01/26/17 15:00 23:00 07:00 Intake Total 320 ml 700 ml Output Total 700 ml 350 ml Balance 320 ml 0 ml -350 ml ASTRID GRAY MD Jan 26, 2017 11:04
[2017-01-26 11:35] VITALS: BP 113/67
[2017-01-26] MEDS: METOPROLOL TART IMMED RELEASE 50 MG TABLET. PO SCH ×2 (11:55→20:18)
[2017-01-26 15:43] VITALS: BP 118/69
[2017-01-26 19:17] VITALS: BP 145/74
[2017-01-26 22:26] VITALS: BP 118/71
[2017-01-27] MEDS: PIPERACILLIN/TAZOBACTAM 3.375 GM in IV NORMAL SALINE 50ML 50 ML IV SCH ×2 (00:05→06:03)
[2017-01-27 07:00] VITALS: BP 130/73
[2017-01-27] MEDS: IPRATRPIUM/ALBUTEROL 0.5/2.5MG 3 ML NEBU. NEB SCH ×2 (07:22→13:04)
[2017-01-27] MEDS: TAMSULOSIN 0.4 MG CAP.ER.24H. PO SCH (09:00)
[2017-01-27] MEDS: METOPROLOL TART IMMED RELEASE 50 MG TABLET. PO SCH (09:00)
[2017-01-27] MEDS: FINASTERIDE 5 MG TABLET. PO SCH (09:00)
[2017-01-27] MEDS: MAGNESIUM OXIDE 400 MG TABLET PO SCH (09:02)
--- NOTE | 2017-01-27 10:25 | PDOC ---
Infectious Disease Note Subjective Subjective Comfortable, denies pain Hoping to go home soon ROS ROS GEN: Denies fevers, chills, sweats HEENT: Denies blurred vision, sore throat CV: Denies chest pain RESP: Denies shortness of air, cough GI: Denies n/v/d NEURO: Denies confusion, dizziness MSK: Denies weakness, joint pain/swelling Vital Sign Vital Signs Vital Signs Date Time Temp Pulse Resp B/P Pulse Ox O2 Delivery O2 Flow Rate FiO2 01/27/17 09:00 73 130/73 01/27/17 07:23 97 Room Air 01/27/17 07:00 97.9 18 97.9 Physical Exam PHYSICAL EXAM GENERAL: Alert, relaxed appearance, in chair HEENT: OC/OP clear, edentulous LUNGS: Clear HEART: S1S2 : Ayoub ABD: Soft, NT : Ayoub EXT: No edema, no cyanosis DIRECTOR OF MAINTENANCE: Alert, oriented x 3. RUE weakness SKIN: No rash IV: ok Labs Micro CT IMPRESSION: Fluid collection measuring approximately 7.8 x 4.6 cm in the gallbladder fossa is noted similar to minimally larger than on the examination 01/14/2017. It may represent a seroma or hematoma. Abscess is not entirely excluded. 01/22 urine Enterobacter cloacae complex Greater than 100,000 colony forming units per mL ANTIMICROBIAL SUSCEPTIBILITY Final Comment S = Susceptible; I = Intermediate; R = Resistant P = Positive; N = Negative MICS are expressed in micrograms per mL Antibiotic RSLT#1 RSLT#2 RSLT#3 RSLT#4 Amoxicillin/Clavulanic Acid R Cefazolin R Cefepime S Ceftriaxone S Cefuroxime R Cephalothin R Ciprofloxacin S Ertapenem S Gentamicin S Imipenem S Levofloxacin S Nitrofurantoin S Piperacillin S Tetracycline S Tobramycin S Trimethoprim/Sulfa S Objective Assessment ? sepsis - hypotension/Leukocytosis/RANDA - better Enterobacter UTI- POA s/p urinary retention and Ayoub removal/replacement 01/21. Leukocytosis, improved RANDA, improved Fluid collection in GB fossa. ? seroma. S/p Lap la nena 01/10 Plan Plan of Care Discont Zosyn Change to po Cipro for for 6 days Ok to d/c home TALA JUAREZ MD Jan 27, 2017 10:24
[2017-01-27] MEDS ORDERED: CIPROFLOXACIN HCL 250 MG TABLET. PO SCH (10:30)
[2017-01-27 10:55] VITALS: BP 125/70
[2017-01-27] MEDS ORDERED: CIPR250T PO (13:10)
[2017-01-27] MEDS ORDERED: FINA5TAB4 PO (13:10)
[2017-01-27] MEDS ORDERED: Magnesium Oxide PO (13:10)
[2017-01-27] MEDS ORDERED: METO25TA4 PO (13:10)
--- NOTE | 2017-01-27 23:35 | DS ---
DATE OF DISCHARGE: 01/27/2017 ADMITTING DIAGNOSIS: Septic shock. DISMISSAL DIAGNOSIS: Urinary tract infection with sepsis. SECONDARY DIAGNOSES: 1. Supraventricular tachycardia. 2. Urinary retention. 3. Chronic obstructive pulmonary disease. HISTORY OF PRESENT ILLNESS AND HOSPITAL COURSE: This patient was admitted from the office with low blood pressures in the 70s/40s range. He was sent to the Emergency Room, where he was found to have UTI and symptoms consistent with sepsis. Sepsis protocol was begun with institution of antibiotics and IV fluids. The patient had recently been hospitalized due to cholecystitis and developed urinary retention during that hospital stay. The patient's symptoms of sepsis began after replacing his Ayoub approximately 2 days prior to admission. He underwent fluid hydration and IV antibiotics, his blood pressure improved and the patient began having episodes of SVT. He was restarted on his metoprolol and his symptoms improved. He was back to baseline and cultures returned sensitive to ciprofloxacin. Therefore, the patient was switched to p.o. antibiotics. Physical therapy was done on the patient and the patient was deemed stable to go home with assistance from his and the use of a walker. The patient will follow up within 2 weeks with Urology for urinary retention and removal of Ayoub with leg bag. He will also follow up with Cardiology for SVT for continued cardiac workup and an event monitor as recommended from previous consultation on previous hospitalization. DISCHARGE MEDICATIONS: The patient will be discharged on the following medications: Cipro 500 mg 1 p.o. b.i.d. for 1 more week, aspirin 81 mg daily, vitamin D 1000 international units daily, DuoNeb nebulizer treatments q. 6h., meloxicam 7.5 mg daily, Flomax 0.4 mg b.i.d., ____ 4 mg at bedtime, metoprolol will be increased to 50 mg b.i.d., finasteride was started during this hospitalization for BPH 5 mg daily, and magnesium oxide 400 mg 1 p.o. daily will be started. DISCHARGE INSTRUCTIONS: The patient will follow up in clinic in one week for continued care.: Follow up with Urology as recommended and Cardiology for event monitor and further cardiac workup. JOSÉ MIGUEL RAINES MD DR: PARESH/demetrio JOB#: [id number] / [id number]
== END 2017-01-27 15:06 | disposition home or self-care (01) | DRG 871 ==
LOC: ER 11:06 → 6 SOUTH 13:50
PROVIDERS: ADMIT Family Medicine; ATTEND Family Medicine
DX: A41.9 Sepsis, unspecified organism (principal); R65.21 Severe sepsis with septic shock; N17.0 Acute kidney failure with tubular necrosis; N39.0 Urinary tract infection, site not specified; N17.9 Acute kidney failure, unspecified; E87.1 Hypo-osmolality and hyponatremia; I10 Essential (primary) hypertension; J44.9 Chronic obstructive pulmonary disease, unspecified; M17.0 Bilateral primary osteoarthritis of knee; N40.0 Benign prostatic hyperplasia without lower urinary tract symptoms; G62.9 Polyneuropathy, unspecified; B96.89 Other specified bacterial agents as the cause of diseases classified elsewhere; Z90.49 Acquired absence of other specified parts of digestive tract; Z80.42 Family history of malignant neoplasm of prostate; Z87.891 Personal history of nicotine dependence
CPT/HCPCS: 36415; 51702; 74176; 80048; 80053; 81001; 83605; 84145; 85027; 86140; 87086; 87186; 93005; 94250; 94640; 94760; 96361; 96365; J0696; J1956; J2543; J7030; J7620; Q9966; 99285-25

== ENCOUNTER 2017-10-30 21:52 | Inpatient (IN) | payer BC ==
[2017-10-30] MEDS: IPRATRPIUM/ALBUTEROL 0.5/2.5MG 3 ML NEBU. NEB ×2 (22:23)
[2017-10-30 22:29] LABS: BASO % 0 % (0-3); EOS % 0 % (0-3); HEMATOCRIT 32.9 % (39.0-53.0); HEMOGLOBIN 10.9 g/dL (13.0-17.5); LYMPH # 1.2 x10^3/uL (1.0-4.8); LYMPH % 8 % (24-48); MEAN CORPUSCULAR HEMOGLOBIN 28 pg (25-35); MEAN CORPUSCULAR HGB CONC 33 g/dL (31-37); MEAN CORPUSCULAR VOLUME 84 fL (79-100); MONO # 1.5 x10^3/uL (0.0-1.1); MONO % 10 % (0-9); NEUT # 12.6 x10^3uL (1.8-7.7); NEUT % 82 % (31-73); PLATELET COUNT 340 x10^3/uL (140-400); RED BLOOD COUNT 3.91 x10^6/uL (4.30-5.70); RED CELL DISTRIBUTION WIDTH 13.7 % (11.5-14.5); WHITE BLOOD COUNT 15.3 x10^3/uL (4.0-11.0)
[2017-10-30 22:30] LABS: ADD MAN DIFF? YES
[2017-10-30] MEDS: methylPREDNISolone SOD SUCC PF 125 MG/2 ML VIAL. IV ×2 (22:34)
[2017-10-30 22:40] LABS: ANION GAP 9 (6-14); BLOOD UREA NITROGEN 21 mg/dL (8-26); BUN/CREATININE RATIO 26 (6-20); CALCIUM 8.2 mg/dL (8.5-10.1); CARBON DIOXIDE 31 mmol/L (21-32); CHLORIDE 95 mmol/L (98-107); CREATININE 0.8 mg/dL (0.7-1.3); GFR 96.7; GLUCOSE 174 mg/dL (70-99); POTASSIUM 3.7 mmol/L (3.5-5.1); SODIUM 135 mmol/L (136-145)
[2017-10-30] MEDS: IV NORMAL SALINE 1000ML BAG 1,000 ML IV ×2 (22:40)
[2017-10-30 22:46] LABS: ALBUMIN 2.5 g/dL (3.4-5.0); ALBUMIN/GLOBULIN RATIO 0.6 (1.0-1.7); ALK PHOS 116 U/L (46-116); ALT (SGPT) 63 U/L (16-63); AST (SGOT) 54 U/L (15-37); TOTAL BILIRUBIN 0.7 mg/dL (0.2-1.0)
[2017-10-30 22:47] LABS: TROPONINI < 0.017 ng/mL (0.000-0.055)
[2017-10-30 22:55] LABS: NT-PRO BNP 394 pg/mL (0-124)
[2017-10-30 22:55] LABS: CKMB INDEX 0.7 % (0-4); CKMB MASS 2.1 ng/mL (0.0-3.6); CREATINE KINASE 282 U/L (39-308)
[2017-10-30] MEDS ORDERED: IV NORMAL SALINE 1000ML BAG 1,000 ML IV ×2 (23:00)
[2017-10-30 23:11] LABS: % BANDS 1 % (0-9); % LYMPHS 8 % (24-48); % MONOS 9 % (0-10); % SEGS 82 % (35-66); PLT ESTIMATE ADEQUATE (ADEQUATE); TOXIC GRANULATION SLIGHT
[2017-10-31] MEDS ORDERED: ACETAMINOPHEN 325 MG TABLET. PO ×2 (00:15)
[2017-10-31] MEDS ORDERED: ONDANSETRON PF 4 MG/2 ML VIAL. IV ×2 (00:15)
[2017-10-31] MEDS ORDERED: fentaNYL PF VIAL 100 MCG/2 ML VIAL IV ×2 (00:15)
[2017-10-31] MEDS ORDERED: levOFLOXacin PER PHARMACY. MC ×2 (00:15)
[2017-10-31 00:55] LABS: INFLUENZA A PATIENT NEGATIVE (NEGATIVE); INFLUENZA B PATIENT NEGATIVE (NEGATIVE); OBC FLU VALID
[2017-10-31] MEDS: IV NORMAL SALINE 1000ML BAG 1,000 ML IV ×10 (01:41→18:34)
[2017-10-31] MEDS: methylPREDNISolone SOD SUCC PF 40 MG/ML VIAL. IV ×8 (06:22→23:05)
[2017-10-31] MEDS: FINASTERIDE 5 MG TABLET. PO ×2 (09:56)
[2017-10-31] MEDS: TAMSULOSIN 0.4 MG CAP.ER.24H. PO ×4 (09:56→20:47)
[2017-10-31] MEDS: ASPIRIN CHEWABLE 81 MG TABLET. PO ×2 (09:56)
[2017-10-31] MEDS: METOPROLOL TART IMMED RELEASE 25 MG TABLET. PO ×4 (09:56→20:50)
[2017-10-31] MEDS: MAGNESIUM OXIDE 400 MG TABLET PO ×2 (09:56)
[2017-10-31] MEDS: CHOLECALCIFEROL (VITAMIN D3) 1,000 UNIT TABLET PO ×2 (09:56)
[2017-10-31] MEDS: MELOXICAM 7.5 MG TABLET PO ×2 (09:56)
[2017-10-31] MEDS: IPRATRPIUM/ALBUTEROL 0.5/2.5MG 3 ML NEBU. NEB ×8 (11:36→19:56)
[2017-10-31] MEDS: VANCOMYCIN 1.75 GM in IV DEXTROSE 5 %-0.2 % NACL 500 ML IV (12:29)
[2017-10-31] MEDS: VANCOMYCIN PER PHARMACY MC ×2 (14:54)
[2017-10-31] MEDS: tiZANidine 4 MG TABLET. PO ×2 (20:47)
[2017-10-31] MEDS: VANCOMYCIN 1.25 GM in IV 1/2 NORMAL SALINE 250 ML IV (23:06)
[2017-11-01 05:20] LABS: ADD MAN DIFF? NO
[2017-11-01] MEDS: methylPREDNISolone SOD SUCC PF 40 MG/ML VIAL. IV ×2 (05:41)
[2017-11-01 05:42] LABS: BASO % 0 % (0-3); EOS % 0 % (0-3); HEMATOCRIT 30.9 % (39.0-53.0); HEMOGLOBIN 10.2 g/dL (13.0-17.5); LYMPH # 0.7 x10^3/uL (1.0-4.8); LYMPH % 5 % (24-48); MEAN CORPUSCULAR HEMOGLOBIN 28 pg (25-35); MEAN CORPUSCULAR HGB CONC 33 g/dL (31-37); MEAN CORPUSCULAR VOLUME 84 fL (79-100); MONO # 0.3 x10^3/uL (0.0-1.1); MONO % 3 % (0-9); NEUT # 12.5 x10^3uL (1.8-7.7); NEUT % 93 % (31-73); PLATELET COUNT 334 x10^3/uL (140-400); RED BLOOD COUNT 3.67 x10^6/uL (4.30-5.70); RED CELL DISTRIBUTION WIDTH 13.7 % (11.5-14.5); WHITE BLOOD COUNT 13.5 x10^3/uL (4.0-11.0)
[2017-11-01 06:30] LABS: ANION GAP 6 (6-14); BLOOD UREA NITROGEN 19 mg/dL (8-26); CARBON DIOXIDE 29 mmol/L (21-32); CHLORIDE 106 mmol/L (98-107); CREATININE 0.5 mg/dL (0.7-1.3); GFR 166.4; GLUCOSE 150 mg/dL (70-99); POTASSIUM 4.2 mmol/L (3.5-5.1); SODIUM 141 mmol/L (136-145)
[2017-11-01] MEDS: IPRATRPIUM/ALBUTEROL 0.5/2.5MG 3 ML NEBU. NEB ×8 (07:36→19:25)
[2017-11-01] MEDS: ASPIRIN CHEWABLE 81 MG TABLET. PO ×2 (08:20)
[2017-11-01] MEDS: FINASTERIDE 5 MG TABLET. PO ×2 (08:20)
[2017-11-01] MEDS: CHOLECALCIFEROL (VITAMIN D3) 1,000 UNIT TABLET PO ×2 (08:20)
[2017-11-01] MEDS: TAMSULOSIN 0.4 MG CAP.ER.24H. PO ×4 (08:20→20:08)
[2017-11-01] MEDS: MELOXICAM 7.5 MG TABLET PO ×2 (08:20)
[2017-11-01] MEDS: METOPROLOL TART IMMED RELEASE 25 MG TABLET. PO ×4 (08:20→20:09)
[2017-11-01] MEDS: MAGNESIUM OXIDE 400 MG TABLET PO ×2 (08:20)
[2017-11-01] MEDS: LACTOBACILLUS RHAMNOSUS GG 1 CAPSULE. PO ×4 (08:21→20:08)
[2017-11-01] MEDS: predniSONE 10 MG TABLET PO ×2 (10:27)
[2017-11-01] MEDS: VANCOMYCIN PER PHARMACY MC ×2 (11:05)
[2017-11-01] MEDS: VANCOMYCIN 1.25 GM in IV 1/2 NORMAL SALINE 250 ML IV ×2 (11:49→23:36)
[2017-11-01] MEDS: tiZANidine 4 MG TABLET. PO ×2 (20:08)
[2017-11-02 04:17] LABS: ADD MAN DIFF? NO
[2017-11-02 04:27] LABS: BASO % 0 % (0-3); EOS % 0 % (0-3); HEMATOCRIT 31.5 % (39.0-53.0); HEMOGLOBIN 10.2 g/dL (13.0-17.5); LYMPH # 0.9 x10^3/uL (1.0-4.8); LYMPH % 6 % (24-48); MEAN CORPUSCULAR HEMOGLOBIN 28 pg (25-35); MEAN CORPUSCULAR HGB CONC 33 g/dL (31-37); MEAN CORPUSCULAR VOLUME 84 fL (79-100); MONO # 0.8 x10^3/uL (0.0-1.1); MONO % 5 % (0-9); NEUT # 13.3 x10^3uL (1.8-7.7); NEUT % 89 % (31-73); PLATELET COUNT 380 x10^3/uL (140-400); RED BLOOD COUNT 3.73 x10^6/uL (4.30-5.70); RED CELL DISTRIBUTION WIDTH 13.5 % (11.5-14.5)
[2017-11-02 04:40] LABS: ANION GAP 4 (6-14); BLOOD UREA NITROGEN 23 mg/dL (8-26); CARBON DIOXIDE 31 mmol/L (21-32); CHLORIDE 105 mmol/L (98-107); CREATININE 0.7 mg/dL (0.7-1.3); GFR 112.8; GLUCOSE 132 mg/dL (70-99); POTASSIUM 4.1 mmol/L (3.5-5.1); SODIUM 140 mmol/L (136-145)
[2017-11-02] MEDS: IPRATRPIUM/ALBUTEROL 0.5/2.5MG 3 ML NEBU. NEB ×8 (07:52→20:01)
[2017-11-02] MEDS: MELOXICAM 7.5 MG TABLET PO ×2 (08:23)
[2017-11-02] MEDS: CHOLECALCIFEROL (VITAMIN D3) 1,000 UNIT TABLET PO ×2 (08:23)
[2017-11-02] MEDS: LACTOBACILLUS RHAMNOSUS GG 1 CAPSULE. PO ×4 (08:23→20:23)
[2017-11-02] MEDS: predniSONE 10 MG TABLET PO ×2 (08:23)
[2017-11-02] MEDS: FINASTERIDE 5 MG TABLET. PO ×2 (08:23)
[2017-11-02] MEDS: ASPIRIN CHEWABLE 81 MG TABLET. PO ×2 (08:23)
[2017-11-02] MEDS: MAGNESIUM OXIDE 400 MG TABLET PO ×2 (08:23)
[2017-11-02] MEDS: TAMSULOSIN 0.4 MG CAP.ER.24H. PO ×4 (08:23→20:24)
[2017-11-02] MEDS: METOPROLOL TART IMMED RELEASE 25 MG TABLET. PO ×4 (08:24→20:24)
[2017-11-02] MEDS: VANCOMYCIN 1.25 GM in IV 1/2 NORMAL SALINE 250 ML IV (12:00)
[2017-11-02 12:04] LABS: VANC TR 11.1 mcg/mL (10.0-20.0)
[2017-11-02] MEDS: VANCOMYCIN PER PHARMACY MC ×2 (12:32)
[2017-11-02] MEDS: VANCOMYCIN 1 GM in IV DEXTROSE 5% 250 ML IV ×2 (13:14→20:28)
[2017-11-02] MEDS: tiZANidine 4 MG TABLET. PO ×2 (20:23)
[2017-11-03] MEDS: VANCOMYCIN 1 GM in IV DEXTROSE 5% 250 ML IV (05:14)
[2017-11-03] MEDS: IPRATRPIUM/ALBUTEROL 0.5/2.5MG 3 ML NEBU. NEB ×8 (07:56→19:55)
[2017-11-03] MEDS: MAGNESIUM OXIDE 400 MG TABLET PO ×2 (08:22)
[2017-11-03] MEDS: METOPROLOL TART IMMED RELEASE 25 MG TABLET. PO ×4 (08:23→21:14)
[2017-11-03] MEDS: LACTOBACILLUS RHAMNOSUS GG 1 CAPSULE. PO ×4 (08:23→21:14)
[2017-11-03] MEDS: ASPIRIN CHEWABLE 81 MG TABLET. PO ×2 (08:23)
[2017-11-03] MEDS: predniSONE 10 MG TABLET PO ×2 (08:23)
[2017-11-03] MEDS: FINASTERIDE 5 MG TABLET. PO ×2 (08:24)
[2017-11-03] MEDS: CHOLECALCIFEROL (VITAMIN D3) 1,000 UNIT TABLET PO ×2 (08:24)
[2017-11-03] MEDS: TAMSULOSIN 0.4 MG CAP.ER.24H. PO ×4 (08:24→21:14)
[2017-11-03] MEDS: MELOXICAM 7.5 MG TABLET PO ×2 (08:24)
[2017-11-03 12:47] LABS: VANC TR 19.8 mcg/mL (10.0-20.0)
[2017-11-03] MEDS: VANCOMYCIN PER PHARMACY MC ×2 (12:55)
[2017-11-03] MEDS: VANCOMYCIN 750 MG in IV DEXTROSE 5% 250 ML IV ×2 (15:31→21:15)
[2017-11-03] MEDS: tiZANidine 4 MG TABLET. PO ×2 (21:14)
[2017-11-04 05:22] LABS: ADD MAN DIFF? NO
[2017-11-04] MEDS: VANCOMYCIN 750 MG in IV DEXTROSE 5% 250 ML IV (05:26)
[2017-11-04 05:31] LABS: BASO % 0 % (0-3); EOS % 1 % (0-3); HEMATOCRIT 35.3 % (39.0-53.0); HEMOGLOBIN 11.9 g/dL (13.0-17.5); LYMPH # 1.6 x10^3/uL (1.0-4.8); LYMPH % 17 % (24-48); MEAN CORPUSCULAR HEMOGLOBIN 28 pg (25-35); MEAN CORPUSCULAR HGB CONC 34 g/dL (31-37); MEAN CORPUSCULAR VOLUME 84 fL (79-100); MONO # 0.7 x10^3/uL (0.0-1.1); MONO % 8 % (0-9); NEUT # 6.8 x10^3uL (1.8-7.7); NEUT % 74 % (31-73); PLATELET COUNT 371 x10^3/uL (140-400); RED CELL DISTRIBUTION WIDTH 13.5 % (11.5-14.5); WHITE BLOOD COUNT 9.3 x10^3/uL (4.0-11.0)
[2017-11-04 05:58] LABS: ANION GAP 4 (6-14); BLOOD UREA NITROGEN 16 mg/dL (8-26); CALCIUM 8.1 mg/dL (8.5-10.1); CARBON DIOXIDE 36 mmol/L (21-32); CHLORIDE 101 mmol/L (98-107); CREATININE 0.7 mg/dL (0.7-1.3); GFR 112.8; GLUCOSE 77 mg/dL (70-99); POTASSIUM 3.5 mmol/L (3.5-5.1); SODIUM 141 mmol/L (136-145)
[2017-11-04] MEDS: MELOXICAM 7.5 MG TABLET PO ×2 (08:04)
[2017-11-04] MEDS: CHOLECALCIFEROL (VITAMIN D3) 1,000 UNIT TABLET PO ×2 (08:04)
[2017-11-04] MEDS: TAMSULOSIN 0.4 MG CAP.ER.24H. PO ×4 (08:04→22:19)
[2017-11-04] MEDS: MAGNESIUM OXIDE 400 MG TABLET PO ×2 (08:04)
[2017-11-04] MEDS: METOPROLOL TART IMMED RELEASE 25 MG TABLET. PO ×4 (08:05→22:20)
[2017-11-04] MEDS: ASPIRIN CHEWABLE 81 MG TABLET. PO ×2 (08:05)
[2017-11-04] MEDS: LACTOBACILLUS RHAMNOSUS GG 1 CAPSULE. PO ×4 (08:05→22:19)
[2017-11-04] MEDS: FINASTERIDE 5 MG TABLET. PO ×2 (08:05)
[2017-11-04] MEDS: predniSONE 20 MG TABLET PO ×2 (08:10)
[2017-11-04] MEDS: IPRATRPIUM/ALBUTEROL 0.5/2.5MG 3 ML NEBU. NEB ×8 (08:37→19:45)
[2017-11-04] MEDS: amLODIPine BESYLATE 2.5 MG TABLET PO ×2 (10:04)
[2017-11-04] MEDS: VANCOMYCIN 750 MG in IV NORMAL SALINE 100ML 100 ML IV ×2 (13:57→22:20)
[2017-11-04] MEDS: VANCOMYCIN PER PHARMACY MC ×2 (14:58)
[2017-11-04] MEDS: tiZANidine 4 MG TABLET. PO ×2 (22:19)
[2017-11-05] MEDS: VANCOMYCIN 750 MG in IV NORMAL SALINE 100ML 100 ML IV (05:10)
[2017-11-05] MEDS: IPRATRPIUM/ALBUTEROL 0.5/2.5MG 3 ML NEBU. NEB ×2 (07:28)
[2017-11-05] MEDS: amLODIPine BESYLATE 2.5 MG TABLET PO ×2 (08:36)
[2017-11-05] MEDS: CHOLECALCIFEROL (VITAMIN D3) 1,000 UNIT TABLET PO ×2 (08:36)
[2017-11-05] MEDS: TAMSULOSIN 0.4 MG CAP.ER.24H. PO ×2 (08:36)
[2017-11-05] MEDS: METOPROLOL TART IMMED RELEASE 25 MG TABLET. PO ×2 (08:37)
[2017-11-05] MEDS: MAGNESIUM OXIDE 400 MG TABLET PO ×2 (08:37)
[2017-11-05] MEDS: MELOXICAM 7.5 MG TABLET PO ×2 (08:37)
[2017-11-05] MEDS: FINASTERIDE 5 MG TABLET. PO ×2 (08:37)
[2017-11-05] MEDS: ASPIRIN CHEWABLE 81 MG TABLET. PO ×2 (08:37)
[2017-11-05] MEDS: LACTOBACILLUS RHAMNOSUS GG 1 CAPSULE. PO ×2 (09:00)
== END 2017-11-05 09:46 | disposition home or self-care (01) | DRG 871 ==
LOC: ER 21:52 → 5 NORTH 23:16
DX: A41.9 Sepsis, unspecified organism (principal); J96.01 Acute respiratory failure with hypoxia; E43 Unspecified severe protein-calorie malnutrition; J90 Pleural effusion, not elsewhere classified; J18.9 Pneumonia, unspecified organism; J96.21 Acute and chronic respiratory failure with hypoxia; J44.0 Chronic obstructive pulmonary disease with (acute) lower respiratory infection; J44.1 Chronic obstructive pulmonary disease with (acute) exacerbation; D64.9 Anemia, unspecified; G83.21 Monoplegia of upper limb affecting right dominant side; I10 Essential (primary) hypertension; N40.0 Benign prostatic hyperplasia without lower urinary tract symptoms; M19.90 Unspecified osteoarthritis, unspecified site; Z87.891 Personal history of nicotine dependence; Z90.2 Acquired absence of lung [part of]; Z68.21 Body mass index [BMI] 21.0-21.9, adult; Z90.49 Acquired absence of other specified parts of digestive tract
CPT/HCPCS: 36415; 71045; 71250; 80048; 80053; 80202; 82553; 83605; 83880; 84484; 85007; 85025; 87040; 87070; 87205; 87804; 87804-59; 93005; 94640; 94760; 96374; 97110-GP; 97116-GP; 97161-GP; 97530-GP; 99285; 99285-25; J1956; J2920; J2930; J3370; J7030; J7512; J7620

== ENCOUNTER → 2017-12-15 | Outpatient (CLI) | payer BC | END | disposition home or self-care (01) | LOC: KCIC 09:19 | DX: J44.0 Chronic obstructive pulmonary disease with (acute) lower respiratory infection (principal); J18.1 Lobar pneumonia, unspecified organism | CPT/HCPCS: 71046 ==

== ENCOUNTER → 2018-01-20 | Outpatient (CLI) | payer BC | END | disposition home or self-care (01) | LOC: KCIC 15:36 | DX: M25.512 Pain in left shoulder (principal) | CPT/HCPCS: 73030 ==

== ENCOUNTER → 2019-03-24 | Outpatient (CLI) | payer BC ==
[2017-11-05 08:37] VITALS: BP 173/92
[~2019-03-24] MED LIST changes: +AMLO2.5T5 PO; +AMOX1TAB61 PO; +ASPI-630 PO; -ASPI81TA2 PO; +CIPR250T PO; +FINA5TAB4 PO; -IPRA3AMP NEB; +IPRA3AMP29 NEB; +MAGN250T10 PO; -MAGN250T5 PO; -MELO-156 PO; +MELO7.5T29 PO; +Magnesium Oxide PO
--- NOTE | 2019-03-24 10:09 | CARD ---
MR#: [id number] Date of Study: 03/24/2019 Ordering Physician: EMILY GARCIA, Referring Physician: EMILY GARCIA, Tech: Yael Boggs [facility] APPROVED REPORT EXAM: Two-dimensional and M-mode echocardiogram with Doppler and color Doppler. Other Information Quality : AverageHR: 78bpm Rhythm : NSR INDICATION Shortness of breath 2D DIMENSIONS RVDd2.9 (2.9-3.5cm)Left Atrium(2D)2.8 (1.6-4.0cm) IVSd1.2 (0.7-1.1cm)Aortic Root(2D)3.4 (2.0-3.7cm) LVDd4.5 (3.9-5.9cm)LVOT Diameter1.9 (1.8-2.4cm) PWd0.9 (0.7-1.1cm)LVDs3.2 (2.5-4.0cm) FS (%) 28.5 %SV50.3 ml LVEF(%)55.1 (>50%) Aortic Valve AoV Peak Diogo.128.4cm/sAoV VTI25.7cm AO Peak GR.6.6mmHgLVOT Peak Diogo.86.0cm/s AO Mean GR.3mmHgAVA (VMAX)1.89cm2 TAYA (VTI)1.90cm2 Mitral Valve MV E Ippxbgdo27.9cm/sMV DECEL EWIJ017ih MV A Nrtqtqyb10.1cm/sE/A Ratio1.1 MV A Rrcfmkmh17bk Pulmonary Valve PV Peak Yfouloju13.5cm/s Tricuspid Valve TR P. Qcmlfhdn856zq/sRAP OPKXJTYP1vqXi TR Peak Gr.41xoFuNQBO22yxZh LEFT VENTRICLE The left ventricle is normal size. Proximal septal thickening is noted. The left ventricular systolic function is normal. The Ejection Fraction is 55-60%. There is normal LV segmental wall motion. RIGHT VENTRICLE The right ventricle is normal size. There is normal right ventricular wall thickness. The right ventr icular systolic function is normal. ATRIA The left atrium size is normal. The right atrium size is normal. The interatrial septum is intact wit h no evidence for an atrial septal defect or patent foramen ovale as noted on 2-D or Doppler imaging. AORTIC VALVE The aortic valve is normal in structure and function. The aortic valve is trileaflet. Doppler and Col or Flow revealed no significant aortic regurgitation. There is no significant aortic valvular stenosi s. MITRAL VALVE The mitral valve is normal in structure and function. There is no evidence of mitral valve prolapse. There is no mitral valve stenosis. Doppler and Color-flow revealed trace mitral regurgitation. TRICUSPID VALVE The tricuspid valve is normal in structure and function. Doppler and Color Flow revealed trace tricus pid regurgitation. There is moderate pulmonary hypertension. The PA pressure was estimated at 47 mmHg . There is no tricuspid valve prolapse or vegetation. PULMONIC VALVE The pulmonary valve is normal in structure and function. Doppler and Color Flow revealed no pulmonic valvular regurgitation. There is no pulmonic valvular stenosis. GREAT VESSELS The aortic root is normal in size. The ascending aorta is normal in size. The IVC is normal in size a nd collapses >50% with inspiration. PERICARDIAL EFFUSION There is no evidence of significant pericardial effusion. Critical Notification Critical Value: No <Conclusion> The left ventricular systolic function is normal. The Ejection Fraction is 55-60%. There is normal LV segmental wall motion. Trace mitral regurgitation. Trace tricuspid regurgitation. The PA pressure was estimated at 47 mmHg. There is no evidence of significant pericardial effusion. Signed by : Yuriy Hopkins, Electronically Approved : 03/24/2019 10:09:09
== END | disposition home or self-care (01) ==
LOC: ECHO 08:40
PROVIDERS: ATTEND Internal Medicine Cardiovascular Disease
DX: I27.20 Pulmonary hypertension, unspecified (principal)
CPT/HCPCS: 93306

== ENCOUNTER 2019-11-21 08:52 | Emergency (ER) | payer BC ==
[~2019-11-21] VITALS: Ht 175.3 cm; Wt 65.9 kg
[~2019-11-21 08:52] MED LIST changes: +LISI1TAB23 PO; -LISI1TAB3 PO; -TIZA4TAB PO; +TIZA4TAB2 PO
[2019-11-21] MEDS ORDERED: IV NORMAL SALINE 1000ML BAG 1,000 ML IV ONE (10:00)
[2019-11-21 10:10] LABS: BASO # 0.1 x10^3/uL (0.0-0.2); BASO % 1 % (0-3); EOS # 0.1 x10^3/uL (0.0-0.7); EOS % 3 % (0-3); HEMATOCRIT 40.3 % (39.0-53.0); HEMOGLOBIN 13.2 g/dL (13.0-17.5); LYMPH # 1.4 x10^3/uL (1.0-4.8); LYMPH % 28 % (24-48); MEAN CORPUSCULAR HEMOGLOBIN 28 pg (25-35); MEAN CORPUSCULAR HGB CONC 33 g/dL (31-37); MEAN CORPUSCULAR VOLUME 85 fL (79-100); MONO # 0.4 x10^3/uL (0.0-1.1); MONO % 8 % (0-9); NEUT # 2.9 x10^3/uL (1.8-7.7); NEUT % 59 % (31-73); PLATELET COUNT 193 x10^3/uL (140-400); RED BLOOD COUNT 4.75 x10^6/uL (4.30-5.70); RED CELL DISTRIBUTION WIDTH 15.2 % (11.5-14.5)
--- NOTE | 2019-11-21 10:18 | RAD ---
Examination: CT HEAD WO CONTRAST History: Dizziness Comparison/Correlation: None Findings: Axial images of the head were obtained without contrast. Mild atrophy is present. No intracranial hemorrhage, midline shift, or mass effect. 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 The globes and optic nerves are unremarkable. Impression: No definite acute process. PQRS Compliance Statement: One or more of the following individualized dose reduction techniques were utilized for this examination: 1. Automated exposure control 2. Adjustment of the mA and/or kV according to patient size 3. Use of iterative reconstruction technique Electronically signed by: Zeus Humphrey MD (11/21/2019 10:15 AM) [id number]
[2019-11-21 10:19] LABS: CALCIUM 8.4 mg/dL (8.5-10.1); GFR 74.3; POTASSIUM 3.8 mmol/L (3.5-5.1); PROTHROMBIN TIME PATIENT 14.4 SEC (11.7-14.0)
[2019-11-21 10:24] LABS: ALBUMIN 3.4 g/dL (3.4-5.0); ALBUMIN/GLOBULIN RATIO 1.1 (1.0-1.7); MAGNESIUM 2.1 mg/dL (1.8-2.4); TOTAL PROTEIN 6.4 g/dL (6.4-8.2)
[2019-11-21 12:25] LABS: BILIRUBIN,URINE NEGATIVE (NEG); CLARITY,URINE CLEAR; COLOR,URINE YELLOW; NITRITE,URINE NEGATIVE (NEG); PROTEIN,URINE NEGATIVE (NEG-TRACE); UROBILINOGEN,URINE 0.2 mg/dL (0.2 mg/dL)
[2019-11-21 12:31] VITALS: BP 148/82
[2019-11-21 12:43] LABS: BACTERIA,URINE MANY /HPF (0-FEW); HYALINE CASTS, URINE MODERATE /HPF; RBC,URINE 0 /HPF (0-2)
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
--- NOTE | 2019-11-22 01:44 | EKG ---
[facility] [address] [place] [address] Test Date: 2019-11-21 Test Time: 10:27:06 Pat Name: PHILIP ABDULLAHI Department: Room: Gender: M [employer]: : 1950 Requested By: KOURTNEY HOLLAND Order Number: [id number] Reading MD: Measurements Intervals [place] Rate: 50 P: 49 OR: 196 QRS: 17 QRSD: 86 T: 39 QT: 478 QTc: 439 Interpretive Statements SINUS RHYTHM LEFT ATRIAL ABNORMALITY ST & T ABNORMALITY, CONSIDER HIGH LATERAL ISCHEMIA OR LEFT VENTRICULAR STRAIN ABNORMAL ECG RI6.01 No previous ECG available for comparison
== END 2019-11-21 13:07 | disposition home or self-care (01) ==
LOC: ER 08:52
DX: R00.1 Bradycardia, unspecified (principal); R42 Dizziness and giddiness; R53.1 Weakness; T44.7X5A Adverse effect of beta-adrenoreceptor antagonists, initial encounter; M19.90 Unspecified osteoarthritis, unspecified site; J44.9 Chronic obstructive pulmonary disease, unspecified; I10 Essential (primary) hypertension; Z87.891 Personal history of nicotine dependence; Z90.49 Acquired absence of other specified parts of digestive tract; Z98.890 Other specified postprocedural states; Z91.128 Patient's intentional underdosing of medication regimen for other reason; Y92.89 Other specified places as the place of occurrence of the external cause
CPT/HCPCS: 36415; 70450; 80053; 81001; 83735; 83880; 85025; 85610; 85730; 87086; 93005; 96360; 96361; 99285; J7030; 99284

== ENCOUNTER → 2020-07-11 | Outpatient (CLI) | payer BC ==
--- NOTE | 2020-07-11 13:05 | CARD ---
MR#: [id number] Date of Study: 07/11/2020 Ordering Physician: EMILY GARCIA, Referring Physician: EMILY GARCIA, Tech: Chloé Mckeon [facility] APPROVED REPORT EXAM: Two-dimensional and M-mode echocardiogram with Doppler and color Doppler. Other Information Quality : Good INDICATION Dyspnea 2D DIMENSIONS RVDd2.3 (2.9-3.5cm)Left Atrium(2D)3.3 (1.6-4.0cm) IVSd0.9 (0.7-1.1cm)Aortic Root(2D)3.3 (2.0-3.7cm) LVDd4.9 (3.9-5.9cm)LVOT Diameter2.0 (1.8-2.4cm) PWd0.9 (0.7-1.1cm)LVDs3.1 (2.5-4.0cm) FS (%) 36.1 %SV74.4 ml LVEF(%)65.5 (>50%) Aortic Valve AoV Peak Diogo.98.2cm/sAoV VTI20.9cm AO Peak GR.3.9mmHgLVOT Peak Diogo.78.2cm/s AO Mean GR.2mmHgAVA (VMAX)2.53cm2 TAYA (VTI)3.00cm2 Mitral Valve MV E Tdunwcsk30.5cm/sMV DECEL ERYE426pb MV A Mnognfcy75.1cm/sE/A Ratio1.0 Tricuspid Valve TR P. Fyyhculm697kk/sRAP SNUASNID4heVc TR Peak Gr.55qwTwTBHV72usMk Pulmonary Vein S1 Qdnsnfuw99.5cm/sD2 Phlxoitu68.4cm/s LEFT VENTRICLE The left ventricle is normal size. There is normal left ventricular wall thickness. The left ventricu lar systolic function is normal. The Ejection Fraction is 60-65%. There is normal LV segmental wall m otion. RIGHT VENTRICLE The right ventricle is normal size. The right ventricular systolic function is normal. ATRIA The left atrium size is normal. The right atrium size is normal. The interatrial septum is intact wit h no evidence for an atrial septal defect or patent foramen ovale as noted on 2-D or Doppler imaging. AORTIC VALVE The aortic valve is calcified but opens well. Doppler and Color Flow revealed no significant aortic r egurgitation. There is no significant aortic valvular stenosis. MITRAL VALVE The mitral valve is calcified but opens well. There is no evidence of mitral valve prolapse. There is no mitral valve stenosis. Doppler and Color-flow revealed trace mitral regurgitation. TRICUSPID VALVE The tricuspid valve is normal in structure and function. Doppler and Color Flow revealed mild tricusp id regurgitation. There is mild to moderate pulmonary hypertension. The PA pressure was estimated at 40 mmHg. There is no tricuspid valve stenosis. PULMONIC VALVE The pulmonic valve is not well visualized. Doppler and Color Flow revealed trace to mild pulmonic fanta vular regurgitation. There is no pulmonic valvular stenosis. GREAT VESSELS The aortic root is normal in size. The ascending aorta is normal in size. The IVC is normal in size a nd collapses >50% with inspiration. PERICARDIAL EFFUSION There is no evidence of significant pericardial effusion. Critical Notification Critical Value: No <Conclusion> The left ventricular systolic function is normal. The Ejection Fraction is 60-65%. There is normal LV segmental wall motion. Trace mitral regurgitation. Mild tricuspid regurgitation. The PA pressure was estimated at 40 mmHg. There is no evidence of significant pericardial effusion. Signed by : Yuriy Hopkins, Electronically Approved : 07/11/2020 13:04:57
== END ==
LOC: ECHO 09:40
PROVIDERS: ATTEND Internal Medicine Cardiovascular Disease
DX: I08.8 Other rheumatic multiple valve diseases (principal)
CPT/HCPCS: 93306

== ENCOUNTER → 2022-01-22 | Outpatient (CLI) | payer BC ==
[~2022-01-22] MED LIST changes: -LISI-338 PO; -LISI1TAB23 PO; +LISI1TAB35 PO; +LISI5TAB15 PO; +TIZA-75 PO; -TIZA4TAB2 PO
--- NOTE | 2022-01-22 16:58 | CARD ---
MR#: [id number] Date of Study: 01/22/2022 Ordering Physician: BHARAT ADAIR, Referring Physician: BHARAT ADAIR, Tech: Chichi Cortes [facility] APPROVED REPORT EXAM: Two-dimensional and M-mode echocardiogram with Doppler and color Doppler. Other Information Quality : GoodHR: 80bpm Rhythm : NSR INDICATION Pulmonary Hypertention 2D DIMENSIONS RVDd2.1 (2.9-3.5cm)Left Atrium(2D)3.0 (1.6-4.0cm) IVSd0.7 (0.7-1.1cm)Aortic Root(2D)3.2 (2.0-3.7cm) LVDd3.8 (3.9-5.9cm)LVOT Diameter2.3 (1.8-2.4cm) PWd0.9 (0.7-1.1cm)LVDs2.4 (2.5-4.0cm) FS (%) 37.7 %SV43.0 ml Aortic Valve AoV Peak Diogo.101.1cm/sAoV VTI21.6cm AO Peak GR.4.1mmHgAO Mean GR.2mmHg Mitral Valve MV E Zhfkqzmr86.4cm/sMV DECEL YCQD723lx MV A Cgdnirpp18.4cm/sMV TYA04ez E/A Ratio1.1MVA (PHT)3.00cm2 TDI E/Lateral E'8.1E/Medial E'7.9 Pulmonary Valve PV Peak Ekcfaeun53.8cm/sPV Peak Grad.4mmHg Tricuspid Valve TR P. Kswaqmel544pc/sTR Peak Gr.19mmHg Pulmonary Vein S1 Kmunoqkc04.3cm/sD2 Wlnwktbk97.5cm/s PVa kjclsdkg671fmqo LEFT VENTRICLE The left ventricle is normal size. There is normal left ventricular wall thickness. The left ventricu lar systolic function is normal and the ejection fraction is within normal range. LV ejection fractio n of 55 to 60%. No regional wall motion abnormalities noted. The left ventricular diastolic function is normal. No left ventricle thrombus noted on this study. There is no ventricular septal defect visu alized. There is no left ventricular aneurysm. There is no mass noted in the left ventricle. RIGHT VENTRICLE The right ventricle is normal size. There is normal right ventricular wall thickness. The right ventr icular systolic function is normal. ATRIA The left atrium size is normal. The right atrium size is normal. The interatrial septum is intact wit h no evidence for an atrial septal defect or patent foramen ovale as noted on 2-D or Doppler imaging. AORTIC VALVE The aortic valve is normal in structure and function. No aortic regurgitation is present. There is no aortic valvular stenosis. There is no aortic valvular vegetation. MITRAL VALVE The mitral valve is normal in structure and function. There is no evidence of mitral valve prolapse. There is no mitral valve stenosis. Doppler and Color-flow revealed trace mitral regurgitation. TRICUSPID VALVE The tricuspid valve is normal in structure and function. Doppler and Color Flow revealed mild tricusp id regurgitation. The pulmonary artery systolic pressure is estimated at less than 30 mmHg. There is no tricuspid valve prolapse or vegetation. There is no tricuspid valve stenosis. PULMONIC VALVE The pulmonary valve is normal in structure and function. There is no pulmonic valvular regurgitation. There is no pulmonic valvular stenosis. GREAT VESSELS The aortic root is normal in size. The ascending aorta is normal in size. The pulmonary artery is nor mal. The IVC is normal in size and collapses >50% with inspiration. PERICARDIAL EFFUSION There is no pleural effusion. The pericardium appears normal. Critical Notification Critical Value: No <Conclusion> The left ventricle is normal size. The left ventricular systolic function is normal and the ejection fraction is within normal range. LV ejection fraction of 55 to 60%. No aortic regurgitation is present. There is no aortic valvular stenosis. Doppler and Color-flow revealed trace mitral regurgitation. Doppler and Color Flow revealed mild tricuspid regurgitation. The pulmonary artery systolic pressure is estimated at less than 30 mmHg. Signed by : Bharat Adair MD Electronically Approved : 01/22/2022 16:58:00
== END ==
LOC: ECHO 12:27
PROVIDERS: ATTEND Internal Medicine Cardiovascular Disease
DX: I07.1 Rheumatic tricuspid insufficiency (principal); I27.0 Primary pulmonary hypertension
CPT/HCPCS: 93306; C8929